=== PATIENT | female | born 1955 | race African-American/Black ===

== ENCOUNTER 2017-02-20 00:23 | Emergency (ER) | payer OTHER ==
--- NOTE | 2017-02-20 00:30 | PDOC ---
History of Present Illness - History of Present Illness Initial Comments: 02/20/17 00:52 The patient is a 61 year old female, with a significant past medical history of Asthma, [place] (2003), COPD, HLD who presents to the emergency department with difficulty breathing for the past 2 days. Prior to arrival, patient reports to using her albuterol pump multiple times with no relief. Patient reports her Asthma triggers are weather changes around this time of year. Patient denies chest pain, headache or dizziness. She denies fever, chills, abdominal pain, nausea, vomit, diarrhea or constipation. She denies dysuria, frequency, urgency or hematuria. PAST MEDICAL HISTORY: Asthma, [place] (2003), COPD, HLD PAST SURGICAL HISTORY:Gastric bypass, Appendectomy, Cardiac stent placement FAMILY HISTORY: no pertinent history SOCIAL HISTORY: Pt lives with family and is employed. Former smoker 20 years ago MEDICATIONS: reviewed ALLERGIES: Ciprofloxacin, Ciprofloxacin HCl , IV dye, Lactose General: No fevers or chills, no weakness, no weight loss HEENT: No change in vision. No sore throat, No ear pain CardioVascular: No chest pain or shortness of breath Respiratory:+wheezing +cough Gastrointestinal: no nausea, vomiting, diarrhea or constipation, No rectal bleeding Genitourinary: No dysuria, hematuria, or frequency Musculoskeletal: No joint or muscle pain or swelling Neurologic: No headache, vertigo, dizziness or loss of consciousness Psychiatric: nor depression Skin: No rashes or easy bruising Endocrine: no increased thirst or abnormal weight change Allergic: no skin or latex allergy All other systems reviewed and normal General: Well-nourished well-developed individual, no acute distress HEENT: Throat: Normal, tonsils normal, no erythema or exudate Neck: Supple, no meningeal signs, no lymphadenopathy Eyes::Pupils equal reactive and round, extraocular motion intact Chest: Nontender to palpation Cardiac: S1-S2 normal, regular rate and rhythm, no murmurs rubs or gallops Respiratory: +Mild expiratory wheezing Expiratory and inspiratory phases are equal. Abdomen: Soft, nondistended, normal bowel sounds, nontender to palpation diffusely Extremities: Warm, dry, no cyanosis, clubbing, or edema Skin: No rashes Neuro: Alert and oriented x3, nonfocal exam, grossly intact, normal gait Psych: Normal mood and affect <Sammi Funez - Last Filed: 02/20/17 00:52> - General History Source: Patient Exam Limitations: No Limitations - History of Present Illness Initial Comments: 02/20/17 01:07 A portion of this note was documented by scribe services under my direction. I have reviewed the details of the note, within reason, and agree with the documentation. The case summary and management plan written by me. Assessment and plan: This 61-year-old. Patient has a history of asthma with acute exacerbation. Patient said this is typical for her this time he is secondary to the pollens and seasonal ALLERGIES. Patient had been taking her inhaler every 4 hours with improvement in her symptoms return again. Patient's says that she normally takes prednisone. Patient given several DuoNeb's in the emergency room and a dose of penicillin prescription for prednisone was sent to her pharmacy Patient otherwise has her medication. Patient has a primary care physician she can follow-up with 02/20/17 01:59 Reevaluation: Patient feels much better status very mild wheezing patient has nebulizer and inhalers at home. <Mayito Rivera I - Last Filed: 02/20/17 02:00> - General Stated Complaint: DIFFICULTY BREATHING Time Seen by Provider: 02/20/17 00:29 Past History <Sammi Funez - Last Filed: 02/20/17 00:52> - Past Medical History Anemia: No Asthma: Yes Cancer: No Cardiac Disorders: Yes ([place] 2013) CVA: No COPD: Yes CHF: No Dementia: No Diabetes: No GI Disorders: No Disorders: No HTN: Yes Hypercholesterolemia: Yes Liver Disease: No Suicide Attempt (Hx): No Seizures: No Thyroid Disease: No - Surgical History Abdominal Surgery: Yes (Gastric bypass-SLEEVE) Appendectomy: Yes Cardiac Surgery: Yes (CARDIAC STENTS) Cholecystectomy: No Lung Surgery: No Neurologic Surgery: No Orthopedic Surgery: No - Immunization History Immunization Up to Date: No - Psycho/Social/Smoking Cessation Hx Anxiety: No Suicidal Ideation: No Smoking Status: No Smoking History: Former smoker Have you smoked in the past 12 months: No Number of Cigarettes Smoked Daily: 12 If you are a former smoker, when did you quit?: 20 years ago Hx Alcohol Use: No Drug/Substance Use Hx: No Substance Use Type: None Hx Substance Use Treatment: No <Mayito Rivera I - Last Filed: 02/20/17 02:00> - Past Medical History Allergies/Adverse Reactions: Allergies Allergy/AdvReac Type Severity Reaction Status Date / Time ciprofloxacin [From Cipro] Allergy Intermediate anaphylaxis Verified 04/20/16 07 :09 ciprofloxacin HCl Allergy Intermediate anaphylaxis Verified 04/20/16 07:09 [From Cipro] Iodinated Contrast- Oral and Allergy Intermediate anaphylaxis Verified 04/20/16 07:09 IV Dye lactose Allergy Intermediate Verified 04/20/16 07:09 Home Medications: Ambulatory Orders Clopidogrel Bisulfate [Clopidogrel] 75 mg PO DAILY 10/28/15 Valsartan [Diovan] 80 mg PO DAILY 10/28/15 Diltiazem Cd [Cardizem Cd -] 240 mg PO DAILY 03/26/16 Furosemide [Lasix -] 20 mg PO DAILY 03/26/16 Pravastatin Sodium 20 mg PO DAILY 03/26/16 Prednisone [Deltasone] 40 mg PO DAILY #8 tablet 02/20/17 *Physical Exam - Vital Signs Last Vital Signs Temp Pulse Resp BP Pulse Ox 97.9 F 85 26 H 202/109 96 02/20/17 00:35 02/20/17 00:35 02/20/17 00:35 02/20/17 00:35 02/20/17 00:35 <Sammi Funez - Last Filed: 02/20/17 00:52> ED Treatment Course - Medications Given in the ED: ED Medications Discontinued Medications Generic Name Dose Route Start Last Admin Trade Name Freq PRN Reason Stop Dose Admin Prednisone 60 mg 02/20/17 00:36 02/20/17 00:51 Deltasone - PO 02/20/17 00:37 60 mg ONCE ONE Administration <Sammi Funez - Last Filed: 02/20/17 00:52> *DC/Admit/Observation/Transfer - Attestations Scribe Attestion: 02/20/17 00:53 Documentation prepared by Sammi Funez, acting as emergency medicine medical director for Mayito Rivera MD <Sammi Funez - Last Filed: 02/20/17 00:52> <Mayito Rivera I - Last Filed: 02/20/17 02:00> Diagnosis at time of Disposition: Exacerbation of asthma - Prescriptions Prescriptions: Prednisone [Deltasone] 40 mg PO DAILY #8 tablet - Referrals Referrals: Сергей Alamo MD [Primary Care Provider] - - Patient Instructions Printed Discharge Instructions: Asthma -- Adult Additional Instructions: Take prednisone 40 mg a day for 4 days Use your inhaler 2 puffs as often as every 4 hours if needed. Return to the emergency department immediately with ANY new, persistent or worsening symptoms. Continue any medications as previously prescribed by your physician. You should follow up with your primary doctor as soon as possible regarding today's emergency department visit. . Please make sure your doctor reviews the results of your emergency evaluation. Thank you for coming to the Emergency Department today for your care. It was a pleasure to see you today. Please note that your evaluation is INCOMPLETE until you follow-up with your doctor.
[2017-02-20] MEDS ORDERED: predniSONE 20 MG TABLET (UD) PO ONE (00:36)
[2017-02-20 00:39] VITALS: TEMP 97.9; BMI 28.1
[2017-02-20] MEDS ORDERED: predniSONE 20 MG TABLET (UD) ONE (00:51)
[2017-02-20] MEDS: ALBUTEROL SO4 2.5/IPRATROPIUM 0.5 INH SOL 3 ML VIAL.NEB. NEB SCH ×4 (00:51→01:44)
[2017-02-20 02:16] VITALS: BP 152/101; PULSE 93
== END 2017-02-20 02:14 | disposition home or self-care (01) ==
LOC: JER 00:23
PROC: 3E0F7GC Introduction of Other Therapeutic Substance into Respiratory Tract, Via Natural or Artificial Opening (ICD-10-PCS; principal; 2017-02-20)
DX: J45.901 Unspecified asthma with (acute) exacerbation (principal); I25.2 Old myocardial infarction; I10 Essential (primary) hypertension; Z87.891 Personal history of nicotine dependence; Z95.5 Presence of coronary angioplasty implant and graft; J44.9 Chronic obstructive pulmonary disease, unspecified; E78.00 Pure hypercholesterolemia, unspecified
CPT/HCPCS: 99281-25

== ENCOUNTER 2017-05-08 13:42 | Emergency (ER) | payer OTHER ==
[2017-05-08 13:50] VITALS: TEMP 98.1; BMI 34.0
--- NOTE | 2017-05-08 14:27 | PDOC ---
History of Present Illness - General History Source: Patient Exam Limitations: No Limitations - History of Present Illness Initial Comments: 05/08/17 14:59 The patient is a 62 year old female, with a significant past medical history of COPD, Asthma, CHF, HLD, HTN, CAD (s/p VT) who presents to the emergency department with URI symptoms for the past 2 weeks. Patient reports visiting her PCP for these symptoms and was prescribed course of steroids and antibiotics. Patient has completed her 14 day course of steroids with no relief. Patient now reports productive (yellow) cough, with sore throat, fever, clear rhinorrhea and wheezing. Patient also notes to missing several doses of her Lasix medications. Patient notes increased leg edema and presents to the ED for further evaluation. 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 Patient denies chest pain, headache or dizziness. Patient denies abdominal pain , nausea, vomit, diarrhea or constipation. Patient denies dysuria, frequency, urgency or hematuria. Patient denies recent travel. Allergies: ciprofloxacin , ciprofloxacin HCl, Iodinated Contrast, lactose Past surgical history: None Social history: None PCP: Dr. Alamo Cardio: Russ <Sammi Funez - Last Filed: 05/08/17 15:00> <Gerber Warren - Last Filed: 05/08/17 17:03> - General Chief Complaint: Shortness of Breath Stated Complaint: COUGH, SOB Time Seen by Provider: 05/08/17 14:20 Past History <Sammi Funez - Last Filed: 05/08/17 15:00> - Past Medical History Anemia: No Asthma: Yes Cancer: No Cardiac Disorders: Yes ([place] 2013) CVA: No COPD: Yes CHF: No Dementia: No Diabetes: No GI Disorders: No Disorders: No HTN: Yes Hypercholesterolemia: Yes Liver Disease: No Seizures: No Thyroid Disease: No - Surgical History Abdominal Surgery: Yes (Gastric bypass-SLEEVE) Appendectomy: Yes Cardiac Surgery: Yes (CARDIAC STENTS) Cholecystectomy: No Lung Surgery: No Neurologic Surgery: No Orthopedic Surgery: No - Immunization History Immunization Up to Date: No - Suicide/Smoking/Psychosocial Hx Smoking Status: No Smoking History: Never smoked Have you smoked in the past 12 months: No Number of Cigarettes Smoked Daily: 12 If you are a former smoker, when did you quit?: 20 years ago Information on smoking cessation initiated: No Hx Alcohol Use: No Drug/Substance Use Hx: No Substance Use Type: None Hx Substance Use Treatment: No <Gerber Warren - Last Filed: 05/08/17 17:03> - Past Medical History Allergies/Adverse Reactions: Allergies Allergy/AdvReac Type Severity Reaction Status Date / Time ciprofloxacin [From Cipro] Allergy Intermediate anaphylaxis Verified 05/08/17 13 :50 ciprofloxacin HCl Allergy Intermediate anaphylaxis Verified 05/08/17 13:50 [From Cipro] Iodinated Contrast- Oral and Allergy Intermediate anaphylaxis Verified 05/08/17 13:50 IV Dye lactose Allergy Intermediate Verified 05/08/17 13:50 Home Medications: Ambulatory Orders Clopidogrel Bisulfate [Clopidogrel] 75 mg PO DAILY 10/28/15 Valsartan [Diovan] 80 mg PO DAILY 10/28/15 Diltiazem Cd [Cardizem Cd -] 240 mg PO DAILY 03/26/16 Furosemide [Lasix -] 20 mg PO DAILY 03/26/16 Pravastatin Sodium 20 mg PO DAILY 03/26/16 Albuterol Sulfate Inhaler - [Ventolin Hfa Inhaler -] 1 - 2 inh PO Q4H #1 inhaler 05/08/17 Azithromycin 250 mg PO DAILY 4 Days #4 tablet 05/08/17 Azithromycin 500 mg PO 1XPACU 1 Days #1 tablet 05/08/17 Lorazepam [Ativan] 1 mg PO DAILY 05/08/17 Prednisone 10 mg PO DAILY 3 Days #3 tablet 05/08/17 Review of Systems - Review of Systems Able to Perform ROS?: Yes Comments:: 05/08/17 14:59 A complete review of 10 out of 10 review of systems is taken and is negative apart from what is previously mentioned below and in the HPI. <Sammi Funez - Last Filed: 05/08/17 15:00> *Physical Exam - Vital Signs Last Vital Signs Temp Pulse Resp BP Pulse Ox 98.1 F 92 H 20 163/94 98 05/08/17 13:46 05/08/17 13:46 05/08/17 13:46 05/08/17 13:46 05/08/17 13:46 - Physical Exam Comments: 05/08/17 15:00 Vitals: Triage Vital signs reviewed General Appearance: no acute distress, well nourished well developed, Head: Atraumatic, normocephalic Neck: Supple;No Nuchal rigidity Chest Wall: Nontender Cardiac: Regular rate and rhythm, no murmurs, no rubs, no gallops, Lungs: +Bilateral inspiratory and expiratory wheezing. Good air movement bilaterally, Abdomen: Soft, nondistended, normal bowel sounds, nontender to palpation Extremities: Full range of motion to all extremities, no cyanosis, clubbing, or edema Skin: Warm and dry, no rashes or lesions, no petechiae <Sammi Funez - Last Filed: 05/08/17 15:00> - Vital Signs Last Vital Signs Temp Pulse Resp BP Pulse Ox 98.1 F 92 H 20 163/94 98 05/08/17 13:46 05/08/17 13:46 05/08/17 13:46 05/08/17 13:46 05/08/17 13:46 <Gerber Warren - Last Filed: 05/08/17 17:03> ED Treatment Course - LABORATORY CBC & Chemistry Diagram: 05/08/17 14:55 05/08/17 14:55 - Medications Given in the ED: ED Medications Discontinued Medications Generic Name Dose Route Start Last Admin Trade Name Freq PRN Reason Stop Dose Admin Albuterol/Ipratropium 3 amp 05/08/17 14:28 05/08/17 14:40 Duoneb - NEB 05/08/17 14:29 3 amp ONCE ONE Administration <Sammi Funez - Last Filed: 05/08/17 15:00> - LABORATORY CBC & Chemistry Diagram: 05/08/17 14:55 05/08/17 14:55 <Gerber Warren - Last Filed: 05/08/17 17:03> Medical Decision Making - Medical Decision Making 05/08/17 15:09 Well-appearing no apparent distress history and examination consistent with viral asthma exacerbation. Patient has also stopped taking her by mouth Lasix at home. We'll give her her home dose of by mouth Lasix. We'll check chest x-ray labs do nebs and reassess. 05/08/17 16:19 History and examination consistent with wheezy bronchitis. We'll treat with Z- Iglesia additional 3 days of 10 mg prednisone and Ventolin MDI. Patient will follow- up with her doctor on Wednesday. No acute findings consistent with pneumonia on chest x-ray Findings, need follow-up and strict return instructions discussed with patient. Reevaluation 445. As patient was leaving she mentioned that she had a crampy pain on the left side. She attributed this to coughing. We advised her to stay for an EKG and a troponin given her past medical history the patient's she was competent was muscular and left emergency Department I called the patient at home on her phone advised her to return for any persistent worsening symptoms she said she was feeling better but would return if symptoms worsened <Gerber Warren - Last Filed: 05/08/17 17:03> *DC/Admit/Observation/Transfer - Attestations Scribe Attestion: 05/08/17 15:00 Documentation prepared by Sammi Funez, acting as medical staff coordinator for Gerber Warren MD, /DO. <Sammi Funez - Last Filed: 05/08/17 15:00> - Discharge Dispostion Admit: No <Gerber Warren - Last Filed: 05/08/17 17:03> Diagnosis at time of Disposition: Bronchitis - Discharge Dispostion Disposition: HOME - Prescriptions Prescriptions: Albuterol Sulfate Inhaler - [Ventolin Hfa Inhaler -] 1 - 2 inh PO Q4H #1 inhaler Azithromycin 250 mg PO DAILY 4 Days #4 tablet Azithromycin 500 mg PO 1XPACU 1 Days #1 tablet Prednisone 10 mg PO DAILY 3 Days #3 tablet - Referrals Referrals: Сергей Alamo MD [Primary Care Provider] - - Patient Instructions Printed Discharge Instructions: Acute Bronchitis Additional Instructions: Azithromycin, prednisone, Ventolin MDI as prescribed. Follow-up with her doctor on Wednesday. Return to ED for any severe worsening symptoms or for any concerns. Do not skip any medications including her Lasix.
[2017-05-08] MEDS ORDERED: ALBUTEROL SO4 2.5/IPRATROPIUM 0.5 INH SOL 3 ML VIAL.NEB. NEB ONE ×2 (14:28→14:41)
[2017-05-08 15:01] LABS: BASOPHIL 0.8 % (0-2.0); EOSINOPHIL 0.1 % (0-4.5); MCH 25.6 pg (25.7-33.7); MCHC 33.2 g/dl (32.0-36.0); MEAN CELL VOLUME 77.3 fl (80-96); MEAN PLT VOLUME 8.8 fl (7.5-11.1); NEUTROPHILS 83.1 % (42.8-82.8); PLATELET COUNT 316 K/MM3 (134-434); RDW 20.2 % (11.6-15.6); WHITE BLOOD COUNT 14.4 K/mm3 (4.0-10.0)
[2017-05-08] MEDS ORDERED: FUROSEMIDE 40 MG TABLET (FP) ONE (15:10)
[2017-05-08] MEDS ORDERED: FUROSEMIDE 40 MG TABLET (FP) PO ONE (15:10)
[2017-05-08 15:25] LABS: ALBUMIN 3.8 g/dl (3.4-5.0); ALK PHOS 75 U/L (45-117); ANION GAP 8 (8-16); BILIRUBIN,TOTAL 0.8 mg/dL (0.2-1.0); CALCIUM 9.4 mg/dL (8.5-10.1); CO2 32 mmol/L (21-32); GLUCOSE,RANDOM 120 mg/dL (74-106); SGOT/AST 14 U/L (15-37); SGPT/ALT 25 U/L (12-78); TOT PROT 7.3 g/dl (6.4-8.2)
[2017-05-08 16:43] VITALS: BP 157/66; PULSE 89
== END 2017-05-08 16:43 | disposition home or self-care (01) ==
LOC: JER 13:42
PROC: 3E0F7GC Introduction of Other Therapeutic Substance into Respiratory Tract, Via Natural or Artificial Opening (ICD-10-PCS; principal; 2017-05-08)
DX: J40 Bronchitis, not specified as acute or chronic (principal); J44.9 Chronic obstructive pulmonary disease, unspecified; I50.9 Heart failure, unspecified; E78.5 Hyperlipidemia, unspecified; I25.2 Old myocardial infarction
CPT/HCPCS: 36415; 71020-TC; 80053; 83880; 85025; 87804; 99283-25

== ENCOUNTER 2017-05-28 09:44 | Observation (INO) | payer OTHER ==
[2017-05-28 09:50] VITALS: BMI 40.2
[2017-05-28] MEDS ORDERED: ALBUTEROL SO4 2.5/IPRATROPIUM 0.5 INH SOL 3 ML VIAL.NEB. NEB ONE ×4 (11:39→13:42)
[2017-05-28] MEDS ORDERED: predniSONE 20 MG TABLET (UD) PO ONE (11:48)
[2017-05-28] MEDS ORDERED: predniSONE 20 MG TABLET (UD) ONE ×2 (12:00→12:04)
[2017-05-28 13:08] LABS: BASO % 0.5 % (0-2.0); EOS % 8.4 % (0-4.5); MCH 25.6 pg (25.7-33.7); MCHC 32.2 g/dl (32.0-36.0); MEAN CELL VOLUME 79.3 fl (80-96); MEAN PLT VOLUME 8.9 fl (7.5-11.1); NEUT % 37.3 % (42.8-82.8); PLATELET COUNT 312 K/MM3 (134-434); RDW 19.2 % (11.6-15.6)
--- NOTE | 2017-05-28 13:09 | PDOC ---
History of Present Illness - History of Present Illness Initial Comments: 05/28/17 13:41 The patient is a 62 year old female with a significant PMH of COPD, asthma, CHF , HTN, hyperlipidemia, CAD, and 2 past MIs (2013, 2016 s/p stent placement) who presents to the emergency department with wheezing and increased shortness of breath beginning approximately 3 days ago. She reports associated chest pain only when she coughs. The patient reports using her pump this morning at about 1AM to no relief. The patient reports being last seen in the ED on 05/08 for productive cough and shortness of breath, for which she was given a 2-day course of Prednisone. She notes she is frequently in the hospital for her shortness of breath. The patient also notes that she is not fully compliant with her statin or Lasix medications. The patient denies headache and dizziness. Denies fever, chills, nausea, vomit, diarrhea and constipation. Denies dysuria, frequency, urgency and hematuria. Allergies: Ciprofloxacin, Oral & IV contrast, Lactose. Past surgical history: Cardiac stent placement. Gastric bypass SLEEVE. Appendectomy. Social history: Former smoker (20 years ago). No reported alcohol or drug use. PCP: Dr. Alamo [employer] Modeler: Dr. Solano <Josep Rudolph - Last Filed: 05/28/17 14:58> - General History Source: Patient, Old Records Exam Limitations: No Limitations <Josep Cantrell - Last Filed: 05/29/17 08:35> - General Chief Complaint: Shortness of Breath Stated Complaint: SOB (ASTHMA) Time Seen by Provider: 05/28/17 11:08 Past History <Josep Rudolph - Last Filed: 05/28/17 14:58> - Past Medical History Anemia: No Asthma: Yes Cancer: No Cardiac Disorders: Yes (IN 2013) CVA: No COPD: Yes CHF: No Dementia: No Diabetes: No GI Disorders: No Disorders: No HTN: Yes Hypercholesterolemia: Yes Liver Disease: No Seizures: No Thyroid Disease: No - Surgical History Abdominal Surgery: Yes (Gastric bypass-SLEEVE) Appendectomy: Yes Cardiac Surgery: Yes (CARDIAC STENTS) Cholecystectomy: No Lung Surgery: No Neurologic Surgery: No Orthopedic Surgery: No - Immunization History Immunization Up to Date: No - Suicide/Smoking/Psychosocial Hx Smoking Status: No Smoking History: Never smoked Have you smoked in the past 12 months: No Number of Cigarettes Smoked Daily: 12 If you are a former smoker, when did you quit?: 20 years ago Information on smoking cessation initiated: No Hx Alcohol Use: No Drug/Substance Use Hx: No Substance Use Type: None Hx Substance Use Treatment: No <Josep Cantrell - Last Filed: 05/29/17 08:35> - Past Medical History Allergies/Adverse Reactions: Allergies Allergy/AdvReac Type Severity Reaction Status Date / Time ciprofloxacin [From Cipro] Allergy Intermediate anaphylaxis Verified 05/08/17 13 :50 ciprofloxacin HCl Allergy Intermediate anaphylaxis Verified 05/08/17 13:50 [From Cipro] Iodinated Contrast- Oral and Allergy Intermediate anaphylaxis Verified 05/08/17 13:50 IV Dye lactose Allergy Intermediate Verified 05/08/17 13:50 Home Medications: Ambulatory Orders Clopidogrel Bisulfate [Clopidogrel] 75 mg PO DAILY 10/28/15 Valsartan [Diovan] 80 mg PO DAILY 10/28/15 Diltiazem Cd [Cardizem Cd -] 240 mg PO DAILY 03/26/16 Furosemide [Lasix -] 20 mg PO DAILY 03/26/16 Pravastatin Sodium 20 mg PO DAILY 03/26/16 Albuterol Sulfate Inhaler - [Ventolin Hfa Inhaler -] 1 - 2 inh PO Q4H #1 inhaler 05/08/17 Lorazepam [Ativan] 1 mg PO DAILY PRN 05/08/17 Review of Systems - Review of Systems Able to Perform ROS?: Yes Comments:: 05/28/17 13:42 GENERAL/CONSTITUTIONAL: No fever or chills. No weakness. HEAD, EYES, EARS, NOSE AND THROAT: No change in vision. No ear pain or discharge. No sore throat. CARDIOVASCULAR: (+) Chest pain w/ cough. RESPIRATORY: (+) Wheezing. (+) Shortness of breath. No hemoptysis. GASTROINTESTINAL: No nausea, vomiting, diarrhea or constipation. GENITOURINARY: No dysuria, frequency, or change in urination. MUSCULOSKELETAL: No joint or muscle swelling or pain. No neck or back pain. SKIN: No rash NEUROLOGIC: No headache, vertigo, loss of consciousness, or change in strength/ sensation. ENDOCRINE: No increased thirst. No abnormal weight change. HEMATOLOGIC/LYMPHATIC: No anemia, easy bleeding, or history of blood clots. ALLERGIC/IMMUNOLOGIC: No hives or skin allergy. <Josep Rudolph - Last Filed: 05/28/17 14:58> *Physical Exam - Vital Signs Last Vital Signs Temp Pulse Resp BP Pulse Ox 97.9 F 88 24 141/84 100 05/28/17 09:45 05/28/17 11:16 05/28/17 09:45 05/28/17 09:45 05/28/17 11:16 - Physical Exam Comments: 05/28/17 13:42 GENERAL: Awake, alert, and fully oriented, in no acute distress HEAD: No signs of trauma EYES: PERRLA, EOMI, sclera anicteric, conjunctiva clear ENT: Auricles normal inspection, hearing grossly normal, nares patent, oropharynx clear without exudates. Moist mucosa NECK: Normal ROM, supple, no lymphadenopathy, JVD, or masses LUNGS: (+) Bilateral wheezing. No crackles. HEART: Regular rate and rhythm, normal S1 and S2, no murmurs, rubs or gallops ABDOMEN: Soft, nontender, normoactive bowel sounds. No guarding, no rebound. No masses EXTREMITIES: Normal range of motion, no edema. No clubbing or cyanosis. No cords, erythema, or tenderness NEUROLOGICAL: Cranial nerves II through XII grossly intact. Normal speech, normal gait SKIN: Warm, Dry, normal turgor, no rashes or lesions noted. <Josep Rudolph - Last Filed: 05/28/17 14:58> - Vital Signs Last Vital Signs Temp Pulse Resp BP Pulse Ox 97.9 F 88 24 141/84 100 05/28/17 09:45 05/28/17 11:16 05/28/17 09:45 05/28/17 09:45 05/28/17 11:16 <Josep aCntrell - Last Filed: 05/29/17 08:35> Heart Score/ECG Review #1 ECG reviewed & interpreted by me at: 12:35 05/28/17 13:07 NSR 82 with 1st degree AV block, no std/blanca, TWI avL, T wave flat V6, QTC 493 msec <Josep Cantrell - Last Filed: 05/29/17 08:35> ED Treatment Course - LABORATORY CBC & Chemistry Diagram: 05/28/17 12:00 05/28/17 11:39 - ADDITIONAL ORDERS Additional order review: Laboratory Results 05/28/17 12:00 PT with INR 11.30 INR 1.00 PTT (Actin FS) 30.5 05/28/17 12:00 Influenza Types A,B Antigen (MICHAEL) - Final Nasopharyngeal Swab - Final 05/28/17 12:00 RBC 4.86 MCV 79.3 L MCHC 32.2 RDW 19.2 H MPV 8.9 Neutrophils % 37.3 L D Lymphocytes % 49.3 H D Monocytes % 4.5 Eosinophils % 8.4 H D Basophils % 0.5 - Medications Given in the ED: ED Medications Discontinued Medications Generic Name Dose Route Start Last Admin Trade Name Freq PRN Reason Stop Dose Admin Albuterol/Ipratropium 1 amp 05/28/17 11:39 05/28/17 12:03 Duoneb - NEB 05/28/17 11:40 1 amp ONCE ONE Administration Albuterol/Ipratropium 2 amp 05/28/17 11:48 05/28/17 12:53 Duoneb - NEB 05/28/17 11:49 2 amp ONCE ONE Administration Prednisone 60 mg 05/28/17 11:48 05/28/17 12:05 Deltasone - PO 05/28/17 11:49 60 mg ONCE ONE Administration - Consult/PCP Time Called: 14:50 Case discussed with personal care physician: Сергей Alamo (D/w OZ Garcia) <Josep Rudolph - Last Filed: 05/28/17 14:58> - LABORATORY CBC & Chemistry Diagram: 05/28/17 12:00 05/28/17 11:39 - RADIOLOGY Radiology Studies Ordered: Category Date Time Status CHEST X-RAY PORTABLE* [RAD] Stat Radiology 05/28/17 11:39 Completed - Medications Given in the ED: ED Medications Discontinued Medications Generic Name Dose Route Start Last Admin Trade Name Freq PRN Reason Stop Dose Admin Albuterol/Ipratropium 1 amp 05/28/17 11:39 05/28/17 12:03 Duoneb - NEB 05/28/17 11:40 1 amp ONCE ONE Administration Albuterol/Ipratropium 2 amp 05/28/17 11:48 05/28/17 12:53 Duoneb - NEB 05/28/17 11:49 2 amp ONCE ONE Administration Prednisone 60 mg 05/28/17 11:48 05/28/17 12:05 Deltasone - PO 05/28/17 11:49 60 mg ONCE ONE Administration <Josep Cantrell - Last Filed: 05/29/17 08:35> Medical Decision Making - Critical Care Time Total Critical Care Time (minutes): 35 Critical Care Statement: The care of this patient involved high complexity decision making to prevent further life threatening deterioration of the patient 's condition and/or to evaluate & treat vital organ system(s) failure or risk of failure. - Medical Decision Making 05/28/17 13:07 A portion of this note was documented by scribe services under my direction. I have reviewed the details of the note, within reason, and agree with the documentation with the following case summary and management plan written by me. Patient treated in the ED. Nursing notes are reviewed and incorporated into the medical decision-making. Vital signs reviewed. Peripheral IV access obtained by the nurse, laboratory studies are drawn and sent, reviewed and interpreted by myself. Vital Signs Temp Pulse Resp BP Pulse Ox 97.9 F 88 24 141/84 100 05/28/17 09:45 05/28/17 11:16 05/28/17 09:45 05/28/17 09:45 05/28/17 11:16 62 year old female with past medical history of asthma, COPD, congestive heart failure, hypertension, hyperlipidemia, coronary disease status post [place] presents with shortness of breath for 3 days. Patient reports that she has been having wheezing for 3 days. She's been using albuterol with minimal relief. Denies fevers or chills or chest pain. Came into the ED for further evaluation. Also noted that she's been experiencing lower extremity edema over last several days. She reports that she has not adherent to her Lasix because it makes her urinate often. Differential includes COPD exacerbation versus CHF exacerbation versus pneumonia or upper respiratory infection. We'll obtain chest x-ray, labs, BNP. Nebs, prednisone and reassess. 05/28/17 15:07 CBC, BMP 05/28/17 12:00 05/28/17 11:39 CMP Sodium 141 mmol/L (136-145) 05/28/17 11:39 Potassium 3.8 mmol/L (3.5-5.1) 05/28/17 11:39 Chloride 103 mmol/L (98-107) 05/28/17 11:39 Carbon Dioxide 29 mmol/L (21-32) 05/28/17 11:39 Anion Gap 9 (8-16) 05/28/17 11:39 BUN 10 mg/dL (7-18) D 05/28/17 11:39 Creatinine 0.9 mg/dL (0.55-1.02) 05/28/17 11:39 Creat Clearance w eGFR > 60 (>60) 05/28/17 11:39 Random Glucose 83 mg/dL (74-106) D 05/28/17 11:39 Calcium 9.5 mg/dL (8.5-10.1) 05/28/17 11:39 Phosphorus 3.7 mg/dL (2.5-4.9) 05/28/17 11:39 Magnesium 1.8 mg/dL (1.8-2.4) 05/28/17 11:39 Total Bilirubin 0.9 mg/dL (0.2-1.0) 05/28/17 11:39 AST 16 U/L (15-37) 05/28/17 11:39 ALT 22 U/L (12-78) 05/28/17 11:39 Alkaline Phosphatase 75 U/L (45-117) 05/28/17 11:39 Creatine Kinase 283 IU/L (26-192) H 05/28/17 11:39 Creatine Kinase Index 0.4 % (0.0-5.0) 05/28/17 11:39 CK-MB (CK-2) 1.32 ng/mL (0.5-3.6) 05/28/17 11:39 Troponin I 0.17 ng/ml (0.00-0.05) H 05/28/17 11:39 B-Natriuretic Peptide 144.02 pg/ml (5-125) H 05/28/17 11:39 Total Protein 7.2 g/dl (6.4-8.2) 05/28/17 11:39 Albumin 3.9 g/dl (3.4-5.0) 05/28/17 11:39 Urine Test Results Urine Color Ltyellow 05/28/17 12:00 Urine Appearance Clear 05/28/17 12:00 Urine pH 7.0 (5.0-8.0) 05/28/17 12:00 Ur Specific [place] 1.011 (1.001-1.035) 05/28/17 12:00 Urine Protein Negative (NEGATIVE) 05/28/17 12:00 Urine Glucose (UA) Negative (NEGATIVE) 05/28/17 12:00 Urine Ketones Negative (NEGATIVE) 05/28/17 12:00 Urine Blood Negative (NEGATIVE) 05/28/17 12:00 Urine Nitrite Negative (NEGATIVE) 05/28/17 12:00 Urine Bilirubin Negative (NEGATIVE) 05/28/17 12:00 Patient's wheezing has improved but still continues to persist. Patient's troponin is slightly elevated though I have less suspicion for acute coronary syndrome at this time. Patient has shortness of breath with her wheezing. 2 g of IV magnesium was ordered. We'll repeat the troponin and trended. Given these findings, we'll admit the patient to the hospital. Case discussed with nurse practitioner Lion accepts the patient to telemetry observation. Case discussed in detail with admitting physician including history, physical exam and ancillary studies. Admitting physician has assumed care for the patient, will follow all pending diagnostics and will complete the evaluation and treatment. <Josep Cantrell - Last Filed: 05/29/17 08:35> *DC/Admit/Observation/Transfer - Attestations Scribe Attestion: 05/28/17 13:42 Documentation prepared by Josep Rudolph, acting as medical director occupational health for Josep Cantrell MD. <Josep Rudolhp - Last Filed: 05/28/17 14:58> - Discharge Dispostion Admit: Yes <Josep Cantrell - Last Filed: 05/29/17 08:35> Diagnosis at time of Disposition: COPD exacerbation, Elevated troponin - Discharge Dispostion Condition at time of disposition: Stable
[2017-05-28 13:25] LABS: PROTHROMBIN TIME (PATIENT) 11.3 SEC (9.98-11.88)
[2017-05-28] MEDS ORDERED: ALBUTEROL SO4 0.083% IH SOL 2.5 MG/3 ML VIAL.NEB. NEB ONE (13:26)
[2017-05-28 13:27] LABS: ACTIVATED PTT 30.5 SECONDS (26.9-34.4)
[2017-05-28 13:36] LABS: URINE APPEARANCE CLEAR; URINE BILIRUBIN NEGATIVE (NEGATIVE); URINE BLOOD NEGATIVE (NEGATIVE); URINE COLOR LTYELLOW; URINE GLUCOSE (UA) NEGATIVE (NEGATIVE); URINE KETONE NEGATIVE (NEGATIVE); URINE LEUK ESTERASE NEGATIVE (NEGATIVE); URINE NITRITE NEGATIVE (NEGATIVE); URINE PROTEIN NEGATIVE (NEGATIVE); URINE UROBILINOGEN NEGATIVE mg/dL (0.2-1.0)
[2017-05-28 13:39] LABS: ALBUMIN 3.9 g/dl (3.4-5.0); ANION GAP 9 (8-16); BILIRUBIN,TOTAL 0.9 mg/dL (0.2-1.0); CALCIUM 9.5 mg/dL (8.5-10.1); CO2 29 mmol/L (21-32); CREATININE 0.9 mg/dL (0.55-1.02); GLUCOSE,RANDOM 83 mg/dL (74-106); MAGNESIUM 1.8 mg/dL (1.8-2.4); PHOSPHOROUS 3.7 mg/dL (2.5-4.9); SGOT/AST 16 U/L (15-37); SGPT/ALT 22 U/L (12-78); TOT PROT 7.2 g/dl (6.4-8.2)
[2017-05-28 13:43] LABS: ALK PHOS 75 U/L (45-117); CPK 283 IU/L (26-192); TROPONIN I 0.17 ng/ml (0.00-0.05)
[2017-05-28] MEDS ORDERED: MAGNESIUM SULF 50% (8.12 MEQ/2 ML-1 GM VIAL) IVPB ONE (14:16)
[2017-05-28] MEDS ORDERED: MAGNESIUM SULF 50% (8.12 MEQ/2 ML-1 GM VIAL) ONE (14:47)
[2017-05-28] MEDS ORDERED: LORazepam 1 MG TABLET PO PRN (15:01)
--- NOTE | 2017-05-28 16:40 | CON.PULM ---
Consult Consult Specialty:: PULMONARY Referred by:: JAMES Reason for Consultation:: ASTHMA - History of Present Illness Chief Complaint: SOB/COUGH/ History of Present Illness: The patient is a 62 year old female with a significant PMH of COPD, asthma, CHF , HTN, hyperlipidemia, CAD, and 2 past MIs (2013, 2016 s/p stent placement) who presents to the emergency department with wheezing and increased shortness of breath beginning approximately 3 days ago. She reports associated chest pain only when she coughs. The patient reports using her pump this morning at about 1AM to no relief. The patient reports being last seen in the ED on 05/08 for productive cough and shortness of breath, for which she was given a 2-day course of Prednisone. She notes she is frequently in the hospital for her shortness of breath. The patient also notes that she is not fully compliant with her statin or Lasix medications. The patient denies headache and dizziness. Denies fever, chills, nausea, vomit, diarrhea and constipation. Denies dysuria, frequency, urgency and hematuria - History Source History Provided By: Patient, Medical Record Limitations to Obtaining History: No Limitations - Past Medical History APPLICATIONS SCIENTIST: No: Alzheimer's Cardio/Vascular: Yes: CAD, HTN, [place] (s/p stent), Other. No: AFIB Pulmonary: Yes: Asthma, Bronchitis, COPD Gastrointestinal: No: Ascites Hepatobiliary: No: Cirrhosis Renal/: No: Renal Failure Reproductive: Yes: Postmenopausal ...: No Heme/Onc: No: Anemia Infectious Disease: No: AIDS Psych: No: Addictions Musculoskeletal: No: Bursitis Rheumatology: No: Fibromyalgia Endocrine: No: Diabetes Mellitus - Past Surgical History Past Surgical History: Yes: , Appendectomy - Alcohol/Substance Use Hx Alcohol Use: No - Smoking History Smoking history: Never smoked Have you smoked in the past 12 months: No Aproximately how many cigarettes per day: 12 If you are a former smoker, when did you quit?: 20 years ago - Social History Usual Living Arrangement: With Spouse 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, 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 Place of : [facility] History of Recent Travel: No Home Medications - Allergies Allergies/Adverse Reactions: Allergies Allergy/AdvReac Type Severity Reaction Status Date / Time ciprofloxacin [From Cipro] Allergy Intermediate anaphylaxis Verified 05/08/17 13 :50 ciprofloxacin HCl Allergy Intermediate anaphylaxis Verified 05/08/17 13:50 [From Cipro] Iodinated Contrast- Oral and Allergy Intermediate anaphylaxis Verified 05/08/17 13:50 IV Dye lactose Allergy Intermediate Verified 05/08/17 13:50 - Home Medications Home Medications: Ambulatory Orders Clopidogrel Bisulfate [Clopidogrel] 75 mg PO DAILY 10/28/15 Valsartan [Diovan] 80 mg PO DAILY 10/28/15 Diltiazem Cd [Cardizem Cd -] 240 mg PO DAILY 03/26/16 Furosemide [Lasix -] 20 mg PO DAILY 03/26/16 Pravastatin Sodium 20 mg PO DAILY 03/26/16 Albuterol Sulfate Inhaler - [Ventolin Hfa Inhaler -] 1 - 2 inh PO Q4H #1 inhaler 05/08/17 Lorazepam [Ativan] 1 mg PO DAILY PRN 05/08/17 Family Disease History - Family Disease History Family Disease History: Diabetes: Mother Review of Systems - Review of Systems Constitutional: denies: Fever Eyes: denies: Blurred Vision HENT: denies: Difficult Swallowing Neck: denies: Decreased ROM Cardiovascular: reports: Shortness of Breath. denies: Chest Pain Respiratory: reports: Cough, Exercise Intolerance, SOB, SOB on Exertion, Wheezing. denies: Hemoptysis Gastrointestinal: denies: Abdominal Pain Physical Exam Vital Sings: Vital Signs Temperature 97.9 F 05/28/17 09:45 Pulse Rate 88 05/28/17 11:16 Respiratory Rate 24 05/28/17 09:45 Blood Pressure 141/84 05/28/17 09:45 O2 Sat by Pulse Oximetry (%) 100 05/28/17 11:16 Constitutional: Yes: Calm Eyes: Yes: EOM Intact HENT: Yes: Normocephalic Neck: Yes: Trachea Midline Cardiovascular: Yes: Regular Rate and Rhythm, S1, S2 Respiratory: Yes: Wheezes Gastrointestinal: Yes: Normal Bowel Sounds, Abdomen, Obese Edema: No Labs: CBC, BMP 05/28/17 12:00 05/28/17 11:39 Imaging - Results Chest X-ray: Report Reviewed, Image Reviewed Problem List - Problems (1) COPD exacerbation Code(s): J44.1 - CHRONIC OBSTRUCTIVE PULMONARY DISEASE W (ACUTE) EXACERBATION (2) ASHD (arteriosclerotic heart disease) Code(s): I25.10 - ATHSCL HEART DISEASE OF [place] CORONARY ARTERY W/O ANG PCTRS (3) Asthma Code(s): J45.909 - UNSPECIFIED ASTHMA, UNCOMPLICATED Assessment/Plan A/E BRONCHIAL ASTHMA LIKELY URI VS BRONCHITIS SHORT COURSE STEROIDS/CLAUDIA/LABA/ICS DAILY PEAK FLOW/O2 REQUIRED HOLD ABS FOR NOW PATIENT WANTS TO BE DISCHARGED TOMORROW WILL FOLLOW Efren RENTERIA MD
[2017-05-28] MEDS ORDERED: ALBUTEROL SO4 0.083% IH SOL 2.5 MG/3 ML VIAL.NEB. NEB PRN (16:41)
[2017-05-28] MEDS ORDERED: methylPREDNISolone NA SUCC 40 MG/1 ML VIAL ONE (18:14)
[2017-05-28] MEDS: methylPREDNISolone NA SUCC 40 MG/1 ML VIAL IVPUSH SCH (18:31)
[2017-05-28 19:45] LABS: URINE LEUK ESTERASE TRACE (NEGATIVE)
[2017-05-28] MEDS: HEPARIN NA (PORCINE) 5,000 UNITS/ML 1ML VIAL SQ SCH (21:03)
[2017-05-28] MEDS ORDERED: ATORVASTATIN CA 20 MG TABLET (FP) PO SCH (22:00)
[2017-05-28 22:13] LABS: EOS # 0.7 # (0-4.5); MONO # 0.4 # (3.8-10.2)
[2017-05-29] MEDS: methylPREDNISolone NA SUCC 40 MG/1 ML VIAL IVPUSH SCH ×2 (01:25→09:45)
[2017-05-29] MEDS: ALBUTEROL SO4 2.5/IPRATROPIUM 0.5 INH SOL 3 ML VIAL.NEB. NEB SCH ×3 (01:35→12:15)
[2017-05-29] MEDS ORDERED: ACETAMINOPHEN 325 MG TABLET (FP) PO ONE (05:22)
[2017-05-29 08:17] LABS: CHOLESTEROL 219 mg/dL (50-200)
[2017-05-29] MEDS: HEPARIN NA (PORCINE) 5,000 UNITS/ML 1ML VIAL SQ SCH (09:45)
[2017-05-29] MEDS ORDERED: CLOPIDOGREL BISULFATE 75 MG TABLET (FP) PO SCH (10:00)
[2017-05-29] MEDS ORDERED: FUROSEMIDE 40 MG TABLET (FP) PO SCH (10:00)
[2017-05-29] MEDS ORDERED: VALSARTAN 80 MG TABLET (UD) PO SCH (10:00)
[2017-05-29] MEDS ORDERED: ACETAMINOPHEN 325 MG TABLET (FP) PO PRN (11:10)
--- NOTE | 2017-05-29 11:31 | PN ---
Progress Note, Physician History of Present Illness: pulmonary alert,no distress,-sob,-cough - Current Medication List Current Medications: Active Medications Acetaminophen (Tylenol -) 650 mg PO Q6H PRN PRN Reason: FEVER OR PAIN Albuterol Sulfate (Ventolin 0.083% Nebulizer Soln -) 1 amp NEB Q1H PRN PRN Reason: SHORT OF BREATH/WHEEZING Albuterol/Ipratropium (Duoneb -) 1 amp NEB QIDR [facility] Last Admin: 05/29/17 06:02 Dose: 1 amp Atorvastatin Calcium (Lipitor -) 20 mg PO HS [facility] Last Admin: 05/28/17 21:03 Dose: 20 mg Clopidogrel Bisulfate (Plavix -) 75 mg PO DAILY [facility] Last Admin: 05/29/17 09:46 Dose: 75 mg Diltiazem HCl (Cardizem Cd -) 240 mg PO DAILY [facility] Last Admin: 05/29/17 09:46 Dose: 240 mg Furosemide (Lasix -) 20 mg PO DAILY [facility] Last Admin: 05/29/17 09:45 Dose: 20 mg Heparin Sodium (Porcine) (Heparin -) 5,000 unit SQ BID [facility] Last Admin: 05/29/17 09:45 Dose: Not Given Lorazepam (Ativan -) 1 mg PO DAILY PRN PRN Reason: ANXIETY Methylprednisolone Sodium Succinate (Solu-Medrol -) 40 mg IVPUSH Q8H-IV [facility] Last Admin: 05/29/17 09:45 Dose: 40 mg Valsartan (Diovan -) 80 mg PO DAILY [facility] Last Admin: 05/29/17 09:46 Dose: 80 mg - Objective Vital Signs: Vital Signs Temperature 97.8 F 05/29/17 05:52 Pulse Rate 88 05/29/17 05:52 Respiratory Rate 18 05/29/17 05:52 Blood Pressure 142/74 05/29/17 05:52 O2 Sat by Pulse Oximetry (%) 96 05/28/17 22:59 Constitutional: Yes: Well Nourished, Calm Eyes: Yes: WNL HENT: Yes: WNL Neck: Yes: WNL Cardiovascular: Yes: Regular Rate and Rhythm, S1, S2 Respiratory: Yes: CTA Bilaterally Gastrointestinal: Yes: Normal Bowel Sounds, Soft Extremities: Yes: WNL Edema: No Labs: Assessment/Plan Problem List - Problems (1) COPD exacerbation Code(s): J44.1 - CHRONIC OBSTRUCTIVE PULMONARY DISEASE W (ACUTE) EXACERBATION (2) ASHD (arteriosclerotic heart disease) Code(s): I25.10 - ATHSCL HEART DISEASE OF [place] CORONARY ARTERY W/O ANG PCTRS (3) Asthma Code(s): J45.909 - UNSPECIFIED ASTHMA, UNCOMPLICATED Assessment/Plan A/E BRONCHIAL ASTHMA LIKELY URI VS BRONCHITIS Prednisone 50mg daily with taper 5mg every 2 days CLAUDIA/LABA/ICS DAILY PEAK FLOW PFTS outpatient DR WREN
--- NOTE | 2017-05-29 12:28 | HP ---
Admitting History and Physical - Primary Care Physician PCP: Сергей Alamo - Admission Chief Complaint: SOB/RESP DISTRESS History of Present Illness: The patient is a 62 year old female with a significant PMH of COPD, asthma, CHF , HTN, hyperlipidemia, CAD, and 2 past MIs (2013, 2016 s/p stent placement) who presents to the emergency department with wheezing and increased shortness of breath beginning approximately 3 days ago. She reports associated chest pain only when she coughs. The patient reports using her pump this morning at about 1AM to no relief. The patient reports being last seen in the ED on 05/08 for productive cough and shortness of breath, for which she was given a 2-day course of Prednisone. She notes she is frequently in the hospital for her shortness of breath. The patient also notes that she is not fully compliant with her statin or Lasix medications. The patient denies headache and dizziness. Denies fever, chills, nausea, vomit, diarrhea and constipation. Denies dysuria, frequency, urgency and hematuria. 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 No: AFIB Pulmonary: Yes: Asthma, Bronchitis, COPD Gastrointestinal: No: Ascites Hepatobiliary: No: Cirrhosis Renal/: No: Renal Failure ...: No Heme/Onc: No: Anemia Infectious Disease: No: AIDS Psych: No: Addictions Musculoskeletal: No: Bursitis Rheumatology: No: Fibromyalgia Endocrine: No: Diabetes Mellitus - Past Surgical History Past Surgical History: Yes: , Appendectomy - Smoking History Smoking history: Never smoked Have you smoked in the past 12 months: No Aproximately how many cigarettes per day: 12 If you are a former smoker, when did you quit?: 20 years ago - Alcohol/Substance Use Hx Alcohol Use: No - Social History 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, 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 History of Recent Travel: No Home Medications - Allergies Allergies/Adverse Reactions: Allergies Allergy/AdvReac Type Severity Reaction Status Date / Time ciprofloxacin [From Cipro] Allergy Intermediate anaphylaxis Verified 05/08/17 13 :50 ciprofloxacin HCl Allergy Intermediate anaphylaxis Verified 05/08/17 13:50 [From Cipro] Iodinated Contrast- Oral and Allergy Intermediate anaphylaxis Verified 05/08/17 13:50 IV Dye lactose Allergy Intermediate Verified 05/08/17 13:50 - Home Medications Home Medications: Ambulatory Orders Clopidogrel Bisulfate [Clopidogrel] 75 mg PO DAILY 10/28/15 Valsartan [Diovan] 80 mg PO DAILY 10/28/15 Diltiazem Cd [Cardizem Cd -] 240 mg PO DAILY 03/26/16 Furosemide [Lasix -] 20 mg PO DAILY 03/26/16 Pravastatin Sodium 20 mg PO DAILY 03/26/16 Albuterol Sulfate Inhaler - [Ventolin Hfa Inhaler -] 1 - 2 inh PO Q4H #1 inhaler 05/08/17 Lorazepam [Ativan] 1 mg PO DAILY PRN 05/08/17 Family Disease History - Family Disease History Family Disease History: Diabetes: Mother Review of Systems - Review of Systems Constitutional: reports: Other Eyes: reports: No Symptoms HENT: reports: No Symptoms Neck: reports: No Symptoms Cardiovascular: reports: Shortness of Breath Respiratory: reports: SOB, SOB on Exertion, Wheezing Gastrointestinal: reports: No Symptoms Genitourinary: reports: No Symptoms Musculoskeletal: reports: No Symptoms Integumentary: reports: No Symptoms Neurological: reports: No Symptoms Endocrine: reports: No Symptoms Hematology/Lymphatic: reports: No Symptoms Psychiatric: reports: No Symptoms Physical Examination Vital Signs: Vital Signs Temperature 98.4 F 05/29/17 10:00 Pulse Rate 101 H 05/29/17 10:00 Respiratory Rate 18 05/29/17 10:00 Blood Pressure 129/71 05/29/17 10:00 O2 Sat by Pulse Oximetry (%) 95 05/29/17 09:00 Constitutional: Yes: Mild Distress Eyes: Yes: WNL HENT: Yes: WNL Neck: Yes: WNL Cardiovascular: Yes: WNL Respiratory: Yes: Cough, SOB, Wheezes Gastrointestinal: Yes: WNL Renal/: Yes: WNL Musculoskeletal: Yes: WNL Extremities: Yes: WNL Edema: No Peripheral Pulses WNL: Yes Integumentary: Yes: WNL Wound/Incision: Yes: Clean/Dry Neurological: Yes: WNL ...Motor Strength: WNL Psychiatric: Yes: WNL Labs: CBC, BMP 05/28/17 12:00 05/28/17 11:39 Problem List - Problems (1) COPD exacerbation Code(s): J44.1 - CHRONIC OBSTRUCTIVE PULMONARY DISEASE W (ACUTE) EXACERBATION (2) Elevated troponin Code(s): R74.8 - ABNORMAL LEVELS OF OTHER SERUM ENZYMES Assessment/Plan REPRODUCIBLE CHEST PAIN UPON COUGHING ARNIE COPD COSTOCHONDRITIS PREDNISONE ABX AUGMENTIN NEBS SYMBICORT
[2017-05-29] MEDS ORDERED: CEFTRIAXONE 2 GM in DEXTROSE 5%-WATER - 100 ML IVPB ONE (13:00)
[2017-05-29] MEDS ORDERED: methylPREDNISolone NA SUCC 125 MG/2 ML VIAL IVPUSH ONE (13:15)
[2017-05-29 13:30] LABS: TROPONIN I 0.14 ng/ml (0.00-0.05)
--- NOTE | 2017-05-29 14:08 | DS ---
Physical Examination Vital Signs: Vital Signs Temperature 98.4 F 05/29/17 10:00 Pulse Rate 101 H 05/29/17 10:00 Respiratory Rate 18 05/29/17 10:00 Blood Pressure 129/71 05/29/17 10:00 O2 Sat by Pulse Oximetry (%) 95 05/29/17 09:00 Findings/Remarks: DENIES CHEST PAIN. + COUGH, FEELING BETTER WITH NEB TREATMENTS, AND SOLUMEDROL IV Constitutional: Yes: No Distress Eyes: Yes: WNL HENT: Yes: WNL Neck: Yes: WNL Cardiovascular: Yes: WNL Respiratory: Yes: Diminished Gastrointestinal: Yes: WNL Renal/: Yes: WNL Musculoskeletal: Yes: WNL Extremities: Yes: WNL Edema: No Peripheral Pulses WNL: Yes Integumentary: Yes: WNL Wound/Incision: Yes: Clean/Dry Neurological: Yes: WNL ...Motor Strength: WNL Psychiatric: Yes: WNL Labs: CBC, BMP 05/28/17 12:00 05/28/17 11:39 Discharge Summary Reason For Visit: ELEVATED TROPONIN LEVEL, COPD Current Active Problems COPD exacerbation (Acute) Elevated troponin (Acute) Procedures: Principal: CXR/LABS Hospital Course: ADMITTED FOR ACUTE ON CHRONIC COPD, TREATED WITH NEBS, STEROIDS, ABX IV, FEELING BETTER TODAY. PATIENT HAS A HISTORY OF TROPONINS BEING POSITIVE AND HAD A STRESS TEST FOLLOWS WITH DR JESS CLARKE. Condition: Stable - Instructions Diet, Activity, Other Instructions: SEE DR CLARKE IN 3 DAYS FOR CARDIOLOGY F/U IF PAIN RETURNS OR DIZZINESS, SHORT OF BREATH RETURN TO ED Referrals: Сергей Alamo MD [Primary Care Provider] - Disposition: HOME - Home Medications Comprehensive Discharge Medication List: Ambulatory Orders Clopidogrel Bisulfate [Clopidogrel] 75 mg PO DAILY 10/28/15 Valsartan [Diovan] 80 mg PO DAILY 10/28/15 Diltiazem Cd [Cardizem Cd -] 240 mg PO DAILY 03/26/16 Furosemide [Lasix -] 20 mg PO DAILY 03/26/16 Pravastatin Sodium 20 mg PO DAILY 03/26/16 Albuterol Sulfate Inhaler - [Ventolin Hfa Inhaler -] 1 - 2 inh PO Q4H #1 inhaler 05/08/17 Lorazepam [Ativan] 1 mg PO DAILY PRN 05/08/17
[2017-05-29 14:37] VITALS: BP 125/65; PULSE 108; TEMP 98.2
--- NOTE | 2017-05-29 16:26 | EKG ---
Test Reason : Blood Pressure : / mmHG Vent. Rate : 082 BPM Atrial Rate : 082 BPM P-R Int : 212 ms QRS Dur : 084 ms QT Int : 422 ms P-R-T Axes : 070 -10 082 degrees QTc Int : 493 ms SINUS RHYTHM WITH 1ST DEGREE A-V BLOCK NONSPECIFIC ST AND T WAVE ABNORMALITY PROLONGED QT ABNORMAL ECG WHEN COMPARED WITH ECG OF 29-OCT-2015 10:08, [place] INTERVAL HAS INCREASED CRITERIA FOR INFERIOR INFARCT ARE NO LONGER PRESENT Confirmed by SATYA MCELROY MD ([id number]) on 05/29/2017 4:26:07 PM Referred By: Confirmed By:SATYA MCELROY MD
[2017-05-29] MEDS ORDERED: AMOX TR/POT CLAV 875MG/125MG TABLETS (FP) PO SCH (17:30)
[2017-05-30] MEDS ORDERED: predniSONE 20 MG TABLET (UD) PO SCH (10:00)
== END 2017-05-29 17:24 | disposition home or self-care (01) ==
LOC: JER 09:44 → JERBED 15:09 → J4S 18:55
PROVIDERS: ADMIT Family Medicine; ATTEND Family Medicine
PROC: 3E03329 Introduction of Other Anti-infective into Peripheral Vein, Percutaneous Approach (ICD-10-PCS; principal; 2017-05-28)
PROC: 3E033NZ Introduction of Analgesics, Hypnotics, Sedatives into Peripheral Vein, Percutaneous Approach (ICD-10-PCS; 2017-05-28)
PROC: 3E033GC Introduction of Other Therapeutic Substance into Peripheral Vein, Percutaneous Approach (ICD-10-PCS; 2017-05-28)
PROC: 3E0F7GC Introduction of Other Therapeutic Substance into Respiratory Tract, Via Natural or Artificial Opening (ICD-10-PCS; 2017-05-28)
PROC: 3E0F7GC Introduction of Other Therapeutic Substance into Respiratory Tract, Via Natural or Artificial Opening (ICD-10-PCS; 2017-05-28)
PROC: 3E0F7GC Introduction of Other Therapeutic Substance into Respiratory Tract, Via Natural or Artificial Opening (ICD-10-PCS; 2017-05-28)
DX: I10 Essential (primary) hypertension (principal); E78.5 Hyperlipidemia, unspecified; I25.10 Atherosclerotic heart disease of native coronary artery without angina pectoris; I25.2 Old myocardial infarction; I50.9 Heart failure, unspecified; Z95.5 Presence of coronary angioplasty implant and graft; Z98.84 Bariatric surgery status; Z88.8 Allergy status to other drugs, medicaments and biological substances; Z91.041 Radiographic dye allergy status; Z91.011 Allergy to milk products
CPT/HCPCS: 36415; 71010-TC; 80053; 80061; 81003; 81015; 82550; 82553; 83036; 83721; 83735; 83880; 84100; 84484; 85025; 85610; 85730; 87086; 87804; 93005; 93010; 94640; 99285-25; G0378; J1644

== ENCOUNTER 2017-06-04 05:07 | Observation (INO) | payer OTHER ==
[2017-06-04] MEDS ORDERED: ALBUTEROL SO4 2.5/IPRATROPIUM 0.5 INH SOL 3 ML VIAL.NEB. NEB STA ×2 (05:43→06:41)
[2017-06-04] MEDS ORDERED: methylPREDNISolone NA SUCC 125 MG/2 ML VIAL IVPB ONE (05:43)
--- NOTE | 2017-06-04 05:43 | PDOC ---
History of Present Illness - General History Source: Patient Exam Limitations: No Limitations - History of Present Illness Initial Comments: 06/04/17 05:57 The patient is a 62-year-old female with a significant past medical history of COPD, asthma, HTN, HLD, CAD, 2 past MIs (2013, 2016 s/p stent placement), and presents to the emergency department with wheezing and shortness of breath since this afternoon. She reports she has lost her albuterol nebulizer recently. She states she was gasping this afternoon and used her inhaler twice with temporary relief. She also notes associated runny nose, productive cough, and congestion. Patient reports she was in this ED 1 week ago for the same complaints, and frequently presents here for shortness of breath. She has been taking prednisone and the antibiotic as prescribed from the last visit. The patient denies chest pain, headache and dizziness. The patient denies fever , chills, nausea, vomit, diarrhea and constipation. The patient denies dysuria, frequency, urgency and hematuria. 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 Solano <Bonnie Pastrana - Last Filed: 06/04/17 05:57> - General History Source: Patient <Karl Newman - Last Filed: 06/08/17 19:32> - General Chief Complaint: Asthma Stated Complaint: ASTHMA, DIFFICULTY BREATHING Time Seen by Provider: 06/04/17 05:21 Past History <Bonnie Pastrana - Last Filed: 06/04/17 05:57> - Past Medical History Anemia: No Asthma: Yes Cancer: No Cardiac Disorders: Yes (ID 2013) CVA: No COPD: Yes CHF: No Dementia: No Diabetes: No GI Disorders: No Disorders: No HTN: Yes Hypercholesterolemia: Yes Liver Disease: No Seizures: No Thyroid Disease: No - Surgical History Abdominal Surgery: Yes (Gastric bypass-SLEEVE) Appendectomy: Yes Cardiac Surgery: Yes (CARDIAC STENTS) Cholecystectomy: No Lung Surgery: No Neurologic Surgery: No Orthopedic Surgery: No - Immunization History Immunization Up to Date: No - Suicide/Smoking/Psychosocial Hx Smoking Status: No Smoking History: Never smoked Have you smoked in the past 12 months: No Number of Cigarettes Smoked Daily: 12 If you are a former smoker, when did you quit?: 20 years ago Information on smoking cessation initiated: No Hx Alcohol Use: No Drug/Substance Use Hx: No Substance Use Type: None Hx Substance Use Treatment: No <Karl Newman - Last Filed: 06/08/17 19:32> - Past Medical History Allergies/Adverse Reactions: Allergies Allergy/AdvReac Type Severity Reaction Status Date / Time ciprofloxacin [From Cipro] Allergy Intermediate anaphylaxis Verified 06/04/17 05 :19 ciprofloxacin HCl Allergy Intermediate anaphylaxis Verified 06/04/17 05:19 [From Cipro] Iodinated Contrast- Oral and Allergy Intermediate anaphylaxis Verified 06/04/17 05:19 IV Dye lactose Allergy Intermediate Verified 06/04/17 05:19 Home Medications: Ambulatory Orders Clopidogrel Bisulfate [Clopidogrel] 75 mg PO DAILY 10/28/15 Valsartan [Diovan] 80 mg PO DAILY 10/28/15 Diltiazem Cd [Cardizem Cd -] 240 mg PO DAILY 03/26/16 Furosemide [Lasix -] 20 mg PO DAILY 03/26/16 Pravastatin Sodium 20 mg PO DAILY 03/26/16 Albuterol Sulfate Inhaler - [Ventolin HFA Inhaler -] 1 - 2 inh PO Q4H #1 inhaler 05/08/17 Lorazepam [Ativan] 1 mg PO DAILY PRN 05/08/17 Acetaminophen [Tylenol .Regular Strength -] 650 mg PO Q6H PRN tablet 05/29/17 Albuterol 2.5/Ipratropium 0.5 [Duoneb -] 1 amp NEB QIDR amp 05/29/17 Albuterol 2.5/Ipratropium 0.5 [Duoneb -] 1 neb NEB Q4H PRN #180 vial 06/05/17 Nebulizer Accessories [Reusable Nebulizer Kit] 1 each MC Q4H PRN #1 kit Nebulizer and Compressor [Home Nebulizer Plus Sidestream] 1 each MC Q4H PRN #1 each 06/05/17 Budesonide [Pulmicort 0.25 mg Nebulizer -] 1 neb NEB BID #60 vial 06/08/17 Budesonide/Formeterol Fumarate [SYMBICORT 160/4.5mcg -] 2 puff IH BID inhaler 06/08/17 Prednisone [Deltasone -] 10 mg PO DAILY #35 tablet 06/08/17 Review of Systems - Review of Systems Able to Perform ROS?: Yes Comments:: 06/04/17 05:58 CONSTITUTIONAL: Absent: fever, chills, diaphoresis, generalized weakness, malaise, loss of appetite HEENT: Present: (+) rhinorrhea, (+) nasal congestion Absent: throat pain, throat swelling, difficulty swallowing, mouth swelling, ear pain, eye pain, visual changes CARDIOVASCULAR: Absent: chest pain, syncope, palpitations, irregular heart rate, lightheadedness , peripheral edema RESPIRATORY: Present: (+) cough, (+) shortness of breath, (+) wheezing Absent: dyspnea with exertion, orthopnea, stridor, hemoptysis GASTROINTESTINAL: Absent: abdominal pain, abdominal distension, nausea, vomiting, diarrhea, constipation, melena, hematochezia GENITOURINARY: Absent: dysuria, frequency, urgency, hesitancy, hematuria, flank pain, genital pain MUSCULOSKELETAL: Absent: myalgia, arthralgia, joint swelling SKIN: Absent: rash, itching, pallor HEMATOLOGIC/IMMUNOLOGIC: Absent: easy bleeding, easy bruising, lymphadenopathy, frequent infections ENDOCRINE: Absent: unexplained weight gain, unexplained weight loss, heat intolerance, cold intolerance NEUROLOGIC: Absent: headache, focal weakness or paresthesias, dizziness, unsteady gait, seizure, mental status changes, bladder or bowel incontinence PSYCHIATRIC: Absent: anxiety, depression, suicidal or homicidal ideation, hallucinations. <Bonnie Pastrana - Last Filed: 06/04/17 05:57> *Physical Exam - Vital Signs Last Vital Signs Temp Pulse Resp BP Pulse Ox 98.7 F 102 H 18 151/90 94 L 06/04/17 05:19 06/04/17 05:19 06/04/17 05:19 06/04/17 05:19 06/04/17 05:19 - Physical Exam Comments: 06/04/17 05:58 GENERAL: Well developed, well nourished. Awake and alert. No acute distress. HEENT: Normocephalic, atraumatic. PERRLA, EOMI. No conjunctival pallor. Sclera are non- icteric. Moist mucous membranes. Oropharynx is clear. (+) Nasal congestion. NECK: Supple. Full ROM. No JVD. Carotid pulses 2+ and symmetric, without bruits. No thyromegaly. No lymphadenopathy. CARDIOVASCULAR: Regular rate and rhythm. No murmurs, rubs, or gallops. Distal pulses are 2+ and symmetric. PULMONARY: (+) Wheezing on inspiration, (+) Decreased breath sounds with scattered wheezing on expiration. No rales or rhonchi. ABDOMINAL: Soft. Non-tender. Non-distended. No rebound or guarding. No organomegaly. Normoactive bowel sounds. MUSCULOSKELETAL Normal range of motion at all joints. No bony deformities or tenderness. No CVA tenderness. EXTREMITIES: No cyanosis. No clubbing. No edema. No calf tenderness. SKIN: Warm and dry. Normal capillary refill. No rashes. No jaundice. NEUROLOGICAL: Alert, awake, appropriate. Cranial nerves 2-12 intact. No deficits to light touch and temperature in face, upper extremities and lower extremities. No motor deficits in the in face, upper extremities and lower extremities. Normoreflexic in the upper and lower extremities. Normal speech. Toes are down- going bilaterally. Gait is normal without ataxia. PSYCHIATRIC: Cooperative. Good eye contact. Appropriate mood and affect. <Bonnie Pastrana - Last Filed: 06/04/17 05:57> - Vital Signs Last Vital Signs Temp Pulse Resp BP Pulse Ox 98.7 F 102 H 18 151/90 94 L 06/04/17 05:19 06/04/17 05:19 06/04/17 05:19 06/04/17 05:19 06/04/17 05:19 <Karl Newman - Last Filed: 06/08/17 19:32> Heart Score/ECG Review - ECG Impressions Comment:: 06/04/17 05:58 Poor data quality Normal sinus rhythm Nonspecific T wave abnormality Prolonged QT Abnormal ECG <Bonnie Pastrana - Last Filed: 06/04/17 05:57> ED Treatment Course - LABORATORY CBC & Chemistry Diagram: 06/08/17 10:05 06/08/17 10:05 <Karl Newman - Last Filed: 06/08/17 19:32> Medical Decision Making - Medical Decision Making 06/08/17 19:32 Dr. Newman: The scribe's documentation has been prepared under my direction and personally reviewed by me in its entirery. I confirm that the note above accurately reflects all work, treatment, procedures, and medical decision making performed by me. <Karl Newman - Last Filed: 06/08/17 19:32> *DC/Admit/Observation/Transfer - Attestations Scribe Attestion: 06/04/17 05:59 Documentation prepared by Bonnie Pastrana, acting as medical office secretary for Karl Newman MD/. <Bonnie Pastrana - Last Filed: 06/04/17 05:57> <Karl Newman - Last Filed: 06/08/17 19:32> Diagnosis at time of Disposition: COPD (chronic obstructive pulmonary disease) Qualifiers: COPD type: unspecified COPD Qualified Code(s): J44.9 - Chronic obstructive pulmonary disease, unspecified - Discharge Dispostion Disposition: HOME Condition at time of disposition: Stable
[2017-06-04] MEDS ORDERED: MAGNESIUM SULF 50% (8.12 MEQ/2 ML-1 GM VIAL) IVPB ONE (05:44)
[2017-06-04] MEDS ORDERED: MAGNESIUM SULF 50% (8.12 MEQ/2 ML-1 GM VIAL) ONE (05:53)
[2017-06-04] MEDS ORDERED: ALBUTEROL SO4 2.5/IPRATROPIUM 0.5 INH SOL 3 ML VIAL.NEB. NEB ONE ×2 (05:53→07:35)
[2017-06-04] MEDS ORDERED: methylPREDNISolone NA SUCC 125 MG/2 ML VIAL ONE (05:53)
[2017-06-04 06:21] LABS: HEMATOCRIT 36.7 % (32.4-45.2); HEMOGLOBIN 12.1 GM/dL (10.7-15.3); MCH 25.9 pg (25.7-33.7); MCHC 32.8 g/dl (32.0-36.0); MEAN CELL VOLUME 78.9 fl (80-96); MEAN PLT VOLUME 8.9 fl (7.5-11.1); PLATELET COUNT 341 K/MM3 (134-434); RBC 4.66 M/mm3 (3.60-5.2); RDW 19.2 % (11.6-15.6)
[2017-06-04 06:45] LABS: ALBUMIN 3.6 g/dl (3.4-5.0); ALK PHOS 65 U/L (45-117); ANION GAP 10 (8-16); BILIRUBIN,TOTAL 0.5 mg/dL (0.2-1.0); BLOOD UREA NITROGEN 19 mg/dL (7-18); CALCIUM 9.1 mg/dL (8.5-10.1); CHLORIDE 100 mmol/L (98-107); CO2 31 mmol/L (21-32); GLUCOSE,RANDOM 85 mg/dL (74-106); POTASSIUM 3.5 mmol/L (3.5-5.1); SGOT/AST 14 U/L (15-37); SGPT/ALT 31 U/L (12-78); SODIUM 141 mmol/L (136-145)
--- NOTE | 2017-06-04 09:21 | EKG ---
Test Reason : Blood Pressure : / mmHG Vent. Rate : 089 BPM Atrial Rate : 089 BPM P-R Int : 172 ms QRS Dur : 088 ms QT Int : 388 ms P-R-T Axes : 069 -20 091 degrees QTc Int : 472 ms POOR DATA QUALITY, INTERPRETATION MAY BE ADVERSELY AFFECTED NORMAL SINUS RHYTHM NONSPECIFIC T WAVE ABNORMALITY PROLONGED QT ABNORMAL ECG WHEN COMPARED WITH ECG OF 28-MAY-2017 12:34, [place] INTERVAL HAS DECREASED Confirmed by DUNG ADLER MD ([id number]) on 06/04/2017 9:21:10 AM Referred By: Confirmed By:DUNG ADLER MD
--- NOTE | 2017-06-04 09:38 | PDOC ---
*Physical Exam - Vital Signs Last Vital Signs Temp Pulse Resp BP Pulse Ox 98.6 F 100 H 16 154/69 98 06/04/17 07:30 06/04/17 07:30 06/04/17 07:30 06/04/17 07:30 06/04/17 07:30 ED Treatment Course - LABORATORY CBC & Chemistry Diagram: 06/04/17 05:52 06/04/17 05:52 - ADDITIONAL ORDERS Additional order review: Laboratory Results 06/04/17 05:52 Sodium 141 Potassium 3.5 Chloride 100 Carbon Dioxide 31 Anion Gap 10 BUN 19 H D Creatinine 1.0 Creat Clearance w eGFR 56.37 Random Glucose 85 Calcium 9.1 Total Bilirubin 0.5 D AST 14 L ALT 31 D Alkaline Phosphatase 65 Total Protein 7.0 Albumin 3.6 06/04/17 05:52 RBC 4.66 MCV 78.9 L MCHC 32.8 RDW 19.2 H MPV 8.9 Neutrophils % No Result Required. Lymphocytes % No Result Required. - Medications Given in the ED: ED Medications Discontinued Medications Generic Name Dose Route Start Last Admin Trade Name Jimiq PRN Reason Stop Dose Admin Albuterol/Ipratropium 1 amp 06/04/17 05:43 06/04/17 06:10 Duoneb - NEB 06/04/17 05:44 1 amp ONCE STA Administration Albuterol/Ipratropium 1 amp 06/04/17 06:41 06/04/17 07:29 Duoneb - NEB 06/04/17 06:42 1 amp ONCE STA Administration Magnesium Sulfate 2 gm 06/04/17 05:44 06/04/17 06:10 Magnesium Sulfate IVPB 06/04/17 05:45 2 gm ONCE ONE Administration Methylprednisolone Sodium Succinate 125 mg 06/04/17 05:43 06/04/17 06:10 Solu-Medrol - IVPB 06/04/17 05:44 125 mg ONCE ONE Administration Medical Decision Making - Medical Decision Making 06/04/17 17:04 Fever no chills recently on steroids I believe her white count to be secondary to recent steroid use and not secondary to an underlying infection. Her chest x-ray did not demonstrate any acute pathology Her history and examination is consistent with COPD exacerbation not responding to home treatment. Will observe overnight for IV steroids and continuous nebulized treatments and further management. *DC/Admit/Observation/Transfer Diagnosis at time of Disposition: COPD (chronic obstructive pulmonary disease) Qualifiers: COPD type: unspecified COPD Qualified Code(s): J44.9 - Chronic obstructive pulmonary disease, unspecified - Discharge Dispostion Admit: Yes - Referrals - Patient Instructions - Post Discharge Activity
[2017-06-04 09:52] LABS: ANISOCYTOSIS 2+; MACROCYTOSIS 2+; PLATELET ESTIMATE NORMAL
--- NOTE | 2017-06-04 14:57 | HP ---
Admitting History and Physical - Primary Care Physician PCP: Сергей Alamo - Admission Chief Complaint: SOB, wheezing History of Present Illness: he patient is a 62-year-old female with a significant past medical history of COPD, asthma, HTN, HLD, CAD, 2 past MIs (2013, 2016 s/p stent placement), and presents to the emergency department with wheezing and shortness of breath since this afternoon. She reports she has lost her albuterol nebulizer recently. She states she was gasping this afternoon and used her inhaler twice with temporary relief. She also notes associated runny nose, productive cough, and congestion. Patient reports she was in this ED 1 week ago for the same complaints, and frequently presents here for shortness of breath. She has been taking prednisone and the antibiotic as prescribed from the last visit. The patient denies chest pain, headache and dizziness. The patient denies fever , chills, nausea, vomit, diarrhea and constipation. The patient denies dysuria, frequency, urgency and hematuria. History Source: Patient Limitations to Obtaining History: No Limitations - Past Medical History Cardiovascular: Yes: CAD, HTN, ID (s/p stent), Other. 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 History of Recent Travel: No Home Medications - Allergies Allergies/Adverse Reactions: Allergies Allergy/AdvReac Type Severity Reaction Status Date / Time ciprofloxacin [From Cipro] Allergy Intermediate anaphylaxis Verified 06/04/17 05 :19 ciprofloxacin HCl Allergy Intermediate anaphylaxis Verified 06/04/17 05:19 [From Cipro] Iodinated Contrast- Oral and Allergy Intermediate anaphylaxis Verified 06/04/17 05:19 IV Dye lactose Allergy Intermediate Verified 06/04/17 05:19 - Home Medications Home Medications: Ambulatory Orders Clopidogrel Bisulfate [Clopidogrel] 75 mg PO DAILY 10/28/15 Valsartan [Diovan] 80 mg PO DAILY 10/28/15 Diltiazem Cd [Cardizem Cd -] 240 mg PO DAILY 03/26/16 Furosemide [Lasix -] 20 mg PO DAILY 03/26/16 Pravastatin Sodium 20 mg PO DAILY 03/26/16 Albuterol Sulfate Inhaler - [Ventolin HFA Inhaler -] 1 - 2 inh PO Q4H #1 inhaler 05/08/17 Lorazepam [Ativan] 1 mg PO DAILY PRN 05/08/17 Acetaminophen [Tylenol .Regular Strength -] 650 mg PO Q6H PRN tablet 05/29/17 Albuterol 0.083% Nebulizer Janell [Ventolin 0.083% Nebulizer Soln -] 1 amp NEB Q1H PRN amp 05/29/17 Albuterol 2.5/Ipratropium 0.5 [Duoneb -] 1 amp NEB QIDR amp 05/29/17 Amox-Tr/K Cl [Augmentin 500-125mg Tablet -] 1 each PO BID #14 tablet 05/29/17 Prednisone [Deltasone -] 20 mg PO DAILY #45 tablet 05/29/17 Prednisone [Deltasone -] 50 mg PO DAILY #30 tablet 05/29/17 Family Disease History - Family Disease History Family Disease History: Diabetes: Mother Review of Systems - Review of Systems Constitutional: reports: No Symptoms Eyes: reports: No Symptoms HENT: reports: No Symptoms Neck: reports: No Symptoms Cardiovascular: reports: No Symptoms Respiratory: reports: Cough, SOB, Wheezing Gastrointestinal: reports: No Symptoms Genitourinary: reports: No Symptoms Breasts: reports: No Symptoms Reported Musculoskeletal: reports: No Symptoms Integumentary: reports: No Symptoms Neurological: reports: No Symptoms Endocrine: reports: No Symptoms Hematology/Lymphatic: reports: No Symptoms Psychiatric: reports: No Symptoms Physical Examination Vital Signs: Vital Signs Temperature 98.4 F 06/04/17 14:37 Pulse Rate 95 H 06/04/17 14:37 Respiratory Rate 16 06/04/17 14:37 Blood Pressure 124/76 06/04/17 14:37 O2 Sat by Pulse Oximetry (%) 98 06/04/17 14:37 Constitutional: Yes: Well Nourished, No Distress, Calm Cardiovascular: Yes: Regular Rate and Rhythm Respiratory: Yes: Wheezes (BL lung) Gastrointestinal: Yes: Normal Bowel Sounds Musculoskeletal: Yes: WNL Extremities: Yes: WNL Edema: No Peripheral Pulses WNL: Yes Neurological: Yes: Alert, Oriented Psychiatric: Yes: Alert, Oriented Labs: CBC, BMP 06/04/17 05:52 06/04/17 05:52 Imaging - Results Chest X-ray: Report Reviewed Problem List - Problems (1) Asthmatic bronchitis with acute exacerbation Assessment/Plan: -pulmonary consult -Neb Tx -IV steroids -nasal o2 Code(s): J45.901 - UNSPECIFIED ASTHMA WITH (ACUTE) EXACERBATION (2) COPD (chronic obstructive pulmonary disease) Code(s): J44.9 - CHRONIC OBSTRUCTIVE PULMONARY DISEASE, UNSPECIFIED Qualifiers: COPD type: unspecified COPD Qualified Code(s): J44.9 - Chronic obstructive pulmonary disease, unspecified (3) Hypertension Code(s): I10 - ESSENTIAL (PRIMARY) HYPERTENSION Assessment/Plan see problem list
[2017-06-04] MEDS ORDERED: ALBUTEROL SO4 2.5/IPRATROPIUM 0.5 INH SOL 3 ML VIAL.NEB. NEB SCH (15:00)
--- NOTE | 2017-06-04 15:48 | PN ---
Progress Note (short form) - Note Progress Note: PULMONARY CONSULTATION DICTATED 06/04/17 IMP ASTHMA/COPD EXACERBATION ASHD S/P MIX2,S/P STENT HTN HLD PLAN IV STEROIDS INHALED BRONCHODILATORS O2 MONITOR PEAK FLOW DR WREN Problem List - Problems (1) Asthma-COPD overlap syndrome Code(s): J44.9 - CHRONIC OBSTRUCTIVE PULMONARY DISEASE, UNSPECIFIED (2) COPD (chronic obstructive pulmonary disease) Code(s): J44.9 - CHRONIC OBSTRUCTIVE PULMONARY DISEASE, UNSPECIFIED Qualifiers: COPD type: unspecified COPD Qualified Code(s): J44.9 - Chronic obstructive pulmonary disease, unspecified (3) Asthma Code(s): J45.909 - UNSPECIFIED ASTHMA, UNCOMPLICATED (4) Cough Code(s): R05 - COUGH (5) Exacerbation of asthma Code(s): J45.901 - UNSPECIFIED ASTHMA WITH (ACUTE) EXACERBATION (6) H/O non-ST elevation myocardial infarction (NSTEMI) Code(s): I25.2 - OLD MYOCARDIAL INFARCTION (7) History of percutaneous coronary intervention Code(s): Z98.89 - OTHER SPECIFIED POSTPROCEDURAL STATES * DO NOT USE * (8) Hypercholesterolemia Code(s): E78.0 - PURE HYPERCHOLESTEROLEMIA * DO NOT USE * (9) Hypertension Code(s): I10 - ESSENTIAL (PRIMARY) HYPERTENSION
[2017-06-04] MEDS ORDERED: ALBUTEROL SO4 0.083% IH SOL 2.5 MG/3 ML VIAL.NEB. NEB PRN (15:50)
[2017-06-04 16:09] VITALS: BMI 41.5
--- NOTE | 2017-06-04 16:35 | CONS ---
DATE OF CONSULTATION: 06/04/2017 PULMONARY CONSULTATION REFERRING PHYSICIAN: Сергей Alamo M.D. HISTORY OF PRESENT ILLNESS: The patient is a 62-year-old black female known to me from previous hospitalization with past medical history of asthma, COPD, hypertension, hyperlipidemia, ASHD status post 2 MIs in 2013 and 2017, status post stents, presented to [facility] early today with complaint of increasing shortness of breath, cough, and bronchospasm. Patient states for the past day or so she started to note increasing shortness of breath. She started taking inhaled bronchodilators which did not offer much improvement. She denies any fevers, chills, although complains of some runny nose and cough productive of clear sputum and chest congestion. Apparently she presented to the emergency room with an emergency 1 were ago with similar complaint. She apparently has been taking prednisone and antibiotics since the last ER visit. Despite these measures, the symptoms increased in severity. In the ER she was treated with inhaled bronchodilators and steroids with some clinical improvement. PAST MEDICAL HISTORY: Again includes asthma/COPD, hypertension, hyperlipidemia, ASHD status post [place] x2, status post stent. SOCIAL HISTORY: No occupational exposures, nonsmoker. History of smoking years ago, quit 20 years ago. No occupational exposure. REVIEW OF SYSTEMS: Positive shortness of breath. Positive cough. Positive wheezing. No chest pain. No palpitation. No nausea. No vomiting. Positive cough. CURRENT MEDICATIONS: Include Solu-Medrol 40 b.i.d., heparin and DuoNeb. PHYSICAL EXAMINATION: General: The patient is a well-developed, well-nourished black female awake, alert, in no acute distress. Vital signs: She is currently afebrile. Blood pressure 124/76, respiratory rate 16, and O2 saturation is 98% on room air. HEENT: Head is normocephalic, atraumatic. Neck: Supple. Heart: Regular. S1, S2. Chest: A few scattered bilateral wheezes. Abdomen: Soft. Bowel sounds positive. Extremities: No cyanosis, edema. LABORATORY: WBC is 25, hemoglobin 12.1, hematocrit 36.7, platelet count of 341,000. BUN 19, creatinine 1.0. Chest x-ray, no infiltrates, no effusions. IMPRESSION: 1. Chronic persistent asthma, acute exacerbation. 2. Atherosclerotic heart disease status post myocardial infarction, status post stent. 3. Hypertension. 4. Hyperlipidemia. PLAN: IV steroids. Inhaled bronchodilators. Supplemental O2. Monitor peak flow. Start Symbicort 160/4.5 two puffs q.12 hours. LILIAN WRNE M.D. FRANDY/[id number]
[2017-06-04] MEDS: TIOTROPIUM BROMIDE 18 MCG/INH (DEVICE W/ 5 CAPSULES) IH SCH (18:55)
[2017-06-04] MEDS ORDERED: PT OWN MED DRAWER 7, Y5N ONE (19:01)
[2017-06-04] MEDS: ATORVASTATIN CA 10 MG TABLET (FP) PO SCH (21:51)
[2017-06-04] MEDS: BUDESONIDE/FORMETEROL FUMARATE 160/4.5 mcg INHALER IH SCH ×2 (21:51→21:55)
[2017-06-04] MEDS: HEPARIN NA (PORCINE) 5,000 UNITS/ML 1ML VIAL SQ SCH (21:51)
[2017-06-04] MEDS: methylPREDNISolone NA SUCC 40 MG/1 ML VIAL IVPUSH SCH (21:51)
[2017-06-04] MEDS ORDERED: methylPREDNISolone NA SUCC 40 MG/1 ML VIAL IVPUSH SCH (22:00)
[2017-06-04] MEDS: ACETAMINOPHEN 325 MG TABLET (FP) PO PRN (23:18)
[2017-06-04] MEDS: ALBUTEROL SO4 2.5/IPRATROPIUM 0.5 INH SOL 3 ML VIAL.NEB. NEB SCH (23:40)
[2017-06-05] MEDS: methylPREDNISolone NA SUCC 40 MG/1 ML VIAL IVPUSH SCH ×4 (02:39→20:18)
[2017-06-05] MEDS: LORazepam 1 MG TABLET PO PRN (02:39)
[2017-06-05] MEDS: ALBUTEROL SO4 2.5/IPRATROPIUM 0.5 INH SOL 3 ML VIAL.NEB. NEB SCH ×2 (06:28→23:12)
--- NOTE | 2017-06-05 09:35 | PN ---
Progress Note (short form) - Note Progress Note: PULMONARY VSS/AFEBRILE SUBJECTIVE IMPROVEMENT ANICTERIC MINIMAL SCATTERED EXP B/L WHEEZE S1S2 ABD SOFT NONTENDER NO EDEMA LABS/MEDS/NOTES/IMAGES/MICRO REVIEWED WBC 25K TROP .15 IMP ASTHMA/COPD EXACERBATION ASHD S/P MIX2,S/P STENT HTN HLD PLAN IV STEROIDS INHALED BRONCHODILATORS O2 MONITOR PEAK FLOW SUGGEST CARDIO CONSULT Efren RENTERIA MD
[2017-06-05] MEDS ORDERED: PT OWN MED DRAWER 7, Y5N ONE ×3 (09:48→22:38)
[2017-06-05] MEDS: FUROSEMIDE 20 MG TABLET (FP) PO SCH (09:49)
[2017-06-05] MEDS: CLOPIDOGREL BISULFATE 75 MG TABLET (FP) PO SCH (09:49)
[2017-06-05] MEDS: HEPARIN NA (PORCINE) 5,000 UNITS/ML 1ML VIAL SQ SCH ×3 (09:50→21:46)
[2017-06-05] MEDS: VALSARTAN 160 MG TABLET (UD) PO SCH (09:50)
[2017-06-05] MEDS: BUDESONIDE/FORMETEROL FUMARATE 160/4.5 mcg INHALER IH SCH ×2 (09:51→21:50)
[2017-06-05] MEDS: TIOTROPIUM BROMIDE 18 MCG/INH (DEVICE W/ 5 CAPSULES) IH SCH (09:51)
[2017-06-05] MEDS: BENZOCAINE/MENTH/CETYLPYRD CL 1 EACH LOZENGE MM PRN ×2 (15:41→21:47)
--- NOTE | 2017-06-05 17:03 | PN ---
Progress Note, Physician Chief Complaint: Asthmatic Bronchitis History of Present Illness: NAD, feeling much better seen by Pulmonary elevated troponin likely secondary to back to back albuterol administration, had elevated troponin in the past, no EKG changes, asymptomatic. Would still get cardiology to r/o any acute pathology - Current Medication List Current Medications: Active Medications Acetaminophen (Tylenol -) 650 mg PO Q6H PRN PRN Reason: FEVER OR PAIN Last Admin: 06/04/17 23:18 Dose: 650 mg Albuterol Sulfate (Ventolin 0.083% Nebulizer Soln -) 1 amp NEB Q4H PRN PRN Reason: SHORT OF BREATH/WHEEZING Last Admin: 06/05/17 10:25 Dose: 1 amp Albuterol/Ipratropium (Duoneb -) 1 amp NEB QIDR [facility] Last Admin: 06/05/17 06:28 Dose: 1 amp Atorvastatin Calcium (Lipitor -) 10 mg PO HS [facility] Last Admin: 06/04/17 21:51 Dose: Not Given Benzocaine/Menthol (Cepacol Lozenge -) 1 each MM Q6H PRN PRN Reason: SORE THROAT Last Admin: 06/05/17 15:41 Dose: 1 each Budesonide/Formoterol Fumarate (Symbicort 160/4.5mcg -) 2 puff IH BID [facility] Last Admin: 06/05/17 09:51 Dose: Not Given Clopidogrel Bisulfate (Plavix -) 75 mg PO DAILY [facility] Last Admin: 06/05/17 09:49 Dose: 75 mg Diltiazem HCl (Cardizem Cd -) 240 mg PO DAILY [facility] Last Admin: 06/05/17 09:49 Dose: 240 mg Furosemide (Lasix -) 20 mg PO DAILY [facility] Last Admin: 06/05/17 09:49 Dose: 20 mg Heparin Sodium (Porcine) (Heparin -) 5,000 unit SQ BID [facility] Last Admin: 06/05/17 09:56 Dose: Not Given Lorazepam (Ativan -) 1 mg PO DAILY PRN PRN Reason: ANXIETY Last Admin: 06/05/17 02:39 Dose: 1 mg Methylprednisolone Sodium Succinate (Solu-Medrol -) 40 mg IVPUSH Q6H-IV [facility]ONNY Last Admin: 06/05/17 15:06 Dose: 40 mg Tiotropium [place] (Spiriva -) 1 puff IH DAILY [facility] Last Admin: 06/05/17 09:51 Dose: 1 puff Valsartan (Diovan -) 80 mg PO DAILY [facility] Last Admin: 06/05/17 09:50 Dose: 80 mg - Objective Vital Signs: Vital Signs Temperature 98.2 F 06/05/17 14:00 Pulse Rate 94 H 06/05/17 14:00 Respiratory Rate 20 06/05/17 14:00 Blood Pressure 138/78 06/05/17 14:00 O2 Sat by Pulse Oximetry (%) 96 06/05/17 10:12 Constitutional: Yes: Well Nourished, No Distress, Calm Cardiovascular: Yes: Regular Rate and Rhythm Respiratory: Yes: Cough, Wheezes (Diffuse) Gastrointestinal: Yes: WNL Musculoskeletal: Yes: WNL Extremities: Yes: WNL Edema: No Peripheral Pulses WNL: Yes Neurological: Yes: Alert, Oriented Psychiatric: Yes: Alert, Oriented Labs: CBC, BMP 06/04/17 05:52 06/04/17 05:52 Problem List - Problems (1) Asthmatic bronchitis with acute exacerbation Assessment/Plan: -pulmonary consult -Neb Tx -IV steroids -nasal o2 Code(s): J45.901 - UNSPECIFIED ASTHMA WITH (ACUTE) EXACERBATION (2) COPD (chronic obstructive pulmonary disease) Code(s): J44.9 - CHRONIC OBSTRUCTIVE PULMONARY DISEASE, UNSPECIFIED Qualifiers: COPD type: unspecified COPD Qualified Code(s): J44.9 - Chronic obstructive pulmonary disease, unspecified (3) Hypertension Code(s): I10 - ESSENTIAL (PRIMARY) HYPERTENSION (4) Elevated troponin Assessment/Plan: -likely secondary to back to back albuterol nebs, previous admission was elevated as well -no changes in EKG -asymptomatic -cardiology eval Code(s): R74.8 - ABNORMAL LEVELS OF OTHER SERUM ENZYMES Assessment/Plan see problem list d/c home tomorrow if cleared by Pulmonary Nebulizer compressor and kit sent to her pharmacy, will check coverage
[2017-06-05] MEDS: ATORVASTATIN CA 10 MG TABLET (FP) PO SCH (21:47)
[2017-06-06] MEDS: methylPREDNISolone NA SUCC 40 MG/1 ML VIAL IVPUSH SCH ×4 (03:08→20:24)
[2017-06-06] MEDS: LORazepam 1 MG TABLET PO PRN (03:13)
[2017-06-06] MEDS: ALBUTEROL SO4 2.5/IPRATROPIUM 0.5 INH SOL 3 ML VIAL.NEB. NEB SCH ×4 (06:23→17:30)
[2017-06-06] MEDS ORDERED: INSULIN (NOVOLOG) ASPART 100 UNITS/ML 10ML VIAL ONE (06:59)
[2017-06-06] MEDS ORDERED: PT OWN MED DRAWER 7, Y5N ONE ×2 (10:20→21:49)
[2017-06-06] MEDS: VALSARTAN 160 MG TABLET (UD) PO SCH (10:26)
[2017-06-06] MEDS: FUROSEMIDE 20 MG TABLET (FP) PO SCH (10:27)
[2017-06-06] MEDS: HEPARIN NA (PORCINE) 5,000 UNITS/ML 1ML VIAL SQ SCH ×2 (10:27→21:24)
[2017-06-06] MEDS: CLOPIDOGREL BISULFATE 75 MG TABLET (FP) PO SCH (10:27)
[2017-06-06] MEDS: TIOTROPIUM BROMIDE 18 MCG/INH (DEVICE W/ 5 CAPSULES) IH SCH (10:27)
[2017-06-06] MEDS: BUDESONIDE/FORMETEROL FUMARATE 160/4.5 mcg INHALER IH SCH ×2 (10:28→21:26)
--- NOTE | 2017-06-06 11:28 | PN ---
Progress Note (short form) - Note Progress Note: PULMONARY VSS/AFEBRILE SUBJECTIVE IMPROVEMENT REMAINS WITH HEAVY PERFUME AND REBOLLEDO IN ROOM ANICTERIC MINIMAL SCATTERED EXP B/L WHEEZE S1S2 ABD SOFT NONTENDER NO EDEMA LABS/MEDS/NOTES/IMAGES/MICRO REVIEWED WBC 25K TROP .15 IMP ASTHMA/COPD EXACERBATION ASHD S/P MIX2,S/P STENT HTN HLD PLAN IV STEROIDS TO CONTINUE INHALED BRONCHODILATORS O2 CYCLE TROPS MONITOR PEAK FLOW SUGGEST CARDIO CONSULT REFRAIN FROM USING PERFUME Efren RENTERIA MD
[2017-06-06] MEDS: BUDESONIDE 0.25 MG/2ML INH SUSP VIAL NEB SCH ×2 (14:05→22:00)
--- NOTE | 2017-06-06 14:25 | PN ---
Progress Note (short form) - Note Progress Note: I was asked to see this patient for a cardiology consultation. She is a patient of Dr. Piter Solano (Director Building) who follows her closely. The patient did not want to be seen by another cardiology team. I spoke with Dr. Solano who will ask his colleague to see the patient for a cardiology consultation.
[2017-06-06] MEDS: BENZOCAINE/MENTH/CETYLPYRD CL 1 EACH LOZENGE MM PRN (15:10)
[2017-06-06] MEDS ORDERED: BENZOCAINE/MENTH/CETYLPYRD CL 1 EACH LOZENGE MM PRN (18:08)
--- NOTE | 2017-06-06 18:24 | PN ---
Progress Note, Physician Chief Complaint: Asthmatic Bronchitis History of Present Illness: NAD, feeling much better seen by Pulmonary elevated troponin likely secondary to back to back albuterol administration, had elevated troponin in the past, no EKG changes, asymptomatic. did not want to be seen by Dr Anderson-Cardiology Dr Solano to see the patient in AM - Current Medication List Current Medications: Active Medications Acetaminophen (Tylenol -) 650 mg PO Q6H PRN PRN Reason: FEVER OR PAIN Last Admin: 06/04/17 23:18 Dose: 650 mg Albuterol Sulfate (Ventolin 0.083% Nebulizer Soln -) 1 amp NEB Q4H PRN PRN Reason: SHORT OF BREATH/WHEEZING Last Admin: 06/05/17 10:25 Dose: 1 amp Albuterol/Ipratropium (Duoneb -) 1 amp NEB QIDR [facility] Last Admin: 06/06/17 11:30 Dose: 1 amp Atorvastatin Calcium (Lipitor -) 10 mg PO HS [facility] Last Admin: 06/05/17 21:47 Dose: 10 mg Benzocaine/Menthol (Cepacol Lozenge -) 1 each MM Q4H PRN PRN Reason: SORE THROAT Budesonide (Pulmicort 0.25 Mg Nebulizer -) 1 amp NEB BID [facility] Last Admin: 06/06/17 14:05 Dose: 1 amp Budesonide/Formoterol Fumarate (Symbicort 160/4.5mcg -) 2 puff IH BID [facility] Last Admin: 06/06/17 10:28 Dose: Not Given Clopidogrel Bisulfate (Plavix -) 75 mg PO DAILY [facility] Last Admin: 06/06/17 10:27 Dose: 75 mg Diltiazem HCl (Cardizem Cd -) 240 mg PO DAILY [facility] Last Admin: 06/06/17 10:26 Dose: 240 mg Furosemide (Lasix -) 20 mg PO DAILY [facility] Last Admin: 06/06/17 10:27 Dose: 20 mg Heparin Sodium (Porcine) (Heparin -) 5,000 unit SQ BID [facility] Last Admin: 06/06/17 10:27 Dose: Not Given Lorazepam (Ativan -) 1 mg PO DAILY PRN PRN Reason: ANXIETY Last Admin: 06/06/17 03:13 Dose: 1 mg Methylprednisolone Sodium Succinate (Solu-Medrol -) 40 mg IVPUSH Q6H-IV [facility] Last Admin: 12/31/17 15:09 Dose: 40 mg Tiotropium [place] (Spiriva -) 1 puff IH DAILY [facility] Last Admin: 06/06/17 10:27 Dose: 1 puff Valsartan (Diovan -) 80 mg PO DAILY [facility] Last Admin: 06/06/17 10:26 Dose: 80 mg - Objective Vital Signs: Vital Signs Temperature 98.4 F 06/06/17 17:26 Pulse Rate 95 H 06/06/17 17:26 Respiratory Rate 18 06/06/17 17:26 Blood Pressure 154/86 06/06/17 17:26 O2 Sat by Pulse Oximetry (%) 97 06/06/17 18:00 Constitutional: Yes: Well Nourished, No Distress, Calm Cardiovascular: Yes: Regular Rate and Rhythm Respiratory: Yes: Regular Gastrointestinal: Yes: Normal Bowel Sounds Musculoskeletal: Yes: WNL Extremities: Yes: WNL Edema: No Peripheral Pulses WNL: Yes Neurological: Yes: Alert, Oriented Psychiatric: Yes: Alert, Oriented Labs: CBC, BMP 06/04/17 05:52 06/04/17 05:52 Problem List - Problems (1) Asthmatic bronchitis with acute exacerbation Assessment/Plan: -pulmonary consult -Neb Tx -IV steroids -nasal o2 -Encouraged to avoid using any perfumes, has Fresh catherine delivered from her - encouraged to avoid exposure -Has been refusing Symbicort, only wants to use Spiriva, explained implications -ordered Pulmicort via neb Code(s): J45.901 - UNSPECIFIED ASTHMA WITH (ACUTE) EXACERBATION (2) COPD (chronic obstructive pulmonary disease) Code(s): J44.9 - CHRONIC OBSTRUCTIVE PULMONARY DISEASE, UNSPECIFIED Qualifiers: COPD type: unspecified COPD Qualified Code(s): J44.9 - Chronic obstructive pulmonary disease, unspecified (3) Hypertension Code(s): I10 - ESSENTIAL (PRIMARY) HYPERTENSION (4) Elevated troponin Assessment/Plan: -likely secondary to back to back albuterol nebs, previous admission was elevated as well -no changes in EKG -asymptomatic -cardiology eval Code(s): R74.8 - ABNORMAL LEVELS OF OTHER SERUM ENZYMES Assessment/Plan see problem list d/c once cleared by Pulmonary Nebulizer compressor and kit sent to her pharmacy, will check coverage
[2017-06-06] MEDS: ATORVASTATIN CA 10 MG TABLET (FP) PO SCH (21:24)
[2017-06-07] MEDS: ALBUTEROL SO4 2.5/IPRATROPIUM 0.5 INH SOL 3 ML VIAL.NEB. NEB SCH ×6 (00:05→18:09)
[2017-06-07] MEDS: ACETAMINOPHEN 325 MG TABLET (FP) PO PRN (00:56)
[2017-06-07] MEDS: LORazepam 1 MG TABLET PO PRN ×2 (00:56→22:21)
[2017-06-07] MEDS: methylPREDNISolone NA SUCC 40 MG/1 ML VIAL IVPUSH SCH ×2 (03:37→11:05)
[2017-06-07] MEDS ORDERED: INSULIN DETEMIR 100 UNITS/ML MDV SQ ONE (06:53)
--- NOTE | 2017-06-07 10:20 | PN ---
Progress Note (short form) - Note Progress Note: PULMONARY VSS/AFEBRILE FEELS CONGESTED AND WHEEZY THIS AM REMAINS WITH HEAVY PERFUME AND REBOLLEDO IN ROOM PEAK FLOW PENDING ANICTERIC MINIMAL SCATTERED EXP B/L WHEEZE S1S2 ABD SOFT NONTENDER NO EDEMA LABS/MEDS/NOTES/IMAGES/MICRO REVIEWED LABS PENDING FOR TODAY IMP ASTHMA/COPD EXACERBATION ASHD S/P MIX2,S/P STENT HTN HLD PLAN IV STEROIDS TO CONTINUE INHALED BRONCHODILATORS O2/CBC/CMP PENDING CYCLE TROPS MONITOR PEAK FLOW SUGGEST CARDIO CONSULT REFRAIN FROM USING PERFUME HOPE TO BE READY FOR DISCHARGE TOMORROW Efren RENTERIA MD
[2017-06-07] MEDS: BUDESONIDE 0.25 MG/2ML INH SUSP VIAL NEB SCH ×2 (10:40→22:31)
[2017-06-07] MEDS: CLOPIDOGREL BISULFATE 75 MG TABLET (FP) PO SCH (11:05)
[2017-06-07] MEDS: VALSARTAN 160 MG TABLET (UD) PO SCH (11:05)
[2017-06-07] MEDS: FUROSEMIDE 20 MG TABLET (FP) PO SCH (11:05)
[2017-06-07] MEDS: HEPARIN NA (PORCINE) 5,000 UNITS/ML 1ML VIAL SQ SCH ×2 (11:06→22:17)
[2017-06-07] MEDS: TIOTROPIUM BROMIDE 18 MCG/INH (DEVICE W/ 5 CAPSULES) IH SCH (11:06)
[2017-06-07] MEDS: BUDESONIDE/FORMETEROL FUMARATE 160/4.5 mcg INHALER IH SCH ×2 (11:07→22:16)
--- NOTE | 2017-06-07 12:52 | PN ---
Progress Note, Physician History of Present Illness: feels better - Current Medication List Current Medications: Active Medications Acetaminophen (Tylenol -) 650 mg PO Q6H PRN PRN Reason: FEVER OR PAIN Last Admin: 06/07/17 00:56 Dose: 650 mg Albuterol Sulfate (Ventolin 0.083% Nebulizer Soln -) 1 amp NEB Q4H PRN PRN Reason: SHORT OF BREATH/WHEEZING Last Admin: 06/05/17 10:25 Dose: 1 amp Albuterol/Ipratropium (Duoneb -) 1 amp NEB QIDR [facility] Last Admin: 06/07/17 06:20 Dose: 1 amp Atorvastatin Calcium (Lipitor -) 10 mg PO HS [facility] Last Admin: 06/06/17 21:24 Dose: 10 mg Benzocaine/Menthol (Cepacol Lozenge -) 1 each MM Q4H PRN PRN Reason: SORE THROAT Last Admin: 06/06/17 21:25 Dose: 1 each Budesonide (Pulmicort 0.25 Mg Nebulizer -) 1 amp NEB BID [facility] Last Admin: 06/06/17 22:00 Dose: Not Given Budesonide/Formoterol Fumarate (Symbicort 160/4.5mcg -) 2 puff IH BID [facility] Last Admin: 06/07/17 11:07 Dose: Not Given Clopidogrel Bisulfate (Plavix -) 75 mg PO DAILY [facility] Last Admin: 06/07/17 11:05 Dose: 75 mg Diltiazem HCl (Cardizem Cd -) 240 mg PO DAILY [facility] Last Admin: 06/07/17 11:05 Dose: 240 mg Furosemide (Lasix -) 20 mg PO DAILY [facility] Last Admin: 06/07/17 11:05 Dose: 20 mg Heparin Sodium (Porcine) (Heparin -) 5,000 unit SQ BID [facility] Last Admin: 06/07/17 11:06 Dose: Not Given Lorazepam (Ativan -) 1 mg PO DAILY PRN PRN Reason: ANXIETY Last Admin: 06/07/17 00:56 Dose: 1 mg Prednisone (Deltasone -) 40 mg PO DAILY [facility] Tiotropium [place] (Spiriva -) 1 puff IH DAILY [facility] Last Admin: 06/07/17 11:06 Dose: 1 puff Valsartan (Diovan -) 80 mg PO DAILY [facility] Last Admin: 06/07/17 11:05 Dose: 80 mg - Objective Vital Signs: Vital Signs Temperature 98.2 F 06/07/17 06:31 Pulse Rate 76 06/07/17 11:21 Respiratory Rate 18 06/07/17 11:21 Blood Pressure 163/95 06/07/17 11:21 O2 Sat by Pulse Oximetry (%) 97 06/06/17 18:00 Cardiovascular: Yes: Regular Rate and Rhythm Respiratory: Yes: Diminished, Wheezes Gastrointestinal: Yes: Normal Bowel Sounds, Soft Labs: CBC, BMP 06/04/17 05:52 06/04/17 05:52 Assessment/Plan - Problems (1) Asthmatic bronchitis with acute exacerbation Assessment/Plan: -pulmonary consult -Neb Tx -IV steroids--to po -nasal o2 -Encouraged to avoid using any perfumes, -has Fresh catherine delivered from her - encouraged to avoid exposure -Has been refusing Symbicort, only wants to use Spiriva, explained implications -ordered Pulmicort via neb Code(s): J45.901 - UNSPECIFIED ASTHMA WITH (ACUTE) EXACERBATION (2) COPD (chronic obstructive pulmonary disease) Code(s): J44.9 - CHRONIC OBSTRUCTIVE PULMONARY DISEASE, UNSPECIFIED Qualifiers: COPD type: unspecified COPD Qualified Code(s): J44.9 - Chronic obstructive pulmonary disease, unspecified (3) Hypertension monitor Code(s): I10 - ESSENTIAL (PRIMARY) HYPERTENSION (4) Elevated troponin Assessment/Plan: -likely secondary to back to back albuterol nebs, previous admission was elevated as well -no changes in EKG -asymptomatic -cardiology eval Code(s): R74.8 - ABNORMAL LEVELS OF OTHER SERUM ENZYMES
--- NOTE | 2017-06-07 13:41 | PN ---
Progress Note (short form) - Note Progress Note: Chief Complaint: Events noted, notes reviewed, persistent dyspnea and wheeze, chest pain with cough History of Present Illness: Seen and examined on telemetry. Full consult dictated - Current Medication List Current Medications Acetaminophen (Tylenol -) 650 mg PO Q6H PRN PRN Reason: FEVER OR PAIN Last Admin: 06/07/17 00:56 Dose: 650 mg Albuterol Sulfate (Ventolin 0.083% Nebulizer Soln -) 1 amp NEB Q4H PRN PRN Reason: SHORT OF BREATH/WHEEZING Last Admin: 06/05/17 10:25 Dose: 1 amp Albuterol/Ipratropium (Duoneb -) 1 amp NEB QIDR [facility] Last Admin: 06/07/17 06:20 Dose: 1 amp Atorvastatin Calcium (Lipitor -) 10 mg PO HS [facility] Last Admin: 06/06/17 21:24 Dose: 10 mg Benzocaine/Menthol (Cepacol Lozenge -) 1 each MM Q4H PRN PRN Reason: SORE THROAT Last Admin: 06/06/17 21:25 Dose: 1 each Budesonide (Pulmicort 0.25 Mg Nebulizer -) 1 amp NEB BID [facility] Last Admin: 06/06/17 22:00 Dose: Not Given Budesonide/Formoterol Fumarate (Symbicort 160/4.5mcg -) 2 puff IH BID [facility] Last Admin: 06/07/17 11:07 Dose: Not Given Clopidogrel Bisulfate (Plavix -) 75 mg PO DAILY [facility] Last Admin: 06/07/17 11:05 Dose: 75 mg Diltiazem HCl (Cardizem Cd -) 240 mg PO DAILY [facility] Last Admin: 06/07/17 11:05 Dose: 240 mg Furosemide (Lasix -) 20 mg PO DAILY [facility] Last Admin: 06/07/17 11:05 Dose: 20 mg Heparin Sodium (Porcine) (Heparin -) 5,000 unit SQ BID [facility] Last Admin: 06/07/17 11:06 Dose: Not Given Lorazepam (Ativan -) 1 mg PO DAILY PRN PRN Reason: ANXIETY Last Admin: 06/07/17 00:56 Dose: 1 mg Prednisone (Deltasone -) 40 mg PO DAILY [facility] Tiotropium [place] (Spiriva -) 1 puff IH DAILY [facility] Last Admin: 06/07/17 11:06 Dose: 1 puff Valsartan (Diovan -) 80 mg PO DAILY [facility] Last Admin: 06/07/17 11:05 Dose: 80 mg Review of Systems Cardiovascular: As noted above Respiratory: reports: Cough and Sputum Production Gastrointestinal: denies: Nausea, Vomiting, Diarrhea, Constipation or Abdominal Discomfort Musculoskeletal: No Symptoms Reported Endocrine: No Symptoms Reported - Objective Vital Signs: Last Vital Signs Temp Pulse Resp BP Pulse Ox 98.2 F 76 18 163/95 97 06/07/17 06:31 06/07/17 11:21 06/07/17 11:21 06/07/17 11:21 06/06/17 18:00 Intake & Output 06/04/17 06/05/17 06/06/17 06/07/17 23:59 23:59 23:59 23:59 Intake Total 240 600 400 Balance 240 600 400 Weight 234 lb 6 oz Constitutional: No Distress Calm Neck: Supple Negative JVD No Bruit Respiratory: Diminished Breath Sounds at the Bases Bilateral Scattered Rhonchi Cardiovascular: S1 S2 Regular Rate and Rhythm Gastrointestinal: Soft Benign Normal Bowel Sounds Ext: Negative Edema Labs: CBC, BMP 06/04/17 05:52 06/04/17 05:52 Hepatic Panel Total Bilirubin 0.5 mg/dL (0.2-1.0) D 06/04/17 05:52 AST 14 U/L (15-37) L 06/04/17 05:52 ALT 31 U/L (12-78) D 06/04/17 05:52 Alkaline Phosphatase 65 U/L (45-117) 06/04/17 05:52 Albumin 3.6 g/dl (3.4-5.0) 06/04/17 05:52 Assessment/Plan Assessment: 1. CAD post NSTEMI post PCI/stent angina pectoris with evidence of demand ischemic injury related to exacerbation of reactive airway disease 2. Diastolic LV dysfunction with class 0-I NYHA classification LV failure, compensated/euvolemic 3. Bronchial asthma/reactive airway disease exacerbation 4. HTN 5. Hypercholesterolemia 6. CKD PLAN: 1. Continue Cardizem CD 2. Continue Diovan and titration of dosage 3. Continue Statin/Lipitor therapy 4. Continue Plavix 5. Continue Lasix with caution 6. No additional cardiovascular intervention or evaluation indicated at this point for the above noted presentation, to F/U with Dr. John ivan D/C Cathryn Ferraro MD
[2017-06-07] MEDS ORDERED: VALSARTAN 160 MG TABLET (UD) PO SCH (14:00)
--- NOTE | 2017-06-07 14:28 | CONS ---
DATE OF CONSULTATION: 06/07/2017 CONSULTATION REQUESTED BY: Сергей Alamo MD CHIEF COMPLAINT: Dyspnea, cough, chest discomfort, cardiovascular evaluation. A 62-year-old obese female of descent, with known history of coronary artery disease, status post [id number] elevation myocardial infarction, status post percutaneous coronary intervention, stenting April of 2014, angina pectoris, prior history of demand ischemia, diastolic left ventricular dysfunction with class 0 [place] [employer] classification left ventricular failure, hypertensive cardiovascular disease, hypercholesterolemia, reactive airway disease, bronchial asthma, with several hospitalizations with exacerbation, who presented to [facility] with cough, dyspnea, wheeze related to exacerbation of the above-noted reactive airway disease/bronchial asthma. Patient, in addition, complained of chest discomfort which was exacerbated by cough and deep inspiration. Patient was noted to have elevated troponin I level, in view of which Cardiology evaluation was requested. The patient denies any exacerbation of the above noted discomfort with physical activity. Patient denied any orthopnea, paroxysmal nocturnal dyspnea, but reported increasing bilateral lower extremity edema. Patient denied any palpitation, dizziness, lightheadedness, or syncope. Patient denied any fatigue or tiredness. PAST MEDICAL HISTORY: Coronary artery disease, status post [id number] elevation myocardial infarction, status post percutaneous coronary intervention, stenting, angina pectoris, diastolic left ventricular dysfunction, with class 0 [place] [employer] classification left ventricular failure, hypertensive cardiovascular disease, hypercholesterolemia, reactive airway disease, bronchial asthma. PAST SURGICAL HISTORY: Appendectomy and section. SOCIAL HISTORY: Denies tobacco abuse or alcohol intake. FAMILY HISTORY: Positive coronary artery disease. ALLERGIES: CIPROFLOXACIN and IV CONTRAST. Medical therapy currently includes acetaminophen 650 mg every 6 hours as needed, Ventolin nebulizer, DuoNeb nebulizer, Lipitor 10 mg once a day, Cepacol lozenges, Pulmicort nebulizer, Symbicort 2 puffs twice a day, Plavix 75 mg once a day, Cardizem CD 240 mg once a day, Lasix 20 mg once a day, subcutaneous heparin 5000 units twice a day, Ativan 1 mg once a day, as needed, prednisone 40 mg once a day, Spiriva 1 puff once a day, Diovan 80 mg once a day. REVIEW OF SYSTEMS: Head and Neck: Denies headache, photophobia, blurring of vision. Respiratory: As noted above. Cardiovascular: As noted above. Gastrointestinal: Denies nausea, vomiting, diarrhea, abdominal discomfort. Musculoskeletal: No symptoms reported. Genitourinary: No symptoms reported. PHYSICAL EXAMINATION: Vital Signs: Blood pressure is 163/95 mmHg. Pulse rate is 76 beats per minute. Temperature 98.2. Head and Neck: Pupils equal, react to light and accommodation. Extraocular muscles intact. Anicteric sclerae. Negative JVD. No bruit appreciated. Chest: Bilateral scattered rhonchi with diminished breath sounds at the bases. Cardiovascular: S1, S2 regular. No murmur, clicks or gallops. Abdomen: Soft, benign. Normal bowel sound. Extremities: Trace edema. Intact distal pulses. No calf tenderness. Electrocardiogram reveals sinus rhythm with nonspecific T wave abnormality and baseline artifact. Chest x-ray report was noted: No acute pathology. CBC revealed white cell count 25.0, hemoglobin 12.1, platelet count 341. Basic metabolic profile revealed sodium 141, potassium 3.5, BUN 19, creatinine 1.0. Troponin 0.15. ASSESSMENT: 1. Coronary artery disease post [id number]-[id number] elevation myocardial infarction, post percutaneous coronary intervention, stenting, angina pectoris, with evidence of demand ischemic injury related to exacerbation of reactive airway disease. 2. Diastolic left ventricular dysfunction with class 0 to 1 [place] [employer] classification left ventricular failure, compensated/euvolemic. 3. Bronchial asthma, reactive airway disease exacerbation. 4. Hypertensive cardiovascular disease. 5. Hypercholesterolemia. 6. Chronic kidney disease. RECOMMENDATION: 1. Continuation of Cardizem CD therapy. 2. Continuation of Diovan therapy and titration of dosage. 3. Continuation of statin/Lipitor therapy. 4. Continuation of Plavix therapy. 5. Continuation of Lasix therapy with caution. 6. No additional cardiovascular intervention or evaluation is indicated at this point for the above-noted presentation. The patient was advised to follow up with her front office manager, Dr. John Solano, post discharge. Thank you for the kind referral. MARISOL CARPIO M.D. [id number]
[2017-06-07] MEDS ORDERED: VALSARTAN 80 MG TABLET (UD) PO ONE (15:00)
[2017-06-07] MEDS: predniSONE 20 MG TABLET (UD) PO SCH ×2 (16:53→19:23)
[2017-06-07] MEDS: ATORVASTATIN CA 10 MG TABLET (FP) PO SCH (22:16)
[2017-06-08] MEDS: ALBUTEROL SO4 2.5/IPRATROPIUM 0.5 INH SOL 3 ML VIAL.NEB. NEB SCH ×3 (01:01→11:35)
[2017-06-08 10:17] VITALS: BP 167/96; PULSE 84; TEMP 98.4
[2017-06-08] MEDS: TIOTROPIUM BROMIDE 18 MCG/INH (DEVICE W/ 5 CAPSULES) IH SCH (10:22)
[2017-06-08] MEDS: HEPARIN NA (PORCINE) 5,000 UNITS/ML 1ML VIAL SQ SCH ×2 (10:22→10:24)
[2017-06-08] MEDS: FUROSEMIDE 20 MG TABLET (FP) PO SCH (10:22)
[2017-06-08] MEDS: predniSONE 20 MG TABLET (UD) PO SCH (10:22)
[2017-06-08] MEDS: CLOPIDOGREL BISULFATE 75 MG TABLET (FP) PO SCH (10:22)
[2017-06-08] MEDS: BUDESONIDE/FORMETEROL FUMARATE 160/4.5 mcg INHALER IH SCH (10:23)
[2017-06-08 10:32] LABS: HEMATOCRIT 36.8 % (32.4-45.2); HEMOGLOBIN 11.5 GM/dL (10.7-15.3); MCH 25.1 pg (25.7-33.7); MCHC 31.3 g/dl (32.0-36.0); MEAN CELL VOLUME 80.4 fl (80-96); MEAN PLT VOLUME 8.9 fl (7.5-11.1); PLATELET COUNT 289 K/MM3 (134-434); RBC 4.57 M/mm3 (3.60-5.2)
--- NOTE | 2017-06-08 10:36 | PN ---
Progress Note, Physician Chief Complaint: Asthmatic Bronchitis History of Present Illness: NAD, feeling much better seen by Pulmonary seen by cardiology for elevated troponin- no underlying cardiac etiology - Current Medication List Current Medications: Active Medications Acetaminophen (Tylenol -) 650 mg PO Q6H PRN PRN Reason: FEVER OR PAIN Last Admin: 06/07/17 00:56 Dose: 650 mg Albuterol Sulfate (Ventolin 0.083% Nebulizer Soln -) 1 amp NEB Q4H PRN PRN Reason: SHORT OF BREATH/WHEEZING Last Admin: 06/05/17 10:25 Dose: 1 amp Albuterol/Ipratropium (Duoneb -) 1 amp NEB QIDR [facility] Last Admin: 06/08/17 07:09 Dose: 1 amp Atorvastatin Calcium (Lipitor -) 10 mg PO HS [facility] Last Admin: 06/07/17 22:16 Dose: 10 mg Benzocaine/Menthol (Cepacol Lozenge -) 1 each MM Q4H PRN PRN Reason: SORE THROAT Last Admin: 06/06/17 21:25 Dose: 1 each Budesonide (Pulmicort 0.25 Mg Nebulizer -) 1 amp NEB BID [facility] Last Admin: 06/07/17 22:31 Dose: 1 amp Budesonide/Formoterol Fumarate (Symbicort 160/4.5mcg -) 2 puff IH BID [facility] Last Admin: 06/08/17 10:23 Dose: 2 puff Clopidogrel Bisulfate (Plavix -) 75 mg PO DAILY [facility] Last Admin: 06/08/17 10:22 Dose: 75 mg Diltiazem HCl (Cardizem Cd -) 240 mg PO DAILY [facility] Last Admin: 06/08/17 10:22 Dose: 240 mg Furosemide (Lasix -) 20 mg PO DAILY [facility] Last Admin: 06/08/17 10:22 Dose: 20 mg Heparin Sodium (Porcine) (Heparin -) 5,000 unit SQ BID [facility] Last Admin: 06/08/17 10:24 Dose: Not Given Lorazepam (Ativan -) 1 mg PO DAILY PRN PRN Reason: ANXIETY Last Admin: 06/07/17 22:21 Dose: 1 mg Prednisone (Deltasone -) 40 mg PO DAILY [facility] Last Admin: 06/08/17 10:22 Dose: 40 mg Tiotropium [facility] (Spiriva -) 1 puff IH DAILY [facility] Last Admin: 06/08/17 10:22 Dose: 1 puff Valsartan (Diovan -) 160 mg PO DAILY [facility] Last Admin: 06/08/17 10:22 Dose: 160 mg - Objective Vital Signs: Vital Signs Temperature 98.4 F 06/08/17 10:00 Pulse Rate 84 06/08/17 10:00 Respiratory Rate 20 06/08/17 10:00 Blood Pressure 167/96 06/08/17 10:00 O2 Sat by Pulse Oximetry (%) 96 06/08/17 02:00 Constitutional: Yes: Well Nourished, No Distress, Calm Cardiovascular: Yes: Regular Rate and Rhythm Respiratory: Yes: Regular Gastrointestinal: Yes: Normal Bowel Sounds Musculoskeletal: Yes: WNL Extremities: Yes: WNL Edema: No Peripheral Pulses WNL: Yes Neurological: Yes: Alert, Oriented Psychiatric: Yes: Alert, Oriented Problem List - Problems (1) Asthmatic bronchitis with acute exacerbation Assessment/Plan: -pulmonary consult -Neb Tx -PO steroids tapering dose -nasal o2 -Encouraged to avoid using any perfumes, continues to use perfumes, lotions which are highly fragrant. Still has fresh catherine in the room. has Fresh catherine delivered from her - encouraged to avoid exposure -has been using symbicort and Pulmicort via neb Code(s): J45.901 - UNSPECIFIED ASTHMA WITH (ACUTE) EXACERBATION (2) COPD (chronic obstructive pulmonary disease) Code(s): J44.9 - CHRONIC OBSTRUCTIVE PULMONARY DISEASE, UNSPECIFIED Qualifiers: COPD type: unspecified COPD Qualified Code(s): J44.9 - Chronic obstructive pulmonary disease, unspecified (3) Hypertension Code(s): I10 - ESSENTIAL (PRIMARY) HYPERTENSION (4) Elevated troponin Assessment/Plan: -likely secondary to back to back albuterol nebs, previous admission was elevated as well -no changes in EKG -asymptomatic -cardiology eval appreciated Code(s): R74.8 - ABNORMAL LEVELS OF OTHER SERUM ENZYMES Assessment/Plan see problem list d/c home today
[2017-06-08 10:37] LABS: WHITE BLOOD COUNT 35.2 K/mm3 (4.0-10.0)
[2017-06-08] MEDS: BUDESONIDE 0.25 MG/2ML INH SUSP VIAL NEB SCH (10:55)
[2017-06-08 11:13] LABS: ALBUMIN 3.1 g/dl (3.4-5.0); ANION GAP 16 (8-16); BLOOD UREA NITROGEN 31 mg/dL (7-18); CALCIUM 8.4 mg/dL (8.5-10.1); CHLORIDE 100 mmol/L (98-107); CO2 21 mmol/L (21-32); GLUCOSE,RANDOM 237 mg/dL (74-106); POTASSIUM 4.1 mmol/L (3.5-5.1); SODIUM 137 mmol/L (136-145)
[2017-06-08 11:19] LABS: ALK PHOS 60 U/L (45-117); BILIRUBIN,TOTAL 0.7 mg/dL (0.2-1.0); CREATININE 1.4 mg/dL (0.55-1.02); SGOT/AST 26 U/L (15-37); SGPT/ALT 63 U/L (12-78); TOT PROT 6.3 g/dl (6.4-8.2)
--- NOTE | 2017-06-08 11:26 | DS ---
Physical Examination Vital Signs: Vital Signs Temperature 98.4 F 06/08/17 10:00 Pulse Rate 84 06/08/17 10:00 Respiratory Rate 20 06/08/17 10:00 Blood Pressure 167/96 06/08/17 10:00 O2 Sat by Pulse Oximetry (%) 96 06/08/17 02:00 Constitutional: Yes: Well Nourished, No Distress, Calm Cardiovascular: Yes: Regular Rate and Rhythm Respiratory: Yes: Regular Gastrointestinal: Yes: Normal Bowel Sounds Musculoskeletal: Yes: WNL Extremities: Yes: WNL Edema: No Peripheral Pulses WNL: Yes Neurological: Yes: Alert, Oriented Psychiatric: Yes: Alert, Oriented Labs: CBC, BMP 06/08/17 10:05 06/08/17 10:05 Discharge Summary Reason For Visit: CHRONIC OBSTRUCTIVE PULMONARY DISEASE Current Active Problems Asthma-COPD overlap syndrome (Acute) Asthmatic bronchitis with acute exacerbation (Acute) COPD (chronic obstructive pulmonary disease) (Acute) Hospital Course: Ms Lew patient is a 62-year-old female with a significant past medical history of COPD, asthma, HTN, HLD, CAD, 2 past MIs (2013, 2016 s/p stent placement), and presents to the emergency department with wheezing and shortness of breath since this afternoon. She reports she has lost her albuterol nebulizer recently. She states she was gasping this afternoon and used her inhaler twice with temporary relief. She also notes associated runny nose, productive cough, and congestion. Patient reports she was in this ED 1 week ago for the same complaints, and frequently presents here for shortness of breath. She has been taking prednisone and the antibiotic as prescribed from the last visit. The patient denies chest pain, headache and dizziness. The patient denies fever , chills, nausea, vomit, diarrhea and constipation. The patient denies dysuria, frequency, urgency and hematuria. Condition: Stable - Instructions Diet, Activity, Other Instructions: Low sodium diet Avoid respiratory triggers that may worsen your Asthma symptoms: -Indoor allergens, such as dust mites, animal danders, molds, mice, and cockroaches, are of particular importance. Food allergy rarely causes isolated asthma symptoms, although wheezing and cough can be symptoms of food-induced anaphylaxis. -A variety of irritants can induce asthma symptoms, including cigarette smoke, fireplace smoke, ashes, aerosol sprays, perfumes, cooking odors, musty odors, shower steam, traffic fumes, air pollution, desert dust, and workplace irritants Disposition: HOME - Home Medications Comprehensive Discharge Medication List: Ambulatory Orders Clopidogrel Bisulfate [Clopidogrel] 75 mg PO DAILY 10/28/15 Valsartan [Diovan] 80 mg PO DAILY 10/28/15 Diltiazem Cd [Cardizem Cd -] 240 mg PO DAILY 03/26/16 Furosemide [Lasix -] 20 mg PO DAILY 03/26/16 Pravastatin Sodium 20 mg PO DAILY 03/26/16 Albuterol Sulfate Inhaler - [Ventolin HFA Inhaler -] 1 - 2 inh PO Q4H #1 inhaler 05/08/17 Lorazepam [Ativan] 1 mg PO DAILY PRN 05/08/17 Acetaminophen [Tylenol .Regular Strength -] 650 mg PO Q6H PRN tablet 05/29/17 Albuterol 2.5/Ipratropium 0.5 [Duoneb -] 1 amp NEB QIDR amp 05/29/17 Albuterol 2.5/Ipratropium 0.5 [Duoneb -] 1 neb NEB Q4H PRN #180 vial 06/05/17 Nebulizer Accessories [Reusable Nebulizer Kit] 1 each Q4H PRN #1 kit Nebulizer and Compressor [Home Nebulizer Plus Sidestream] 1 each MC Q4H PRN #1 each 06/05/17 Budesonide [Pulmicort 0.25 mg Nebulizer -] 1 neb NEB BID #60 vial 06/08/17 Budesonide/Formeterol Fumarate [SYMBICORT 160/4.5mcg -] 2 puff IH BID inhaler 06/08/17 Prednisone [Deltasone -] 10 mg PO DAILY #35 tablet 06/08/17
[2017-06-08 11:48] LABS: ACANTHOCYTES 0; ANISOCYTOSIS 0; HELMET CELLS 0; HOWELL-JOLLY BODIES 0; MACROCYTOSIS 0; OVALOCYTE 0; PLATELET ESTIMATE NORMAL; SICKELED CELLS 0; TARGET CELLS 0; TEAR DROP CELLS 0; TOXIC GRANULATION 0
--- NOTE | 2017-06-08 11:49 | PN ---
Progress Note (short form) - Note Progress Note: Feels overall better. SOB resolved and no CP. Intake & Output 06/05/17 06/06/17 06/07/17 06/08/17 23:59 23:59 23:59 23:59 Intake Total 022 527 2204 Balance 273 725 6136 Last Vital Signs Temp Pulse Resp BP Pulse Ox 98.4 F 84 20 167/96 96 06/08/17 10:00 06/08/17 10:00 06/08/17 10:00 06/08/17 10:00 06/08/17 02:00 Active Medications Acetaminophen (Tylenol -) 650 mg PO Q6H PRN PRN Reason: FEVER OR PAIN Last Admin: 06/07/17 00:56 Dose: 650 mg Albuterol Sulfate (Ventolin 0.083% Nebulizer Soln -) 1 amp NEB Q4H PRN PRN Reason: SHORT OF BREATH/WHEEZING Last Admin: 06/05/17 10:25 Dose: 1 amp Albuterol/Ipratropium (Duoneb -) 1 amp NEB QIDR [facility] Last Admin: 06/08/17 11:35 Dose: 1 amp Atorvastatin Calcium (Lipitor -) 10 mg PO HS [facility] Last Admin: 06/07/17 22:16 Dose: 10 mg Benzocaine/Menthol (Cepacol Lozenge -) 1 each MM Q4H PRN PRN Reason: SORE THROAT Last Admin: 06/06/17 21:25 Dose: 1 each Budesonide (Pulmicort 0.25 Mg Nebulizer -) 1 amp NEB BID [facility] Last Admin: 06/08/17 10:55 Dose: 1 amp Budesonide/Formoterol Fumarate (Symbicort 160/4.5mcg -) 2 puff IH BID [facility] Last Admin: 06/08/17 10:23 Dose: 2 puff Clopidogrel Bisulfate (Plavix -) 75 mg PO DAILY [facility] Last Admin: 06/08/17 10:22 Dose: 75 mg Diltiazem HCl (Cardizem Cd -) 240 mg PO DAILY [facility] Last Admin: 06/08/17 10:22 Dose: 240 mg Furosemide (Lasix -) 20 mg PO DAILY [facility] Last Admin: 06/08/17 10:22 Dose: 20 mg Heparin Sodium (Porcine) (Heparin -) 5,000 unit SQ BID [facility] Last Admin: 06/08/17 10:24 Dose: Not Given Lorazepam (Ativan -) 1 mg PO DAILY PRN PRN Reason: ANXIETY Last Admin: 06/07/17 22:21 Dose: 1 mg Prednisone (Deltasone -) 40 mg PO DAILY [facility] Last Admin: 06/08/17 10:22 Dose: 40 mg Tiotropium [place] (Spiriva -) 1 puff IH DAILY [facility] Last Admin: 06/08/17 10:22 Dose: 1 puff Valsartan (Diovan -) 160 mg PO DAILY [facility] Last Admin: 06/08/17 10:22 Dose: 160 mg Constitutional: Yes: Well Nourished, No Distress Cardiovascular: Yes: Regular Rate and Rhythm Respiratory: Yes: No wheezing Gastrointestinal: Yes: Normal Bowel Sounds Musculoskeletal: Yes: WNL Extremities: Yes: WNL Edema: No Peripheral Pulses WNL: Yes Neurological: Yes: Alert, Oriented Psychiatric: Yes: Alert, Oriented Laboratory Results - last 24 hr 06/07/17 06/07/17 06/08/17 16:00 16:00 10:05 WBC 35.2 H* D RBC 4.57 Hgb 11.5 Hct 36.8 MCV 80.4 MCH 25.1 L MCHC 31.3 L RDW 19.0 H Plt Count 289 MPV 8.9 Neutrophils % No Result Required. Lymphocytes % No Result Required. Sodium Potassium Chloride Carbon Dioxide Anion Gap BUN Creatinine Creat Clearance w eGFR Random Glucose Calcium Total Bilirubin AST ALT Alkaline Phosphatase Troponin I 0.18 H B-Natriuretic Peptide 405.24 H Total Protein Albumin 06/08/17 10:05 WBC RBC Hgb Hct MCV MCH MCHC RDW Plt Count MPV Neutrophils % Lymphocytes % Sodium 137 Potassium 4.1 Chloride 100 Carbon Dioxide 21 D Anion Gap 16 BUN 31 H D Creatinine 1.4 H D Creat Clearance w eGFR 38.23 Random Glucose 237 H D Calcium 8.4 L Total Bilirubin 0.7 D AST 26 D ALT 63 D Alkaline Phosphatase 60 Troponin I 0.19 H B-Natriuretic Peptide Total Protein 6.3 L Albumin 3.1 L Problem List - Problems (1) Asthmatic bronchitis with acute exacerbation Assessment/Plan: Code(s): J45.901 - UNSPECIFIED ASTHMA WITH (ACUTE) EXACERBATION (2) COPD (chronic obstructive pulmonary disease) Code(s): J44.9 - CHRONIC OBSTRUCTIVE PULMONARY DISEASE, UNSPECIFIED Qualifiers: COPD type: unspecified COPD Qualified Code(s): J44.9 - Chronic obstructive pulmonary disease, unspecified (3) Hypertension Code(s): I10 - ESSENTIAL (PRIMARY) HYPERTENSION (4) Elevated troponin Assessment/Plan: Code(s): R74.8 - ABNORMAL LEVELS OF OTHER SERUM ENZYMES Assessment/Plan Prednisone taper BD TX No smoking PFTs once stable D/C planning Dr Desai
--- NOTE | 2017-06-08 13:33 | PN ---
Progress Note, Physician Chief Complaint: Events noted Not in distress History of Present Illness: Patient was seen and examined. Awake and alert. Chart was reviewed Denies chest pain, less SOB and no palpitations Less cough, but still productive - Current Medication List Current Medications: Active Medications Acetaminophen (Tylenol -) 650 mg PO Q6H PRN PRN Reason: FEVER OR PAIN Last Admin: 06/07/17 00:56 Dose: 650 mg Albuterol Sulfate (Ventolin 0.083% Nebulizer Soln -) 1 amp NEB Q4H PRN PRN Reason: SHORT OF BREATH/WHEEZING Last Admin: 06/05/17 10:25 Dose: 1 amp Albuterol/Ipratropium (Duoneb -) 1 amp NEB QIDR [facility] Last Admin: 06/08/17 11:35 Dose: 1 amp Atorvastatin Calcium (Lipitor -) 10 mg PO HS [facility] Last Admin: 06/07/17 22:16 Dose: 10 mg Benzocaine/Menthol (Cepacol Lozenge -) 1 each MM Q4H PRN PRN Reason: SORE THROAT Last Admin: 06/06/17 21:25 Dose: 1 each Budesonide (Pulmicort 0.25 Mg Nebulizer -) 1 amp NEB BID [facility] Last Admin: 06/08/17 10:55 Dose: 1 amp Budesonide/Formoterol Fumarate (Symbicort 160/4.5mcg -) 2 puff IH BID [facility] Last Admin: 06/08/17 10:23 Dose: 2 puff Clopidogrel Bisulfate (Plavix -) 75 mg PO DAILY [facility] Last Admin: 06/08/17 10:22 Dose: 75 mg Diltiazem HCl (Cardizem Cd -) 240 mg PO DAILY [facility] Last Admin: 06/08/17 10:22 Dose: 240 mg Furosemide (Lasix -) 20 mg PO DAILY [facility] Last Admin: 06/08/17 10:22 Dose: 20 mg Heparin Sodium (Porcine) (Heparin -) 5,000 unit SQ BID [facility] Last Admin: 06/08/17 10:24 Dose: Not Given Lorazepam (Ativan -) 1 mg PO DAILY PRN PRN Reason: ANXIETY Last Admin: 06/07/17 22:21 Dose: 1 mg Prednisone (Deltasone -) 40 mg PO DAILY [facility] Last Admin: 06/08/17 10:22 Dose: 40 mg Tiotropium [place] (Spiriva -) 1 puff IH DAILY [facility] Last Admin: 06/08/17 10:22 Dose: 1 puff Valsartan (Diovan -) 160 mg PO DAILY [facility] Last Admin: 06/08/17 10:22 Dose: 160 mg - Objective Vital Signs: Vital Signs Temperature 98.4 F 06/08/17 10:00 Pulse Rate 84 06/08/17 10:00 Respiratory Rate 20 06/08/17 10:00 Blood Pressure 167/96 06/08/17 10:00 O2 Sat by Pulse Oximetry (%) 95 06/08/17 10:00 Eyes: Yes: PERRL HENT: Yes: Atraumatic Neck: Yes: Supple Cardiovascular: Yes: Regular Rate and Rhythm, S1, S2 Respiratory: Yes: Diminished, Rhonchi Gastrointestinal: Yes: Normal Bowel Sounds, Soft. No: Tenderness Edema: No Labs: CBC, BMP 06/08/17 10:05 06/08/17 10:05 Problem List - Problems (1) Asthmatic bronchitis with acute exacerbation Code(s): J45.901 - UNSPECIFIED ASTHMA WITH (ACUTE) EXACERBATION Qualifiers: Asthma severity: unspecified severity Asthma persistence: unspecified Qualified Code(s): J45.901 - Unspecified asthma with (acute) exacerbation (2) COPD (chronic obstructive pulmonary disease) Code(s): J44.9 - CHRONIC OBSTRUCTIVE PULMONARY DISEASE, UNSPECIFIED Qualifiers: COPD type: unspecified COPD Qualified Code(s): J44.9 - Chronic obstructive pulmonary disease, unspecified (3) ASHD (arteriosclerotic heart disease) Code(s): I25.10 - ATHSCL HEART DISEASE OF [place] CORONARY ARTERY W/O ANG PCTRS (4) Elevated troponin Code(s): R74.8 - ABNORMAL LEVELS OF OTHER SERUM ENZYMES (5) H/O non-ST elevation myocardial infarction (NSTEMI) Code(s): I25.2 - OLD MYOCARDIAL INFARCTION (6) History of percutaneous coronary intervention Code(s): Z98.89 - OTHER SPECIFIED POSTPROCEDURAL STATES * DO NOT USE * (7) Hypercholesterolemia Code(s): E78.0 - PURE HYPERCHOLESTEROLEMIA * DO NOT USE * (8) Hypertension Code(s): I10 - ESSENTIAL (PRIMARY) HYPERTENSION Qualifiers: Hypertension type: essential hypertension Qualified Code(s): I10 - Essential (primary) hypertension Assessment/Plan 1. CAD post NSTEMI post PCI/stent angina pectoris with evidence of demand ischemic injury related to exacerbation of reactive airway disease 2. Diastolic LV dysfunction with class 0-I NYHA classification LV failure, compensated/euvolemic 3. Bronchial asthma/reactive airway disease exacerbation 4. HTN 5. Hypercholesterolemia 6. CKD PLAN: 1. Continue Cardizem CD and Diovan, titrate accordingly 2. Continue Lipitor 3. Continue Plavix 4. Continue Lasix with caution 5. No additional cardiovascular intervention or evaluation indicated at this point, but advised to F/U with Dr. John Solano after discharge Further plans are to follow Jase Toscano MD
== END 2017-06-08 13:48 | disposition home or self-care (01) ==
LOC: JER 05:07 → JERBED 10:06 → J8W 15:34
PROVIDERS: ADMIT Family Medicine; ATTEND Family Medicine
PROC: 3E0333Z Introduction of Anti-inflammatory into Peripheral Vein, Percutaneous Approach (ICD-10-PCS; principal; 2017-06-04)
PROC: 3E033GC Introduction of Other Therapeutic Substance into Peripheral Vein, Percutaneous Approach (ICD-10-PCS; 2017-06-04)
PROC: 3E0F7GC Introduction of Other Therapeutic Substance into Respiratory Tract, Via Natural or Artificial Opening (ICD-10-PCS; 2017-06-04)
DX: J45.901 Unspecified asthma with (acute) exacerbation (principal); J44.9 Chronic obstructive pulmonary disease, unspecified; I10 Essential (primary) hypertension; I25.10 Atherosclerotic heart disease of native coronary artery without angina pectoris; I25.2 Old myocardial infarction; E78.5 Hyperlipidemia, unspecified; R77.8 Other specified abnormalities of plasma proteins; Z98.890 Other specified postprocedural states; Z98.84 Bariatric surgery status; Z95.5 Presence of coronary angioplasty implant and graft; Z88.1 Allergy status to other antibiotic agents; Z91.041 Radiographic dye allergy status; Z91.011 Allergy to milk products
CPT/HCPCS: 36415; 71010-TC; 71046-TC; 80053; 83880; 84484; 85025; 93005; 93010; 94150; 94640; 99284-25; G0378; J1644

== ENCOUNTER 2017-06-17 13:53 | Inpatient (IN) | payer OTHER ==
[2017-06-17 14:05] VITALS: BMI 53.1
--- NOTE | 2017-06-17 14:08 | PDOC ---
Rapid Medical Evaluation Chief Complaint: Pain Time Seen by Provider: 06/17/17 14:02 Medical Evaluation: Allergies Allergy/AdvReac Type Severity Reaction Status Date / Time ciprofloxacin [From Cipro] Allergy Intermediate anaphylaxis Verified 06/04/17 05 :19 ciprofloxacin HCl Allergy Intermediate anaphylaxis Verified 06/04/17 05:19 [From Cipro] Iodinated Contrast- Oral and Allergy Intermediate anaphylaxis Verified 06/04/17 05:19 IV Dye lactose Allergy Intermediate Verified 06/04/17 05:19 06/17/17 14:02 The patient presents with a chief complaint of: Abdominal pain and nausea since this morning. Rates the pain 02/14. Describes it as crampy. Denies fevers, vomiting, diarrhea, recent travel. Antibiotics two weeks ago for COPD exacerbation. Surgical Hx: appendectomy. I have performed a brief in-person evaluation of this patient; Pertinent physical exam findings: Afebrile. TTP RLQ.Soft abdomen I have ordered the following: CBC, CMP, PT/INR, Lipase, UA, UC, EKG The patient will proceed to the ED for further evaluation. Discharge Disposition - Referrals Referrals: Сергей Alamo MD [Primary Care Provider] - - Patient Instructions - Post Discharge Activity
--- NOTE | 2017-06-17 17:05 | PDOC ---
History of Present Illness - General History Source: Patient Exam Limitations: No Limitations - History of Present Illness Initial Comments: 06/17/17 19:59 Patient is a 62 year old female with a significant past medical history who presents to the ED with complaints of abdominal pain that began last night while laying in bed. Patient reports experiencing intermittent nausea yesterday afternoon, with 1 episode of vomiting at 4pm with dry heaving followed afterwards. She reports experiencing diffuse upper abdominal pain that she states feels like a cramping pain that began last night while laying down but has begun to increase in intensity, prompting her to come into the ED for evaluation. As per patient's , patient was in [facility] ED last week for bronchitis. She reports her last normal bowel movement was yesterday morning. Denies chest pain, SOB. Denies fevers, chills. Denies contact with sick individuals, out of state travelling. Denies any other symptoms. Allergies: ciprofloxacin [From Cipro], ciprofloxacin HCl, Iodinated Contrast- Oral and IV Dye, lactose Social history: No smoking. No alcohol. No illicit drugs. Surgical history: Appendectomy. Gastric bypass. Cardiac Stent (Apr 20, 2014). C- Section. PMD: Dr. Alamo <Robert Lizarraga - Last Filed: 06/17/17 19:59> <Anastasiia Knox - Last Filed: 06/17/17 21:13> - General Chief Complaint: Pain Stated Complaint: ABD PAIN Time Seen by Provider: 06/17/17 14:02 Past History <Robert Lizarraga - Last Filed: 06/17/17 19:59> - Past Medical History Anemia: No Asthma: Yes Cancer: No Cardiac Disorders: Yes ([place] 2013, 1 Stent) CVA: No COPD: Yes CHF: No Dementia: No Diabetes: No GI Disorders: No Disorders: No HTN: Yes Hypercholesterolemia: Yes Liver Disease: No Seizures: No Thyroid Disease: No - Surgical History Abdominal Surgery: Yes (Gastric bypass-SLEEVE) Appendectomy: Yes Cardiac Surgery: Yes (CARDIAC STENT) Cholecystectomy: No Lung Surgery: No Neurologic Surgery: No Orthopedic Surgery: No - Immunization History Immunization Up to Date: No - Suicide/Smoking/Psychosocial Hx Smoking Status: No Smoking History: Former smoker Have you smoked in the past 12 months: No Number of Cigarettes Smoked Daily: 12 If you are a former smoker, when did you quit?: 20 years ago Information on smoking cessation initiated: No Hx Alcohol Use: No Drug/Substance Use Hx: No Substance Use Type: None Hx Substance Use Treatment: No <Anastasiia Knox - Last Filed: 06/17/17 21:13> - Past Medical History Allergies/Adverse Reactions: Allergies Allergy/AdvReac Type Severity Reaction Status Date / Time ciprofloxacin [From Cipro] Allergy Intermediate anaphylaxis Verified 06/17/17 14 :05 ciprofloxacin HCl Allergy Intermediate anaphylaxis Verified 06/17/17 14:05 [From Cipro] Iodinated Contrast- Oral and Allergy Intermediate anaphylaxis Verified 06/17/17 14:05 IV Dye lactose Allergy Intermediate Verified 06/17/17 14:05 Home Medications: Ambulatory Orders Clopidogrel Bisulfate [Clopidogrel] 75 mg PO DAILY 10/28/15 Valsartan [Diovan] 80 mg PO DAILY 10/28/15 Diltiazem Cd [Cardizem Cd -] 240 mg PO DAILY 03/26/16 Furosemide [Lasix -] 20 mg PO DAILY 03/26/16 Pravastatin Sodium 20 mg PO DAILY 03/26/16 Budesonide/Formeterol Fumarate [SYMBICORT 160/4.5mcg -] 2 puff IH BID inhaler 06/08/17 Prednisone [Deltasone -] 0 mg PO DAILY 06/17/17 Review of Systems - Review of Systems Able to Perform ROS?: Yes Comments:: 06/17/17 19:59 GENERAL/CONSTITUTIONAL: No fever or chills. No weakness. HEAD, EYES, EARS, NOSE AND THROAT: No change in vision. No ear pain or discharge. No sore throat. GASTROINTESTINAL: +Nausea, +Vomiting. +Diarrhea. No constipation. GENITOURINARY: No dysuria, frequency, or change in urination. CARDIOVASCULAR: No chest pain or shortness of breath. RESPIRATORY: No cough, wheezing, or hemoptysis. MUSCULOSKELETAL: +Abdominal pain. No joint or muscle swelling. No neck or back pain. SKIN: No rash NEUROLOGIC: No headache, vertigo, loss of consciousness, or change in strength/ sensation. ENDOCRINE: No increased thirst. No abnormal weight change. HEMATOLOGIC/LYMPHATIC: No anemia, easy bleeding, or history of blood clots. ALLERGIC/IMMUNOLOGIC: No hives or skin allergy. All Other Systems: Reviewed and Negative <Pepper Lizarragaew - Last Filed: 06/17/17 19:59> *Physical Exam - Vital Signs Last Vital Signs Temp Pulse Resp BP Pulse Ox 98.4 F 98 H 18 147/98 98 06/17/17 14:02 06/17/17 14:02 06/17/17 14:02 06/17/17 14:02 06/17/17 14:02 - Physical Exam Comments: 06/17/17 19:59 GENERAL: Awake, alert, and fully oriented, in no acute distress HEAD: No signs of trauma EYES: PERRLA, EOMI, sclera anicteric, conjunctiva clear ENT: Auricles normal inspection, hearing grossly normal, nares patent, oropharynx clear without exudates. Moist mucosa NECK: Normal ROM, supple, no lymphadenopathy, JVD, or masses LUNGS: Breath sounds equal, clear to auscultation bilaterally. No wheezes, and no crackles HEART: Regular rate and rhythm, normal S1 and S2, no murmurs, rubs or gallops ABDOMEN: +Diffusely tender. +Slightly tympanic. Not paratinitic. Soft, normoactive bowel sounds. No guarding, no rebound. No masses EXTREMITIES: Normal range of motion, no edema. No clubbing or cyanosis. No cords, erythema, or tenderness NEUROLOGICAL: Cranial nerves II through XII grossly intact. Normal speech, normal gait SKIN: Warm, Dry, normal turgor, no rashes or lesions noted. <ElhamRobert - Last Filed: 06/17/17 19:59> - Vital Signs Last Vital Signs Temp Pulse Resp BP Pulse Ox 98.4 F 98 H 18 147/98 98 06/17/17 14:02 06/17/17 14:02 06/17/17 14:02 06/17/17 14:02 06/17/17 14:02 <Anastasiia Knox - Last Filed: 06/17/17 21:13> Heart Score/ECG Review - ECG Intrepretation Comment:: 06/17/17 18:09 sinus at 94, L axis, nl interval, q waves inferior leads that are age indeterminant, unchanged from prior <Anastasiia Knox - Last Filed: 06/17/17 21:13> ED Treatment Course - LABORATORY CBC & Chemistry Diagram: 06/17/17 17:11 06/17/17 17:11 - ADDITIONAL ORDERS Additional order review: Laboratory Results 06/17/17 06/17/17 06/17/17 17:21 17:11 17:11 PT with INR INR Sodium Potassium Chloride Carbon Dioxide Anion Gap BUN Creatinine Creat Clearance w eGFR Random Glucose Lactic Acid 2.0 Calcium Total Bilirubin AST ALT Alkaline Phosphatase Creatine Kinase Cancelled Troponin I Cancelled Total Protein Albumin Lipase Cancelled 06/17/17 06/17/17 17:11 17:11 PT with INR 9.50 L INR 0.84 L Sodium Cancelled Potassium Cancelled Chloride Cancelled Carbon Dioxide Cancelled Anion Gap Cancelled BUN Cancelled Creatinine Cancelled Creat Clearance w eGFR Cancelled Random Glucose Cancelled Lactic Acid Calcium Cancelled Total Bilirubin Cancelled AST Cancelled ALT Cancelled Alkaline Phosphatase Cancelled Creatine Kinase Troponin I Total Protein Cancelled Albumin Cancelled Lipase 06/17/17 17:11 RBC 4.98 MCV 81.5 MCHC 32.0 RDW 19.4 H MPV 8.5 Neutrophils % No Result Required. Lymphocytes % No Result Required. - Medications Given in the ED: ED Medications Discontinued Medications Generic Name Dose Route Start Last Admin Trade Name Freq PRN Reason Stop Dose Admin Famotidine/Sodium Chloride 20 mg in 50 mls @ 100 mls/hr 06/17/17 17:30 17:40 Pepcid 20 Mg Premixed Ivpb - IVPB 06/17/17 17:59 100 mls/hr ONCE ONE Administration Morphine Sulfate 4 mg 06/17/17 17:15 06/17/17 17:36 Morphine Injection - IVPUSH 06/17/17 17:16 4 mg ONCE ONE Administration Ondansetron HCl 4 mg 06/17/17 17:15 06/17/17 17:34 Zofran Injection IVPUSH 06/17/17 17:16 4 mg ONCE ONE Administration Sodium Chloride 1,000 ml 06/17/17 17:15 06/17/17 17:38 Normal Saline - IV 06/17/17 17:16 1,000 ml ONCE ONE Administration <Robert Lizarraga - Last Filed: 06/17/17 19:59> - LABORATORY CBC & Chemistry Diagram: 06/17/17 17:11 06/17/17 19:09 <Anastasiia Knox - Last Filed: 06/17/17 21:13> Medical Decision Making - Medical Decision Making 06/17/17 18:08 a/p: 62yo female with epigastric abd pain, diarrhea, n/v -concern for poss SBO given hx of surgery and mildly distended abd -labs, cxr, ekg, ct abd/pelvis -recent abx, only 1 episode of diarrhea, doubt c diff -will start iv -give ivf hydration, nausea control, pain control -discussed plan with the patient who agrees with the plan 06/17/17 21:11 pt with elevated trop elevated wbc (recent prednisone use) will admit to dr. robles - case discussed who accepts pt to service <Anastasiia Knox - Last Filed: 06/17/17 21:13> *DC/Admit/Observation/Transfer - Attestations Scribe Attestion: 06/17/17 20:00 Documentation prepared by Robert Lizarraga, acting as medical record transcriber for Anastasiia Knox DO, MD/. <Robert Lizarraga - Last Filed: 06/17/17 19:59> - Discharge Dispostion Admit: Yes - Attestations Physician Attestion: 06/17/17 21:13 I, Dr. Anastasiia Knox DO, attest that this document has been prepared under my direction and personally reviewed by me in its entirety. I further attest, that it accurately reflects all work, treatment, procedures and medical decision -making performed by me. <Anastasiia Knox - Last Filed: 06/17/17 21:13> Diagnosis at time of Disposition: Elevated troponin, Leukocytosis - Discharge Dispostion Condition at time of disposition: Guarded - Referrals Referrals: Сергей Alamo MD [Primary Care Provider] - - Patient Instructions - Post Discharge Activity
[2017-06-17] MEDS ORDERED: SODIUM CHLORIDE 0.9% 1000 ML INFUS.BAG IV ONE (17:15)
[2017-06-17] MEDS ORDERED: morphine CARPU-JECT 4 MG/1 ML DISP.SYRIN IVPUSH ONE (17:15)
[2017-06-17] MEDS ORDERED: ONDANSETRON 4 MG/2 ML VIAL IVPUSH ONE (17:15)
[2017-06-17 17:27] LABS: HEMATOCRIT 40.6 % (32.4-45.2); MCH 26.1 pg (25.7-33.7); MEAN CELL VOLUME 81.5 fl (80-96); MEAN PLT VOLUME 8.5 fl (7.5-11.1); PLATELET COUNT 270 K/MM3 (134-434); RBC 4.98 M/mm3 (3.60-5.2); RDW 19.4 % (11.6-15.6); WHITE BLOOD COUNT 22.5 K/mm3 (4.0-10.0)
[2017-06-17] MEDS ORDERED: FAMOTIDINE 20 MG/50 ML IVPB 20 MG/50 ML MG IVPB ONE ×2 (17:27→17:30)
[2017-06-17] MEDS ORDERED: ONDANSETRON 4 MG/2 ML VIAL ONE (17:27)
[2017-06-17] MEDS ORDERED: morphine CARPU-JECT 10 MG/1 ML DISP.SYRIN ONE (17:27)
[2017-06-17 18:16] LABS: INR 0.84 (0.82-1.09); PROTHROMBIN TIME (PATIENT) 9.5 SEC (9.98-11.88)
[2017-06-17 20:51] LABS: ALBUMIN 3.1 g/dl (3.4-5.0); ANION GAP 8 (8-16); BILIRUBIN,TOTAL 1.1 mg/dL (0.2-1.0); BLOOD UREA NITROGEN 14 mg/dL (7-18); CHLORIDE 104 mmol/L (98-107); CO2 27 mmol/L (21-32); CREATININE 0.8 mg/dL (0.55-1.02); GLUCOSE,RANDOM 113 mg/dL (74-106); LIPASE 128 U/L (73-393); MAGNESIUM 2.4 mg/dL (1.8-2.4); POTASSIUM 4.2 mmol/L (3.5-5.1); SGOT/AST 14 U/L (15-37); SGPT/ALT 44 U/L (12-78); SODIUM 139 mmol/L (136-145); TOT PROT 6.4 g/dl (6.4-8.2)
[2017-06-17 20:54] LABS: ALK PHOS 61 U/L (45-117)
[2017-06-17] MEDS ORDERED: ASPIRIN 81 MG CHEWABLE TABLETS PO ONE (21:02)
[2017-06-17 21:04] LABS: ANISOCYTOSIS 1+
[2017-06-17 21:14] LABS: URINE APPEARANCE CLOUDY; URINE BILIRUBIN NEGATIVE (NEGATIVE); URINE BLOOD 1+ (NEGATIVE); URINE COLOR YELLOW; URINE GLUCOSE (UA) NEGATIVE (NEGATIVE); URINE KETONE NEGATIVE (NEGATIVE); URINE NITRITE NEGATIVE (NEGATIVE); URINE PROTEIN NEGATIVE (NEGATIVE); URINE UROBILINOGEN NEGATIVE mg/dL (0.2-1.0)
--- NOTE | 2017-06-17 21:14 | HP ---
CHIEF COMPLAINT: abdominal discomfort PCP: DR HIGGINS HISTORY OF PRESENT ILLNESS: 62 y/o F with PMHx asthma, COPD, HTN, HLD, CAD s/p stent x 1 (2013), CHF, [place] presented to ED with complaint of severe 10/10 abdominal pain. She states the abdominal pain is crampy, intermittent, associated with dry heaves and severe nausea. She states she has not been able to vomit anything up besides clear spit. She denied ever having pain like this previously. She reported a normal BM last night but had no bowel movement today. Last meal was yesterday evening when she ate stuffed mushrooms. She reports her stomach is bigger than normal. She states she felt hot earlier today, sweated profusely, and felt lightheaded with no loss of consciousness. She denied headache, blurry vision, sore throat, chest pain, palpitations, or any urinary symptoms. ER course was notable for: (1) WBC 22.5 (2) CXR vascular congestion without effusion or consolidation, CT abdomen/ pelvic pending reading (3) prolonged QTC on EKG 470 Recent Travel: denies PAST MEDICAL HISTORY: asthma, COPD, HTN, HLD, CAD s/p stent x 1 (2013), CHF, [place] PAST SURGICAL HISTORY: appendectomy, gastric bypass, stent 2013, Social History: Smokin/2 ppd for 26 years, former smoker Alcohol:denies Drugs: denies Family History: Mother from heart dz age 81; father age 44, unknown condition. Family hx HTN, DM, HLD, heart disease Allergies ciprofloxacin [From Cipro] Allergy (Intermediate, Verified 06/17/17 14:05) anaphylaxis ciprofloxacin HCl [From Cipro] Allergy (Intermediate, Verified 06/17/17 14:05) anaphylaxis Iodinated Contrast- Oral and IV Dye Allergy (Intermediate, Verified 06/17/17 14: 05) anaphylaxis lactose Allergy (Intermediate, Verified 06/17/17 14:05) Causes upset stomach HOME MEDICATIONS: Home Medications Medication Instructions Recorded Clopidogrel Bisulfate [Clopidogrel] 75 mg PO DAILY 10/28/15 Valsartan [Diovan] 80 mg PO DAILY 10/28/15 Diltiazem Cd [Cardizem Cd -] 240 mg PO DAILY 03/26/16 Furosemide [Lasix -] 20 mg PO DAILY 03/26/16 Pravastatin Sodium 20 mg PO DAILY 03/26/16 Budesonide/Formeterol Fumarate 2 puff IH BID inhaler 06/08/17 [SYMBICORT 160/4.5mcg -] Prednisone [Deltasone -] 0 mg PO DAILY 06/17/17 REVIEW OF SYSTEMS CONSTITUTIONAL: Absent: fever, chills, diaphoresis, generalized weakness, malaise, loss of appetite, weight change HEENT: Absent: rhinorrhea, nasal congestion, throat pain, throat swelling, difficulty swallowing, mouth swelling, ear pain, eye pain, visual changes CARDIOVASCULAR: Absent: chest pain, syncope, palpitations, irregular heart rate, lightheadedness , peripheral edema RESPIRATORY: Absent: cough, shortness of breath, dyspnea with exertion, orthopnea, wheezing, stridor, hemoptysis GASTROINTESTINAL: Absent: abdominal pain, abdominal distension, nausea, vomiting, diarrhea, constipation, melena, hematochezia GENITOURINARY: Absent: dysuria, frequency, urgency, hesitancy, hematuria, flank pain, genital pain MUSCULOSKELETAL: Absent: myalgia, arthralgia, joint swelling, back pain, neck pain SKIN: Absent: rash, itching, pallor HEMATOLOGIC/IMMUNOLOGIC: Absent: easy bleeding, easy bruising, lymphadenopathy, frequent infections ENDOCRINE: Absent: unexplained weight gain, unexplained weight loss, heat intolerance, cold intolerance NEUROLOGIC: Absent: headache, focal weakness or paresthesias, dizziness, unsteady gait, seizure, mental status changes, bladder or bowel incontinence PSYCHIATRIC: Absent: anxiety, depression, suicidal or homicidal ideation, hallucinations. PHYSICAL EXAMINATION Vital Signs - 24 hr 06/17/17 14:02 Temperature 98.4 F Pulse Rate 98 H Respiratory 18 Rate Blood Pressure 147/98 O2 Sat by Pulse 98 Oximetry (%) GENERAL: Awake, alert, and fully oriented, in no acute distress. HEAD: Normal with no signs of trauma. EYES: , sclera anicteric, conjunctiva clear. EARS, NOSE, THROAT: Moist mucous membranes. NECK: Normal range of motion.supple LUNGS: Breath sounds equal, clear to auscultation bilaterally. No wheezes, and no crackles. No accessory muscle use. HEART: Regular rate and rhythm, normal S1 and S2 without murmur, rub or gallop. ABDOMEN: Soft, distended, normoactive bowel sounds, painful on palpation in mid- epigastrium. No hepatomegaly LOWER EXTREMITIES: 2+ pulses, warm, well-perfused. No calf tenderness. No peripheral edema. SKIN: Warm, dry, no rashes or lesions noted, normal capillary refill. Laboratory Results - last 24 hr 06/17/17 06/17/17 06/17/17 17:11 17:11 17:11 WBC 22.5 H D RBC 4.98 Hgb 13.0 D Hct 40.6 MCV 81.5 MCH 26.1 MCHC 32.0 RDW 19.4 H Plt Count 270 MPV 8.5 Total Counted 100 Neutrophils % No Result Required. Neutrophils % (Manual) 72.0 Band Neutrophils % 2.0 Lymphocytes % No Result Required. Lymphocytes % (Manual) 23.0 D Monocytes % (Manual) 3 L Hypochromia 2+ Anisocytosis 1+ Microcytosis 1+ PT with INR 9.50 L INR 0.84 L Sodium Cancelled Potassium Cancelled Chloride Cancelled Carbon Dioxide Cancelled Anion Gap Cancelled BUN Cancelled Creatinine Cancelled Creat Clearance w eGFR Cancelled Random Glucose Cancelled Lactic Acid Calcium Cancelled Magnesium Total Bilirubin Cancelled AST Cancelled ALT Cancelled Alkaline Phosphatase Cancelled Creatine Kinase Troponin I Total Protein Cancelled Albumin Cancelled Lipase 06/17/17 06/17/17 06/17/17 17:11 17:11 17:21 WBC RBC Hgb Hct MCV MCH MCHC RDW Plt Count MPV Total Counted Neutrophils % Neutrophils % (Manual) Band Neutrophils % Lymphocytes % Lymphocytes % (Manual) Monocytes % (Manual) Hypochromia Anisocytosis Microcytosis PT with INR INR Sodium Potassium Chloride Carbon Dioxide Anion Gap BUN Creatinine Creat Clearance w eGFR Random Glucose Lactic Acid 2.0 Calcium Magnesium Total Bilirubin AST ALT Alkaline Phosphatase Creatine Kinase Cancelled Troponin I Cancelled Total Protein Albumin Lipase Cancelled 06/17/17 19:09 WBC RBC Hgb Hct MCV MCH MCHC RDW Plt Count MPV Total Counted Neutrophils % Neutrophils % (Manual) Band Neutrophils % Lymphocytes % Lymphocytes % (Manual) Monocytes % (Manual) Hypochromia Anisocytosis Microcytosis PT with INR INR Sodium 139 Potassium 4.2 Chloride 104 Carbon Dioxide 27 D Anion Gap 8 BUN 14 Creatinine 0.8 Creat Clearance w eGFR > 60 Random Glucose 113 H Lactic Acid Calcium 8.0 L Magnesium 2.4 D Total Bilirubin 1.1 H D AST 14 L D ALT 44 D Alkaline Phosphatase 61 Creatine Kinase 190 Troponin I 0.18 H Total Protein 6.4 Albumin 3.1 L Lipase 128 CBC, BMP 06/17/17 17:11 06/17/17 19:09 CXR: pulmonary vascular congestion, no effusion, no consolidation . EKG EKG: NSR 94 QtC 470, Q qwaves inferior leads.left axis deviation, 10/20- Ef 55 ASSESSMENT/PLAN: 62 y/o F with PMHx asthma, COPD, HTN, HLD, CAD s/p stent x 1 (2013), CHF, [place] presented to ED with complaint of severe 10/10 abdominal pain. was found to have elevated trop and was admitted to telemetry for further evaluation and treatment. # Elevated Trop * Trend Tro , EKG * Nitroglycerine PRN for chest pain, * O2 * Lipid panel * HgBA1c * ECHO cardiogram * Heart score 7 * # Abdominal pain Gastroenteritis vs steroid induced colitis vs food poisoning * NPO * Gentle IV fluids NS @42CC/hr * pepcid * Protonix 40 po daily * CT abdomen reviewed * Flagyl 500 Mg PO TID * Ceftriaxone 1gm IVBP daily * Stool ove and parasytes * C.diff toxain assays * stool cx # Leuckocytosis * WBC 22.5 likely 2/2 steroid use * # Elevated Blood sugar * Glu 270 on admission * BGM Q4hr * ISS * HgbA1c # HTN * continue home meds lasix 20 po, valsartan 80 po daily. #HLD * continue pravastain 20 mg po daily # Asthma/ COPD * continue home meds Symbicort * continue steroid 20 mg po tomorrow * day yeam please taper her steroids * O2 @ 2L as needed to keep O2 sat >92 % # Morbid obesity * BMI 53.1 * counselled #CAD S/p Stent 2013 * continue home meds plavix 75 mg po daily * continue Deltiazim 240 po daily * #FEN * Gentle hydration NS @42 CC/hr * E: WNL * N: NPO till CT abdomen result # proph * DVTs SCDS, hep 5000 SQ Q8hr * GI: Protonix 40 po daily # Dispo * Admit ot med tele #code * Full code Visit type - Emergency Visit Emergency Visit: Yes ED Registration Date: 06/17/17 Care time: The patient presented to the Emergency Department on the above date and was hospitalized for further evaluation of their emergent condition. - New Patient This patient is new to me today: Yes Date on this admission: 06/17/17 - Critical Care Critical Care patient: No
--- NOTE | 2017-06-17 21:19 | PN ---
Teaching Attending Note Name of Resident: Forest Ramírez ATTENDING PHYSICIAN STATEMENT I saw and evaluated the patient. I reviewed the resident's note and discussed the case with the resident. I agree with the resident's findings and plan as documented. SUBJECTIVE: 62 F with pmhx of CAD, NH X2 in (), HTN, NH s/p Stent, Ashtma, Bronchitis and COPD who presents with abdominal pain since last night. States sha had associated nausea, that has been intermittent in nature. Pain has been cramping , and had increased in intensity. She was recently admitted and d/c'd on 06/08 for COPD Exacerbation/bronchitis and finished a course of Augmentin. No fevers or chills. States she has been on a dose of Prednisone. Denies any chest pain, pressure or shortness of breath. OBJECTIVE: Physical: VS: Vital Signs Period Temp Pulse Resp BP Sys/Zaman Pulse Ox Last 24 Hr 98.4 F 98 18 147/98 98 GEN: NAD, Resting in bed, AA0X3 HEENT: NCAT, PERRL, Throat without erythema or exudates CARD: RRR S1, S2 RESP: CTAB ABD: Mild distension, BSx4, NTD to palpation EXT: - C/C/E CBCD Allergies Allergy/AdvReac Type Severity Reaction Status Date / Time ciprofloxacin [From Cipro] Allergy Intermediate anaphylaxis Verified 06/17/17 14 :05 ciprofloxacin HCl Allergy Intermediate anaphylaxis Verified 06/17/17 14:05 [From Cipro] Iodinated Contrast- Oral and Allergy Intermediate anaphylaxis Verified 06/17/17 14:05 IV Dye lactose Allergy Intermediate Verified 06/17/17 14:05 WBC 22.5 K/mm3 (4.0-10.0) H D 06/17/17 17:11 RBC 4.98 M/mm3 (3.60-5.2) 06/17/17 17:11 Hgb 13.0 GM/dL (10.7-15.3) D 06/17/17 17:11 Hct 40.6 % (32.4-45.2) 06/17/17 17:11 MCV 81.5 fl (80-96) 06/17/17 17:11 MCHC 32.0 g/dl (32.0-36.0) 06/17/17 17:11 RDW 19.4 % (11.6-15.6) H 06/17/17 17:11 Plt Count 270 K/MM3 (134-434) 06/17/17 17:11 MPV 8.5 fl (7.5-11.1) 06/17/17 17:11 CMP Sodium 139 mmol/L (136-145) 06/17/17 19:09 Potassium 4.2 mmol/L (3.5-5.1) 06/17/17 19:09 Chloride 104 mmol/L (98-107) 06/17/17 19:09 Carbon Dioxide 27 mmol/L (21-32) D 06/17/17 19:09 Anion Gap 8 (8-16) 06/17/17 19:09 BUN 14 mg/dL (7-18) 06/17/17 19:09 Creatinine 0.8 mg/dL (0.55-1.02) 06/17/17 19:09 Creat Clearance w eGFR > 60 (>60) 06/17/17 19:09 Calcium 8.0 mg/dL (8.5-10.1) L 06/17/17 19:09 Total Bilirubin 1.1 mg/dL (0.2-1.0) H D 06/17/17 19:09 AST 14 U/L (15-37) L D 06/17/17 19:09 ALT 44 U/L (12-78) D 06/17/17 19:09 Alkaline Phosphatase 61 U/L (45-117) 06/17/17 19:09 Total Protein 6.4 g/dl (6.4-8.2) 06/17/17 19:09 Albumin 3.1 g/dl (3.4-5.0) L 06/17/17 19:09 Home Medications Medication Instructions Recorded Clopidogrel Bisulfate [Clopidogrel] 75 mg PO DAILY 10/28/15 Valsartan [Diovan] 80 mg PO DAILY 10/28/15 Diltiazem Cd [Cardizem Cd -] 240 mg PO DAILY 03/26/16 Furosemide [Lasix -] 20 mg PO DAILY 03/26/16 Pravastatin Sodium 20 mg PO DAILY 03/26/16 Budesonide/Formeterol Fumarate 2 puff IH BID inhaler 06/08/17 [SYMBICORT 160/4.5mcg -] Prednisone [Deltasone -] 0 mg PO DAILY 06/17/17 CXR- Mild pulm. vasc. congestion. No airspace consolidation or plueral effusion EKG: NSR 94 QtC 470, Q qwaves inferior leads. 10/20- Ef 55 CT ABD- Numerous fluid filled, mildly distended loops of small bowel measuring up to 3.2 cm with no discrete transition point through the terminal ileum, May be attributed to Enteritis. Increased attenuation of the mesenteric fat with fluid along the vasa recta and free fluid within the abdomen/pelvis is presumably reactive. Distal colon is collapsed from the splenic flexure through the rectum. ASSESSMENT AND PLAN: 62 F with pmhx of CAD, NH X2 in (), HTN, NH s/p Stent, Ashtma, Bronchitis and COPD who presents with abdominal pain since last night, being admitted for Intractable abdominal pain and elevated troponin. 1.) Elevated Troponin - Demand Vs. RO ACS - HEART 7 - Trend Trop/EKG - Echo - Lipid Panel - HgA1c 2.) Enteritis - Ceftriaxone/Flagyl - Cx's - Congestion on CXR- would hold of IVF for now 4.) Hx. OF CAD - C/W Home Meds 5.) COPD - C/W home neds - C/W PRed taper and nebs/Symbicirt 5.) Dvt PPX - Heparin 5000 q8 Med-Tele
[2017-06-17 21:52] LABS: URINE LEUK ESTERASE 3+ (NEGATIVE)
[2017-06-17] MEDS ORDERED: METOCLOPRAMIDE HCL INJECTION 10 MG/2 ML VIAL IVPUSH PRN (21:57)
[2017-06-17] MEDS ORDERED: SODIUM CHLORIDE 1,000 ML IV SCH (22:00)
[2017-06-17] MEDS ORDERED: ASPIRIN 81 MG CHEWABLE TABLETS ONE (23:39)
[2017-06-17] MEDS ORDERED: PANTOPRAZOLE 40 MG TABLET (FP) ONE (23:40)
[2017-06-18 00:18] LABS: EPI CELLS MODERATE /HPF (FEW); URINE BACTERIA RARE /hpf (NONE SEEN); URINE MUCUS RARE
[2017-06-18] MEDS: PANTOPRAZOLE 40 MG TABLET (FP) PO SCH ×2 (00:39→11:18)
[2017-06-18] MEDS: BUDESONIDE/FORMETEROL FUMARATE 160/4.5 mcg INHALER IH SCH ×3 (02:33→23:39)
[2017-06-18 03:01] LABS: CHOLESTEROL 263 mg/dL (50-200); HDL CHOLESTEROL 131 mg/dL (40-60); LDL CHOLESTEROL (ONLY SJRH) 103 mg/dL (5-100); TRIGLYCERIDES 261 mg/dL (35-160)
[2017-06-18] MEDS ORDERED: morphine CARPU-JECT 10 MG/1 ML DISP.SYRIN ONE ×3 (05:54→16:25)
[2017-06-18] MEDS: morphine CARPU-JECT 10 MG/1 ML DISP.SYRIN IVPUSH PRN ×3 (05:58→16:27)
[2017-06-18] MEDS ORDERED: HEPARIN NA (PORCINE) 5,000 UNITS/ML 1ML VIAL ONE (06:58)
[2017-06-18] MEDS ORDERED: metroNIDAZOLE 250 MG TABLET ONE (06:58)
[2017-06-18] MEDS: metroNIDAZOLE 250 MG TABLET PO SCH ×3 (07:05→23:35)
[2017-06-18] MEDS: HEPARIN NA (PORCINE) 5,000 UNITS/ML 1ML VIAL SQ SCH ×4 (07:05→23:34)
[2017-06-18 08:40] LABS: BASO % 0.8 % (0-2.0); EOS % 1.6 % (0-4.5); HEMATOCRIT 33.5 % (32.4-45.2); HEMOGLOBIN 10.7 GM/dL (10.7-15.3); LYMPH % 24.8 % (8-40); MCH 26.1 pg (25.7-33.7); MCHC 31.9 g/dl (32.0-36.0); MEAN CELL VOLUME 81.9 fl (80-96); MEAN PLT VOLUME 8.5 fl (7.5-11.1); MONO % 3.4 % (3.8-10.2); NEUT % 69.4 % (42.8-82.8); PLATELET COUNT 220 K/MM3 (134-434); RBC 4.09 M/mm3 (3.60-5.2); WHITE BLOOD COUNT 14.5 K/mm3 (4.0-10.0)
[2017-06-18 08:51] LABS: ALBUMIN 2.9 g/dl (3.4-5.0); ANION GAP 10 (8-16); BLOOD UREA NITROGEN 12 mg/dL (7-18); CHLORIDE 103 mmol/L (98-107); CO2 27 mmol/L (21-32); CREATININE 0.9 mg/dL (0.55-1.02); GLUCOSE,RANDOM 107 mg/dL (74-106); LIPASE 112 U/L (73-393); SGOT/AST 18 U/L (15-37); SGPT/ALT 35 U/L (12-78); SODIUM 140 mmol/L (136-145); TOT PROT 5.8 g/dl (6.4-8.2)
[2017-06-18 08:55] LABS: ALK PHOS 52 U/L (45-117); AMYLASE 246 U/L (25-115); BILIRUBIN,TOTAL 1.2 mg/dL (0.2-1.0); MAGNESIUM 2.4 mg/dL (1.8-2.4)
[2017-06-18] MEDS ORDERED: predniSONE 20 MG TABLET (UD) PO ONE (09:00)
[2017-06-18 09:32] LABS: CHOLESTEROL 231 mg/dL (50-200); HDL CHOLESTEROL 109 mg/dL (40-60); LDL CHOLESTEROL (ONLY SJRH) 88 mg/dL (5-100); TRIGLYCERIDES 215 mg/dL (35-160)
--- NOTE | 2017-06-18 09:59 | EKG ---
Test Reason : Blood Pressure : / mmHG Vent. Rate : 088 BPM Atrial Rate : 088 BPM P-R Int : 182 ms QRS Dur : 084 ms QT Int : 392 ms P-R-T Axes : 071 -23 090 degrees QTc Int : 474 ms NORMAL SINUS RHYTHM INFERIOR INFARCT (CITED ON OR BEFORE 17-JUN-2017) t NONSPECIFIC T WAVE ABNORMALITY ABNORMAL ECG WHEN COMPARED WITH ECG OF 17-JUN-2017 17:12, NO SIGNIFICANT CHANGE WAS FOUND Confirmed by MD ARLENE, JANA ([id number]) on 06/18/2017 9:59:44 AM Referred By: Confirmed By:JANA JACOBS MD
[2017-06-18] MEDS ORDERED: CEFTRIAXONE 1 GM in DEXTROSE 5%-WATER - 50 ML IVPB SCH (10:00)
--- NOTE | 2017-06-18 10:03 | PN ---
Progress Note, Physician Chief Complaint: Abdominal Pain History of Present Illness: NAD - Current Medication List Current Medications: Active Medications Atorvastatin Calcium (Lipitor -) 10 mg PO HS [facility] Budesonide/Formoterol Fumarate (Symbicort 160/4.5mcg -) 2 puff IH BID [facility] Last Admin: 06/18/17 02:33 Dose: Not Given Clopidogrel Bisulfate (Plavix -) 75 mg PO DAILY [facility] Diltiazem HCl (Cardizem Cd -) 240 mg PO DAILY [facility] Furosemide (Lasix -) 20 mg PO DAILY [facility] Heparin Sodium (Porcine) (Heparin -) 5,000 unit SQ TID [facility] Last Admin: 06/18/17 07:05 Dose: 5,000 unit CEFTRIAXONE 1 G/50 ML PREMIX (Ceftriaxone 1 Gm-D5w Bag) 50 mls @ 100 mls/hr IVPB DAILY [facility] Metoclopramide HCl (Reglan Injection -) 10 mg IVPUSH Q6H PRN PRN Reason: NAUSEA AND/OR VOMITING Metronidazole (Flagyl -) 500 mg PO TID [facility] Last Admin: 06/18/17 07:05 Dose: 500 mg Morphine Sulfate (Morphine Injection -) 1 mg IVPUSH Q4H PRN PRN Reason: PAIN LEVEL 1-5 Last Admin: 06/18/17 05:58 Dose: 1 mg Pantoprazole Sodium (Protonix -) 40 mg PO DAILY [facility] Last Admin: 06/18/17 00:39 Dose: 40 mg Valsartan (Diovan -) 80 mg PO DAILY [facility] - Objective Vital Signs: Vital Signs Temperature 98.4 F 06/17/17 14:02 Pulse Rate 85 06/18/17 06:57 Respiratory Rate 16 06/18/17 06:57 Blood Pressure 146/84 06/18/17 06:57 O2 Sat by Pulse Oximetry (%) 97 06/18/17 06:57 Constitutional: Yes: Well Nourished, No Distress, Calm Cardiovascular: Yes: Regular Rate and Rhythm Respiratory: Yes: Regular Musculoskeletal: Yes: WNL Extremities: Yes: WNL Edema: No Peripheral Pulses WNL: Yes Neurological: Yes: Alert, Oriented Psychiatric: Yes: Alert, Oriented Labs: CBC, BMP 06/18/17 08:05 06/18/17 08:05 INR, PTT INR 0.84 (0.82-1.09) L 06/17/17 17:11 Problem List - Problems (1) Abdominal pain Assessment/Plan: -GI consult -NPO -IV abx -CT abdomen: 1. Numerous fluid-filled, mildly distended loops of small bowel measuring up to 3.2 cm in diameter with no discrete transition point through the terminal ileum. These findings may be attributed to a nonspecific infectious/ inflammatory enteritis. Increased attenuation of the mesenteric fat with fluid along the vasa recta and free fluid within the abdomen/pelvis is presumably reactive. Distal colon is collapsed from the splenic flexure through the rectum. Follow-up imaging of the abdomen after administration of oral contrast is recommended to exclude obstruction. 2. Cholelithiasis. No CT evidence of acute cholecystitis. 3. Status post sleeve gastrectomy. Small hiatal hernia. 4. Very small pericardial effusion. Code(s): R10.9 - UNSPECIFIED ABDOMINAL PAIN (2) History of gastric restrictive surgery Code(s): Z98.84 - BARIATRIC SURGERY STATUS (3) ASHD (arteriosclerotic heart disease) Code(s): I25.10 - ATHSCL HEART DISEASE OF [place] CORONARY ARTERY W/O ANG PCTRS (4) Elevated troponin Assessment/Plan: -secondary to albuterol usage -at her baseline -cardiology input Code(s): R74.8 - ABNORMAL LEVELS OF OTHER SERUM ENZYMES (5) Leukocytosis Assessment/Plan: -secondary to recent steroid use Code(s): D72.829 - ELEVATED WHITE BLOOD CELL COUNT, UNSPECIFIED Assessment/Plan see problem list
--- NOTE | 2017-06-18 10:11 | EKG ---
Test Reason : Blood Pressure : / mmHG Vent. Rate : 094 BPM Atrial Rate : 094 BPM P-R Int : 172 ms QRS Dur : 084 ms QT Int : 376 ms P-R-T Axes : 073 -42 086 degrees QTc Int : 470 ms NORMAL SINUS RHYTHM LEFT AXIS DEVIATION INFERIOR INFARCT , AGE UNDETERMINED ABNORMAL ECG Confirmed by MD ARLENE, JANA ([id number]) on 06/18/2017 10:11:17 AM Referred By: Confirmed By:JANA JACOBS MD
[2017-06-18] MEDS ORDERED: predniSONE 20 MG TABLET (UD) ONE (11:17)
[2017-06-18] MEDS: CEFTRIAXONE 1 G/50 ML PREMIX 50 ML IVPB SCH (11:18)
[2017-06-18] MEDS: VALSARTAN 80 MG TABLET (UD) PO SCH (11:18)
[2017-06-18] MEDS: FUROSEMIDE 20 MG TABLET (FP) PO SCH (11:18)
[2017-06-18] MEDS: CLOPIDOGREL BISULFATE 75 MG TABLET (FP) PO SCH (11:18)
--- NOTE | 2017-06-18 15:04 | CON.CARD ---
Consult Consult Specialty:: Cardiology Referred by:: KEVIN Gong Reason for Consultation:: CAD s/p FL, PCI - History of Present Illness Chief Complaint: Abd pain History of Present Illness: 62 F with pmhx of CAD, [place] s/p Stent, HTN, chol. Asthma, Bronchitis and COPD post recent flare who presented with crampy epigastric pain increasing intensity since last night with associated nausea. She was recently admitted and d/c'd on 06/08 for COPD Exacerbation/bronchitis and finished a course of Augmentin. No fevers or chills or loose stools. States she has been on a dose of Prednisone. Denies any chest pain, pressure or shortness of breath, palpitations, near or true syncope. - History Source History Provided By: Patient Limitations to Obtaining History: No Limitations - Past Medical History Cardio/Vascular: Yes: CAD, HTN, [place] (s/p stent), Other. 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 History of Recent Travel: No Home Medications - Allergies Allergies/Adverse Reactions: Allergies Allergy/AdvReac Type Severity Reaction Status Date / Time ciprofloxacin [From Cipro] Allergy Intermediate anaphylaxis Verified 06/17/17 14 :05 ciprofloxacin HCl Allergy Intermediate anaphylaxis Verified 06/17/17 14:05 [From Cipro] Iodinated Contrast- Oral and Allergy Intermediate anaphylaxis Verified 06/17/17 14:05 IV Dye lactose Allergy Intermediate Verified 06/17/17 14:05 - Home Medications Home Medications: Ambulatory Orders Clopidogrel Bisulfate [Clopidogrel] 75 mg PO DAILY 10/28/15 Valsartan [Diovan] 80 mg PO DAILY 10/28/15 Diltiazem Cd [Cardizem Cd -] 240 mg PO DAILY 03/26/16 Furosemide [Lasix -] 20 mg PO DAILY 03/26/16 Pravastatin Sodium 20 mg PO DAILY 03/26/16 Budesonide/Formeterol Fumarate [SYMBICORT 160/4.5mcg -] 2 puff IH BID inhaler 06/08/17 Prednisone [Deltasone -] 0 mg PO DAILY 06/17/17 Family Disease History - Family Disease History Family Disease History: Diabetes: Mother Review of Systems - Review of Systems Gastrointestinal: reports: Abdominal Pain - Risk Factors Known Risk Factors: Yes: Prior FL /Emb Stroke Vital Signs: Vital Signs Temperature 98.7 F 06/18/17 10:00 Pulse Rate 88 06/18/17 10:00 Respiratory Rate 20 06/18/17 10:00 Blood Pressure 152/88 06/18/17 10:00 O2 Sat by Pulse Oximetry (%) 96 06/18/17 10:00 Constitutional: Yes: No Distress, Calm Neck: Yes: Supple Respiratory: Yes: Regular, CTA Bilaterally Gastrointestinal: Yes: Soft, Abdomen, Obese, Hypoactive Bowel Sounds, Tenderness , Epigastrium Cardiovascular: Yes: Regular Rate and Rhythm JVD: No Carotid Bruit: No Heart Sounds: Yes: S1, S2 Edema: No - Other Data Labs, Other Data: CBC, BMP 06/18/17 08:05 06/18/17 08:05 INR, PTT INR 0.84 (0.82-1.09) L 06/17/17 17:11 Troponin, BNP 06/17/17 06/17/17 06/18/17 17:11 19:09 06:00 Troponin I Cancelled 0.18 H Cancelled 06/18/17 08:05 Troponin I 0.17 H Troponin, BNP 06/17/17 06/17/17 06/18/17 17:11 19:09 06:00 Troponin I Cancelled 0.18 H Cancelled 06/18/17 08:05 Troponin I 0.17 H NSR inferior infarct Prior Cardiac Procedures: PTCA with Stent Ejection Fraction %: LVEF > or = 40 % Imaging - Results Chest X-ray: Report Reviewed (Mild congestion) Cat Scan: Report Reviewed (CT abdomen: 1. Numerous fluid-filled, mildly distended loops of small bowel measuring up to 3.2 cm in diameter with no discrete transition point through the terminal ileum. These findings may be attributed to a nonspecific infectious/inflammatory enteritis. Increased attenuation of the mesenteric fat with fluid along the vasa recta and free fluid within the abdomen/pelvis is presumably reactive. Distal colon is collapsed from the splenic flexure through the rectum. Follow-up imaging of the abdomen after administration of oral contrast is recommended to exclude obstruction. 2. Cholelithiasis. No CT evidence of acute cholecystitis. 3. Status post sleeve gastrectomy. Small hiatal hernia. 4. Very small pericardial effusion.) EKG: Report Reviewed (NSR inferior Qs) Problem List - Problems (1) Demand ischemia Code(s): I24.8 - OTHER FORMS OF ACUTE ISCHEMIC HEART DISEASE (2) Enteritis Code(s): K52.9 - NONINFECTIVE GASTROENTERITIS AND COLITIS, UNSPECIFIED (3) Abdominal pain Code(s): R10.9 - UNSPECIFIED ABDOMINAL PAIN Qualifiers: Abdominal location: epigastric Qualified Code(s): R10.13 - Epigastric pain (4) History of gastric restrictive surgery Code(s): Z98.84 - BARIATRIC SURGERY STATUS (5) Leukocytosis Code(s): D72.829 - ELEVATED WHITE BLOOD CELL COUNT, UNSPECIFIED Qualifiers: Leukocytosis type: unspecified Qualified Code(s): D72.829 - Elevated white blood cell count, unspecified (6) Asthma Code(s): J45.909 - UNSPECIFIED ASTHMA, UNCOMPLICATED (7) Elevated troponin Code(s): R74.8 - ABNORMAL LEVELS OF OTHER SERUM ENZYMES (8) Hypercholesterolemia Code(s): E78.0 - PURE HYPERCHOLESTEROLEMIA * DO NOT USE * (9) Hypertension Code(s): I10 - ESSENTIAL (PRIMARY) HYPERTENSION Qualifiers: Hypertension type: essential hypertension Qualified Code(s): I10 - Essential (primary) hypertension (10) Status post coronary artery stent placement Code(s): Z95.5 - PRESENCE OF CORONARY ANGIOPLASTY IMPLANT AND GRAFT (11) Old myocardial infarction Code(s): I25.2 - OLD MYOCARDIAL INFARCTION (12) ASHD (arteriosclerotic heart disease) Code(s): I25.10 - ATHSCL HEART DISEASE OF [place] CORONARY ARTERY W/O ANG PCTRS Assessment/Plan 1. Abd pain referable to acute enteritis etiology to be determined 2. CAD post NSTEMI post PCI/stent angina pectoris with evidence of demand ischemic injury 3. Diastolic LV dysfunction with class 0-I NYHA classification LV failure, compensated/euvolemic 4. Recent bronchial asthma/reactive airway disease exacerbation 5. HTN 6. Hypercholesterolemia PLAN: 1. Trops have peaked, continue Cardizem CD 240 qd and Diovan 80 qd and titrate accordingly 2. Continue Lipitor 10 qd 3. Continue Plavix 75 qd 4. Bowel rest on clear liquid diet, empiric abx, GI eval pending, f/u stool studies 5. Thank you for consultatuve opportunity, F/U with me in office after discharge
[2017-06-18] MEDS ORDERED: LACTATED RINGERS SOLUTION 1,000 ML/1,000 ML INFUS.BAG IV SCH (15:30)
--- NOTE | 2017-06-18 16:11 | CONSULT ---
Consult Consult Specialty:: general surgery Referred by:: Helena Garcia Reason for Consultation:: small bowel obstruction post sleeve gastrectomy - History of Present Illness Chief Complaint: abdominal pain History of Present Illness: 62 y/o F with PMHx Morbid obesity s/p lapband, the removal and revision sleeve gastrectomy at [facility] ~2011(she no longer follows with surgeon, has been non-compliant with dietary restrictions, and after 90wt loss has regained >60lbs) , asthma, COPD, HTN, HLD, CAD s/p stent x 1 (2013), CHF, [place] presented to ED with complaint of severe abdominal pain. Pain was focal to mid abdomen, pain is crampy, rated 10/10 at its worse, better now. Associated with dry heaves and severe nausea, no emesis, clear spit-up only. She denied ever having pain like this previously. She reported a normal BM last night but had no bowel movement today, she is passing "a lot" of flatus but is also belching. She has had no emesis. She denies fever and chills. Last meal was yesterday evening when she ate stuffed mushrooms. We were asked to assess. - History Source History Provided By: Patient Limitations to Obtaining History: No Limitations - Past Medical History Cardio/Vascular: Yes: CAD, HTN, [place] (s/p stent), Other. 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 History of Recent Travel: No Home Medications - Allergies Allergies/Adverse Reactions: Allergies Allergy/AdvReac Type Severity Reaction Status Date / Time ciprofloxacin [From Cipro] Allergy Intermediate anaphylaxis Verified 06/17/17 14 :05 ciprofloxacin HCl Allergy Intermediate anaphylaxis Verified 06/17/17 14:05 [From Cipro] Iodinated Contrast- Oral and Allergy Intermediate anaphylaxis Verified 06/17/17 14:05 IV Dye lactose Allergy Intermediate Verified 06/17/17 14:05 - Home Medications Home Medications: Ambulatory Orders Clopidogrel Bisulfate [Clopidogrel] 75 mg PO DAILY 10/28/15 Valsartan [Diovan] 80 mg PO DAILY 10/28/15 Diltiazem Cd [Cardizem Cd -] 240 mg PO DAILY 03/26/16 Furosemide [Lasix -] 20 mg PO DAILY 03/26/16 Pravastatin Sodium 20 mg PO DAILY 03/26/16 Budesonide/Formeterol Fumarate [SYMBICORT 160/4.5mcg -] 2 puff IH BID inhaler 06/08/17 Prednisone [Deltasone -] 0 mg PO DAILY 06/17/17 Family Disease History - Family Disease History Family Disease History: Diabetes: Mother Review of Systems - Review of Systems Constitutional: denies: Chills, Fever, Unintentional Wgt. Loss Eyes: denies: Blind Spots, Recent Change in Vision HENT: reports: Difficult Swallowing. denies: Throat Pain Neck: denies: Pain on Movement, Tenderness Cardiovascular: denies: Chest Pain, Palpitations Respiratory: denies: Cough, SOB Gastrointestinal: reports: Abdominal Pain, Bloating, Nausea Genitourinary: denies: Burning, Discharge, Dysuria, Incontinence Musculoskeletal: denies: Muscle Pain, Muscle Cramps Integumentary: denies: Lesions, Rash Neurological: denies: Change in LOC, Syncope Endocrine: reports: Increased Hunger, Unexplained Weight Gain Hematology/Lymphatic: denies: Easily Bruised, Excessive Bleeding Psychiatric: denies: Anxiety, Depression Pain Intensity: 5 Physical Exam Vital Signs: Vital Signs Temperature 98.7 F 06/18/17 10:00 Pulse Rate 88 06/18/17 10:00 Respiratory Rate 20 06/18/17 10:00 Blood Pressure 152/88 06/18/17 10:00 O2 Sat by Pulse Oximetry (%) 96 06/18/17 10:00 Vital Signs Period Temp Pulse Resp BP Sys/Zaman Pulse Ox Last 24 Hr 98.7 F 85-88 16-20 146-152/84-88 96-97 Constitutional: Yes: Calm, Mild Distress, Obese Eyes: Yes: Conjunctiva Clear, EOM Intact HENT: Yes: Atraumatic, Normocephalic Neck: Yes: Supple, Trachea Midline Cardiovascular: Yes: Regular Rate and Rhythm, S1, S2. No: Murmur Respiratory: Yes: Regular, CTA Bilaterally, SOB on Exertion. No: Cough Gastrointestinal: Yes: Normal Bowel Sounds, Soft, Abdomen, Obese, Tenderness, Tenderness, Epigastrium. No: Hernia, Tenderness, Rebound, Vomiting ...Rectal Exam: Yes: Deferred Renal/: No: CVA Tenderness - Left, CVA Tenderness - Right Musculoskeletal: No: Muscle Pain, Muscle Weakness Extremities: No: Cool, Cyanosis Edema: No Peripheral Pulses WNL: Yes Integumentary: No: Bruising, Jaundice, Rash Wound/Incision: Yes: Well Approximated, Other (healed upper abdominal wounds no hernias detected) Neurological: Yes: Alert, Oriented Psychiatric: Yes: Alert, Oriented Labs: CBC, BMP 06/18/17 08:05 06/18/17 08:05 CBC,CMP WBC 14.5 K/mm3 (4.0-10.0) H D 06/18/17 08:05 RBC 4.09 M/mm3 (3.60-5.2) 06/18/17 08:05 Hgb 10.7 GM/dL (10.7-15.3) D 06/18/17 08:05 Hct 33.5 % (32.4-45.2) D 06/18/17 08:05 MCV 81.9 fl (80-96) 06/18/17 08:05 MCH 26.1 pg (25.7-33.7) 06/18/17 08:05 MCHC 31.9 g/dl (32.0-36.0) L 06/18/17 08:05 RDW 20.0 % (11.6-15.6) H 06/18/17 08:05 Plt Count 220 K/MM3 (134-434) 06/18/17 08:05 MPV 8.5 fl (7.5-11.1) 06/18/17 08:05 Total Counted 100 06/17/17 17:11 Neutrophils % 69.4 % (42.8-82.8) D 06/18/17 08:05 Neutrophils % (Manual) 72.0 % (42.8-82.8) 06/17/17 17:11 Band Neutrophils % 2.0 % 06/17/17 17:11 Lymphocytes % 24.8 % (8-40) D 06/18/17 08:05 Lymphocytes % (Manual) 23.0 % (8-40) D 06/17/17 17:11 Monocytes % 3.4 % (3.8-10.2) L 06/18/17 08:05 Monocytes % (Manual) 3 % (3.8-10.2) L 06/17/17 17:11 Eosinophils % 1.6 % (0-4.5) D 06/18/17 08:05 Basophils % 0.8 % (0-2.0) 06/18/17 08:05 Hypochromia 2+ 06/17/17 17:11 Anisocytosis 1+ 06/17/17 17:11 Microcytosis 1+ 06/17/17 17:11 Sodium 140 mmol/L (136-145) 06/18/17 08:05 Potassium 4.0 mmol/L (3.5-5.1) 06/18/17 08:05 Chloride 103 mmol/L (98-107) 06/18/17 08:05 Carbon Dioxide 27 mmol/L (21-32) 06/18/17 08:05 Anion Gap 10 (8-16) 06/18/17 08:05 BUN 12 mg/dL (7-18) 06/18/17 08:05 Creatinine 0.9 mg/dL (0.55-1.02) 06/18/17 08:05 Creat Clearance w eGFR > 60 (>60) 06/18/17 08:05 Random Glucose 107 mg/dL (74-106) H 06/18/17 08:05 Hemoglobin A1c % 7.3 % (4.8-6.0) H D 06/17/17 22:22 Lactic Acid 2.0 mmol/L (0.4-2.0) 06/17/17 17:21 Calcium 8.0 mg/dL (8.5-10.1) L 06/18/17 08:05 Phosphorus 4.0 mg/dL (2.5-4.9) 06/18/17 08:05 Magnesium 2.4 mg/dL (1.8-2.4) 06/18/17 08:05 Total Bilirubin 1.2 mg/dL (0.2-1.0) H 06/18/17 08:05 AST 18 U/L (15-37) D 06/18/17 08:05 ALT 35 U/L (12-78) D 06/18/17 08:05 Alkaline Phosphatase 52 U/L (45-117) 06/18/17 08:05 Creatine Kinase 190 IU/L (26-192) 06/17/17 19:09 Creatine Kinase Index 3.4 % (0.0-5.0) 06/17/17 19:09 CK-MB (CK-2) 6.554 ng/mL (0.5-3.6) H 06/17/17 19:09 Troponin I 0.17 ng/ml (0.00-0.05) H 06/18/17 08:05 Total Protein 5.8 g/dl (6.4-8.2) L 06/18/17 08:05 Albumin 2.9 g/dl (3.4-5.0) L 06/18/17 08:05 Triglycerides 215 mg/dL (35-160) H 06/18/17 08:05 Cholesterol 231 mg/dL (50-200) H 06/18/17 08:05 Total LDL Cholesterol 88 mg/dL (5-100) 06/18/17 08:05 HDL Cholesterol 109 mg/dL (40-60) H 06/18/17 08:05 Total Amylase 246 U/L (25-115) H D 06/18/17 08:05 Lipase 112 U/L (73-393) 06/18/17 08:05 Imaging - Results Cat Scan: Report Reviewed, Image Reviewed Problem List - Problems (1) Abdominal pain Assessment/Plan: 62 yo female MMP COPD on steroids s/p multiple bariatric procedures with acute onset epigastric abdominal pain with nausea, no vomiting, passing flatus, CT scan shows dilated loops of SB 3cm which can be an expected finding several years after restrictive bariatric procedures as they fail, due to increase volume capacity over time. Possible partial SBO vs gastroenteritis, less suspicious for bowel ishemia. Atypical presentation of ACS? Strict NPO and IVF hydration R/O [place] and treat trend labs, repeat lactic acid after IVF bolus Adequate analgesia Call for assistance with NGT if emesis develops - Dr. Latham IV antiemetic CT Scan abdomen and pelvis/ with IV and PO contrast if there are ominous findings on repeat scan will consult Dr. Hardin, Bariatric Surgeon as he no longer follows with the surgeon at [facility] Will follow for serial exams Thank you for the opportunity to participate in the care of this patient. Code(s): R10.9 - UNSPECIFIED ABDOMINAL PAIN Qualifiers: Abdominal location: epigastric Qualified Code(s): R10.13 - Epigastric pain (2) COPD (chronic obstructive pulmonary disease) Code(s): J44.9 - CHRONIC OBSTRUCTIVE PULMONARY DISEASE, UNSPECIFIED Qualifiers: COPD type: unspecified COPD Qualified Code(s): J44.9 - Chronic obstructive pulmonary disease, unspecified (3) Obesity due to excess calories with serious comorbidity Code(s): E66.09 - OTHER OBESITY DUE TO EXCESS CALORIES Qualifiers: Obesity classification: adult class 3 (BMI >= 40) Body mass index: BMI 50.0 -59.9 Qualified Code(s): E66.01 - Morbid (severe) obesity due to excess calories; Z68.43 - Body mass index (BMI) 50-59.9 , adult; Z68.43 - Body mass index (BMI) 50-59.9 , adult; Z68.43 - Body mass index (BMI) 50-59.9 , adult; Z68.43 - Body mass index (BMI) 50-59.9 , adult (4) Chest pain Code(s): R07.9 - CHEST PAIN, UNSPECIFIED (5) Elevated troponin Code(s): R74.8 - ABNORMAL LEVELS OF OTHER SERUM ENZYMES (6) Hypercholesterolemia Code(s): E78.0 - PURE HYPERCHOLESTEROLEMIA * DO NOT USE * (7) Nausea Code(s): R11.0 - NAUSEA (8) Uncontrolled hypertension Code(s): I10 - ESSENTIAL (PRIMARY) HYPERTENSION
--- NOTE | 2017-06-18 17:19 | CON.GI ---
Consult Consult Specialty:: gastroenterology Reason for Consultation:: enteritis - History of Present Illness History of Present Illness: 62 y/oo F with PMH of gastric sleeve 2014,[place] 5 years ago was doing well untill yesterday when she was awakenned by 10/10 pain 4am in the morning which subsided with mylanta and Zantac. She was again awakened by the pain because of this she went to he ED. In ED her pain persisted. She received IV hydration. WBC was 24,000 associated with a normal lactic acid. Ct revealed dilated loops of small bowel with mesenteric stranding. SHe received a dose of morphine. - Past Medical History Cardio/Vascular: Yes: CAD, HTN, DC (s/p stent), Other. 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 History of Recent Travel: No Home Medications - Allergies Allergies/Adverse Reactions: Allergies Allergy/AdvReac Type Severity Reaction Status Date / Time ciprofloxacin [From Cipro] Allergy Intermediate anaphylaxis Verified 06/17/17 14 :05 ciprofloxacin HCl Allergy Intermediate anaphylaxis Verified 06/17/17 14:05 [From Cipro] Iodinated Contrast- Oral and Allergy Intermediate anaphylaxis Verified 06/17/17 14:05 IV Dye lactose Allergy Intermediate Verified 06/17/17 14:05 - Home Medications Home Medications: Ambulatory Orders Clopidogrel Bisulfate [Clopidogrel] 75 mg PO DAILY 10/28/15 Valsartan [Diovan] 80 mg PO DAILY 10/28/15 Diltiazem Cd [Cardizem Cd -] 240 mg PO DAILY 03/26/16 Furosemide [Lasix -] 20 mg PO DAILY 03/26/16 Pravastatin Sodium 20 mg PO DAILY 03/26/16 Budesonide/Formeterol Fumarate [SYMBICORT 160/4.5mcg -] 2 puff IH BID inhaler 06/08/17 Prednisone [Deltasone -] 0 mg PO DAILY 06/17/17 Family Disease History - Family Disease History Family Disease History: Diabetes: Mother Review of Systems - Review of Systems Constitutional: denies: Fever Eyes: denies: Blind Spots, Photophobia Neck: denies: Decreased ROM Cardiovascular: denies: Chest Pain Respiratory: denies: Cough Gastrointestinal: reports: Abdominal Pain. denies: Diarrhea, Dysphagia, Indigestion, Melena, Nausea, Vomiting Physical Exam-GI Vital Signs: Vital Signs Temperature 98.7 F 06/18/17 10:00 Pulse Rate 88 06/18/17 10:00 Respiratory Rate 20 06/18/17 10:00 Blood Pressure 152/88 06/18/17 10:00 O2 Sat by Pulse Oximetry (%) 97 06/18/17 13:58 Constitutional: Yes: Well Nourished Eyes: Yes: Conjunctiva Clear HENT: Yes: Atraumatic Neck: Yes: Supple Cardiovascular: Yes: Regular Rate and Rhythm Respiratory: Yes: CTA Bilaterally ...Palpate: Yes: Soft, Tenderness (--diffuse). No: Firm/Rigid, Guarding, Hepatomegaly, Splenomegaly Labs: CBC, BMP 06/18/17 08:05 06/18/17 08:05 INR, PTT INR 0.84 (0.82-1.09) L 06/17/17 17:11 CBCD WBC 14.5 K/mm3 (4.0-10.0) H D 06/18/17 08:05 RBC 4.09 M/mm3 (3.60-5.2) 06/18/17 08:05 Hgb 10.7 GM/dL (10.7-15.3) D 06/18/17 08:05 Hct 33.5 % (32.4-45.2) D 06/18/17 08:05 MCV 81.9 fl (80-96) 06/18/17 08:05 MCHC 31.9 g/dl (32.0-36.0) L 06/18/17 08:05 RDW 20.0 % (11.6-15.6) H 06/18/17 08:05 Plt Count 220 K/MM3 (134-434) 06/18/17 08:05 MPV 8.5 fl (7.5-11.1) 06/18/17 08:05 CMP Sodium 140 mmol/L (136-145) 06/18/17 08:05 Potassium 4.0 mmol/L (3.5-5.1) 06/18/17 08:05 Chloride 103 mmol/L (98-107) 06/18/17 08:05 Carbon Dioxide 27 mmol/L (21-32) 06/18/17 08:05 Anion Gap 10 (8-16) 06/18/17 08:05 BUN 12 mg/dL (7-18) 06/18/17 08:05 Creatinine 0.9 mg/dL (0.55-1.02) 06/18/17 08:05 Creat Clearance w eGFR > 60 (>60) 06/18/17 08:05 Calcium 8.0 mg/dL (8.5-10.1) L 06/18/17 08:05 Total Bilirubin 1.2 mg/dL (0.2-1.0) H 06/18/17 08:05 AST 18 U/L (15-37) D 06/18/17 08:05 ALT 35 U/L (12-78) D 06/18/17 08:05 Alkaline Phosphatase 52 U/L (45-117) 06/18/17 08:05 Total Protein 5.8 g/dl (6.4-8.2) L 06/18/17 08:05 Albumin 2.9 g/dl (3.4-5.0) L 06/18/17 08:05 Problem List - Problems (1) Dilated bowel Assessment/Plan: associated with mesenteric strandinng r/o secondary to mesenteric ischemia and SBO R> continue IV hydration, CT angio, keep NPO discussed case with Dr Sousa repeat CBC and lactic acid Code(s): [id number] -
[2017-06-18] MEDS ORDERED: LACTATED RINGERS SOLUTION 1000 ML INFUS.BAG IV ONE (19:00)
[2017-06-18] MEDS ORDERED: ELECTROLYTE-148 SOLN 1,000 ML IV ONE (19:00)
[2017-06-18] MEDS: NYSTATIN 500,000 UNITS/5 ML SUSPENSION PO SCH (19:27)
[2017-06-18 21:27] LABS: BASO % 0.9 % (0-2.0); EOS % 0.2 % (0-4.5); HEMATOCRIT 32.6 % (32.4-45.2); HEMOGLOBIN 10.7 GM/dL (10.7-15.3); LYMPH % 12.8 % (8-40); MCH 26.6 pg (25.7-33.7); MCHC 32.7 g/dl (32.0-36.0); MEAN CELL VOLUME 81.3 fl (80-96); MEAN PLT VOLUME 8.3 fl (7.5-11.1); MONO % 2.7 % (3.8-10.2); NEUT % 83.4 % (42.8-82.8); PLATELET COUNT 216 K/MM3 (134-434); RBC 4.01 M/mm3 (3.60-5.2); WHITE BLOOD COUNT 12.1 K/mm3 (4.0-10.0)
[2017-06-18 22:05] LABS: ANION GAP 7 (8-16); BLOOD UREA NITROGEN 11 mg/dL (7-18); CHLORIDE 102 mmol/L (98-107); CO2 29 mmol/L (21-32); CREATININE 0.8 mg/dL (0.55-1.02); GLUCOSE,RANDOM 122 mg/dL (74-106); POTASSIUM 3.9 mmol/L (3.5-5.1); SODIUM 138 mmol/L (136-145)
[2017-06-18] MEDS: ATORVASTATIN CA 10 MG TABLET (FP) PO SCH (23:34)
[2017-06-19] MEDS ORDERED: ALPRAZolam 0.25 MG TABLET PO PRN (01:17)
[2017-06-19] MEDS ORDERED: ALBUTEROL SO4 0.083% IH SOL 2.5 MG/3 ML VIAL.NEB. NEB PRN (01:18)
[2017-06-19 01:24] LABS: PLATELET ESTIMATE ADEQUATE
[2017-06-19] MEDS: NYSTATIN 500,000 UNITS/5 ML SUSPENSION PO SCH ×4 (01:27→17:45)
[2017-06-19] MEDS: ELECTROLYTE-148 SOLN 1,000 ML IV SCH ×4 (01:27→22:48)
[2017-06-19] MEDS: morphine CARPU-JECT 10 MG/1 ML DISP.SYRIN IVPUSH PRN ×2 (06:10→16:26)
[2017-06-19] MEDS: metroNIDAZOLE 250 MG TABLET PO SCH ×3 (06:11→22:00)
[2017-06-19] MEDS: HEPARIN NA (PORCINE) 5,000 UNITS/ML 1ML VIAL SQ SCH ×3 (06:11→21:08)
[2017-06-19] MEDS: CEFTRIAXONE 1 G/50 ML PREMIX 50 ML IVPB SCH (09:36)
[2017-06-19] MEDS: PANTOPRAZOLE 40 MG TABLET (FP) PO SCH (09:37)
[2017-06-19] MEDS: CLOPIDOGREL BISULFATE 75 MG TABLET (FP) PO SCH (09:37)
[2017-06-19] MEDS: FUROSEMIDE 20 MG TABLET (FP) PO SCH (09:37)
[2017-06-19] MEDS: VALSARTAN 80 MG TABLET (UD) PO SCH (09:37)
[2017-06-19] MEDS: BUDESONIDE/FORMETEROL FUMARATE 160/4.5 mcg INHALER IH SCH (09:38)
--- NOTE | 2017-06-19 11:25 | PN ---
Progress Note, Physician Chief Complaint: abdominal pain History of Present Illness: 62 y/o F with PMHx Morbid obesity s/p lapband, the removal and revision sleeve gastrectomy at [facility] ~2011(she no longer follows with surgeon, has been non-compliant with dietary restrictions, and after 90wt loss has regained >60lbs) , asthma, COPD, HTN, HLD, CAD s/p stent x 1 (2013), CHF, PR presented to ED with complaint of severe abdominal pain. Was NPO overnight, pain much improved. She has been afebrile. - Current Medication List Current Medications: Active Medications Albuterol Sulfate (Ventolin 0.083% Nebulizer Soln -) 1 amp NEB QID PRN PRN Reason: WHEEZING Alprazolam (Xanax -) 1 mg PO DAILY PRN PRN Reason: ANXIETY Last Admin: 06/19/17 01:27 Dose: 1 mg Atorvastatin Calcium (Lipitor -) 10 mg PO HS [facility] Last Admin: 06/18/17 23:34 Dose: 10 mg Budesonide/Formoterol Fumarate (Symbicort 160/4.5mcg -) 2 puff IH BID [facility] Last Admin: 06/19/17 09:38 Dose: Not Given Clopidogrel Bisulfate (Plavix -) 75 mg PO DAILY [facility] Last Admin: 06/19/17 09:37 Dose: 75 mg Diltiazem HCl (Cardizem Cd -) 240 mg PO DAILY [facility] Last Admin: 06/19/17 09:37 Dose: 240 mg Furosemide (Lasix -) 20 mg PO DAILY [facility] Last Admin: 06/19/17 09:37 Dose: 20 mg Heparin Sodium (Porcine) (Heparin -) 5,000 unit SQ TID [facility] Last Admin: 06/19/17 06:11 Dose: Not Given CEFTRIAXONE 1 G/50 ML PREMIX (Ceftriaxone 1 Gm-D5w Bag) 50 mls @ 100 mls/hr IVPB DAILY [facility] Last Admin: 06/19/17 09:36 Dose: 100 mls/hr Parenteral Electrolytes (Plasma-Lyte 148 -) 1,000 mls @ 125 mls/hr IV ASDIR [facility] Last Admin: 06/19/17 10:53 Dose: 125 mls/hr Metoclopramide HCl (Reglan Injection -) 10 mg IVPUSH Q6H PRN PRN Reason: NAUSEA AND/OR VOMITING Metronidazole (Flagyl -) 500 mg PO TID [facility] Last Admin: 06/19/17 06:11 Dose: 500 mg Morphine Sulfate (Morphine Injection -) 1 mg IVPUSH Q4H PRN PRN Reason: PAIN LEVEL 1-5 Last Admin: 06/19/17 06:10 Dose: 1 mg Nystatin (Nystatin Oral Suspension -) 500,000 units PO Q6HPO [facility] Last Admin: 06/19/17 06:11 Dose: 500,000 units Pantoprazole Sodium (Protonix -) 40 mg PO DAILY [facility] Last Admin: 06/19/17 09:37 Dose: 40 mg Valsartan (Diovan -) 80 mg PO DAILY [facility] Last Admin: 06/19/17 09:37 Dose: 80 mg - Objective Vital Signs: Vital Signs Temperature 98.6 F 06/19/17 05:59 Pulse Rate 79 06/19/17 05:59 Respiratory Rate 20 06/19/17 05:59 Blood Pressure 124/74 06/19/17 05:59 O2 Sat by Pulse Oximetry (%) 98 06/18/17 21:00 Vital Signs Period Temp Pulse Resp BP Sys/Zaman Pulse Ox Last 24 Hr 97.9 F-98.6 F 72-87 18-20 119-124/59-84 95-98 Constitutional: Yes: No Distress, Calm, Obese Eyes: Yes: Conjunctiva Clear, EOM Intact HENT: Yes: Atraumatic, Normocephalic Neck: Yes: Supple, Trachea Midline Cardiovascular: Yes: Regular Rate and Rhythm, S1, S2. No: Murmur Respiratory: Yes: Regular, CTA Bilaterally Gastrointestinal: Yes: Normal Bowel Sounds, Soft, Abdomen, Obese, Tenderness, Epigastrium (minimal tenderness on deep palpation). No: Distention, Vomiting ...Rectal Exam: Yes: Deferred Edema: No Peripheral Pulses WNL: Yes Peripheral Pulses: Left Doralis Pedis: 2+, Right Dorsalis Pedis: 2+ Neurological: Yes: Alert, Oriented Psychiatric: Yes: Alert, Oriented Labs: CBC,CMP WBC 10.9 K/mm3 (4.0-10.0) H 06/19/17 12:59 RBC 4.25 M/mm3 (3.60-5.2) 06/19/17 12:59 Hgb 11.2 GM/dL (10.7-15.3) 06/19/17 12:59 Hct 34.5 % (32.4-45.2) 06/19/17 12:59 MCV 81.2 fl (80-96) 06/19/17 12:59 MCH 26.4 pg (25.7-33.7) 06/19/17 12:59 MCHC 32.5 g/dl (32.0-36.0) 06/19/17 12:59 RDW 18.9 % (11.6-15.6) H 06/19/17 12:59 Plt Count 223 K/MM3 (134-434) 06/19/17 12:59 MPV 8.1 fl (7.5-11.1) 06/19/17 12:59 Total Counted 100 06/17/17 17:11 Neutrophils % 63.0 % (42.8-82.8) D 06/19/17 12:59 Neutrophils % (Manual) 72.0 % (42.8-82.8) 06/17/17 17:11 Band Neutrophils % 2.0 % 06/17/17 17:11 Lymphocytes % 29.9 % (8-40) D 06/19/17 12:59 Lymphocytes % (Manual) 23.0 % (8-40) D 06/17/17 17:11 Monocytes % 4.3 % (3.8-10.2) 06/19/17 12:59 Monocytes % (Manual) 3 % (3.8-10.2) L 06/17/17 17:11 Eosinophils % 1.5 % (0-4.5) D 06/19/17 12:59 Basophils % 1.3 % (0-2.0) 06/19/17 12:59 Hypochromia 2+ 06/17/17 17:11 Platelet Estimate Adequate 06/18/17 21:15 Platelet Comment No clotting detected 06/18/17 21:15 Anisocytosis 1+ 06/17/17 17:11 Microcytosis 1+ 06/17/17 17:11 ESR 13 mm/hr (0-30) 06/19/17 12:59 Sodium 140 mmol/L (136-145) 06/19/17 12:59 Potassium 3.8 mmol/L (3.5-5.1) 06/19/17 12:59 Chloride 102 mmol/L (98-107) 06/19/17 12:59 Carbon Dioxide 30 mmol/L (21-32) 06/19/17 12:59 Anion Gap 8 (8-16) 06/19/17 12:59 BUN 9 mg/dL (7-18) 06/19/17 12:59 Creatinine 0.8 mg/dL (0.55-1.02) 06/19/17 12:59 Creat Clearance w eGFR > 60 (>60) 06/19/17 12:59 Random Glucose 123 mg/dL (74-106) H 06/19/17 12:59 Hemoglobin A1c % 7.3 % (4.8-6.0) H D 06/17/17 22:22 Lactic Acid 0.9 mmol/L (0.0-2.0) 06/19/17 12:59 Calcium 8.3 mg/dL (8.5-10.1) L 06/19/17 12:59 Phosphorus 4.0 mg/dL (2.5-4.9) 06/18/17 08:05 Magnesium 2.4 mg/dL (1.8-2.4) 06/18/17 08:05 Total Bilirubin 1.2 mg/dL (0.2-1.0) H 06/19/17 12:59 AST 22 U/L (15-37) D 06/19/17 12:59 ALT 38 U/L (12-78) 06/19/17 12:59 Alkaline Phosphatase 56 U/L (45-117) 06/19/17 12:59 Creatine Kinase 190 IU/L (26-192) 06/17/17 19:09 Creatine Kinase Index 3.4 % (0.0-5.0) 06/17/17 19:09 CK-MB (CK-2) 6.554 ng/mL (0.5-3.6) H 06/17/17 19:09 Troponin I 0.17 ng/ml (0.00-0.05) H 06/18/17 08:05 Total Protein 6.3 g/dl (6.4-8.2) L 06/19/17 12:59 Albumin 3.2 g/dl (3.4-5.0) L 06/19/17 12:59 Triglycerides 215 mg/dL (35-160) H 06/18/17 08:05 Cholesterol 231 mg/dL (50-200) H 06/18/17 08:05 Total LDL Cholesterol 88 mg/dL (5-100) 06/18/17 08:05 HDL Cholesterol 109 mg/dL (40-60) H 06/18/17 08:05 Total Amylase 246 U/L (25-115) H D 06/18/17 08:05 Lipase 112 U/L (73-393) 06/18/17 08:05 - ....Imaging MRI: Report Reviewed, Image Reviewed (No clear signs of mesenteric ischemia) Problem List - Problems (1) Abdominal pain Assessment/Plan: 62 yo female MMP COPD on steroids s/p multiple bariatric procedures with acute onset epigastric abdominal pain with nausea, no vomiting, passing flatus, CT scan shows dilated loops of SB 3cm which can be an expected finding several years after restrictive bariatric procedures as they fail, due to increase volume capacity over time. Possible partial SBO, Colitis, gastroenteritis, not likely bowel ishemia lactic acid now 0.9 after resuscitation. MRI reviewed. f/u repeat labs Advance diet as tolerated IVF hydration trend labs, repeat lactic acid after IVF bolus Adequate analgesia IV antiemetic Will follow for serial exams Code(s): R10.9 - UNSPECIFIED ABDOMINAL PAIN Qualifiers: Abdominal location: epigastric Qualified Code(s): R10.13 - Epigastric pain (2) COPD (chronic obstructive pulmonary disease) Code(s): J44.9 - CHRONIC OBSTRUCTIVE PULMONARY DISEASE, UNSPECIFIED Qualifiers: COPD type: unspecified COPD Qualified Code(s): J44.9 - Chronic obstructive pulmonary disease, unspecified (3) Obesity due to excess calories with serious comorbidity Code(s): E66.09 - OTHER OBESITY DUE TO EXCESS CALORIES Qualifiers: Obesity classification: adult class 3 (BMI >= 40) Body mass index: BMI 50.0 -59.9 Qualified Code(s): E66.01 - Morbid (severe) obesity due to excess calories; Z68.43 - Body mass index (BMI) 50-59.9 , adult; Z68.43 - Body mass index (BMI) 50-59.9 , adult; Z68.43 - Body mass index (BMI) 50-59.9 , adult; Z68.43 - Body mass index (BMI) 50-59.9 , adult (4) Chest pain Code(s): R07.9 - CHEST PAIN, UNSPECIFIED (5) Elevated troponin Code(s): R74.8 - ABNORMAL LEVELS OF OTHER SERUM ENZYMES (6) Hypercholesterolemia Code(s): E78.0 - PURE HYPERCHOLESTEROLEMIA * DO NOT USE * (7) Nausea Code(s): R11.0 - NAUSEA (8) Uncontrolled hypertension Code(s): I10 - ESSENTIAL (PRIMARY) HYPERTENSION
--- NOTE | 2017-06-19 11:28 | PN ---
Progress Note, Physician Chief Complaint: AWAKE [employer] H[employer]GR[employer] DENIES FEVER AND CHILLS - Current Medication List Current Medications: Active Medications Albuterol Sulfate (Ventolin 0.083% Nebulizer Soln -) 1 amp NEB QID PRN PRN Reason: WHEEZING Alprazolam (Xanax -) 1 mg PO DAILY PRN PRN Reason: ANXIETY Last Admin: 06/19/17 01:27 Dose: 1 mg Atorvastatin Calcium (Lipitor -) 10 mg PO HS [facility] Last Admin: 06/18/17 23:34 Dose: 10 mg Budesonide/Formoterol Fumarate (Symbicort 160/4.5mcg -) 2 puff IH BID [facility] Last Admin: 06/19/17 09:38 Dose: Not Given Clopidogrel Bisulfate (Plavix -) 75 mg PO DAILY [facility] Last Admin: 06/19/17 09:37 Dose: 75 mg Diltiazem HCl (Cardizem Cd -) 240 mg PO DAILY [facility] Last Admin: 06/19/17 09:37 Dose: 240 mg Furosemide (Lasix -) 20 mg PO DAILY [facility] Last Admin: 06/19/17 09:37 Dose: 20 mg Heparin Sodium (Porcine) (Heparin -) 5,000 unit SQ TID [facility] Last Admin: 06/19/17 06:11 Dose: Not Given CEFTRIAXONE 1 G/50 ML PREMIX (Ceftriaxone 1 Gm-D5w Bag) 50 mls @ 100 mls/hr IVPB DAILY [facility] Last Admin: 06/19/17 09:36 Dose: 100 mls/hr Parenteral Electrolytes (Plasma-Lyte 148 -) 1,000 mls @ 125 mls/hr IV ASDIR [facility] Last Admin: 06/19/17 10:53 Dose: 125 mls/hr Metoclopramide HCl (Reglan Injection -) 10 mg IVPUSH Q6H PRN PRN Reason: NAUSEA AND/OR VOMITING Metronidazole (Flagyl -) 500 mg PO TID [facility] Last Admin: 06/19/17 06:11 Dose: 500 mg Morphine Sulfate (Morphine Injection -) 1 mg IVPUSH Q4H PRN PRN Reason: PAIN LEVEL 1-5 Last Admin: 06/19/17 06:10 Dose: 1 mg Nystatin (Nystatin Oral Suspension -) 500,000 units PO Q6HPO [facility] Last Admin: 06/19/17 06:11 Dose: 500,000 units Pantoprazole Sodium (Protonix -) 40 mg PO DAILY [facility] Last Admin: 06/19/17 09:37 Dose: 40 mg Valsartan (Diovan -) 80 mg PO DAILY [facility] Last Admin: 06/19/17 09:37 Dose: 80 mg - Objective Vital Signs: Vital Signs Temperature 98.6 F 06/19/17 05:59 Pulse Rate 79 06/19/17 05:59 Respiratory Rate 20 06/19/17 05:59 Blood Pressure 124/74 06/19/17 05:59 O2 Sat by Pulse Oximetry (%) 98 06/18/17 21:00 Constitutional: Yes: No Distress Eyes: Yes: WNL HENT: Yes: WNL Neck: Yes: WNL Cardiovascular: Yes: WNL Respiratory: Yes: WNL Gastrointestinal: Yes: WNL Genitourinary: Yes: WNL Musculoskeletal: Yes: WNL Extremities: Yes: WNL Edema: No Peripheral Pulses WNL: Yes Integumentary: Yes: WNL Wound/Incision: Yes: Clean/Dry Neurological: Yes: WNL ...Motor Strength: WNL Psychiatric: Yes: WNL Labs: CBC, BMP 06/18/17 21:15 06/18/17 21:15 INR, PTT INR 0.84 (0.82-1.09) L 06/17/17 17:11 Assessment/Plan A/P DOUBT THIS IS MESENTERIC ISCHEMIA LIKELY COLITIS VS CHRONIC POST SURGICAL ADHESIONS D/W SURGERY WILL CHECK ESR/CRP CAN START CLEARS TONIGHT IF LABS NORMAL
--- NOTE | 2017-06-19 12:43 | PN ---
Progress Note (short form) - Note Progress Note: Chief Complaint: Events noted, notes reviewed, denies any chest pain or dyspnea , abdominal discomfort improved History of Present Illness: Seen and examined. Events noted, notes reviewed, denies any chest pain or dyspnea, abdominal discomfort improved - Current Medication List Current Medications Albuterol Sulfate (Ventolin 0.083% Nebulizer Soln -) 1 amp NEB QID PRN PRN Reason: WHEEZING Alprazolam (Xanax -) 1 mg PO DAILY PRN PRN Reason: ANXIETY Last Admin: 06/19/17 01:27 Dose: 1 mg Atorvastatin Calcium (Lipitor -) 10 mg PO HS [facility] Last Admin: 06/18/17 23:34 Dose: 10 mg Budesonide (Pulmicort 0.5 Mg Nebulizer -) 1 amp NEB RBID [facility] Budesonide/Formoterol Fumarate (Symbicort 160/4.5mcg -) 2 puff IH BID [facility] Last Admin: 06/19/17 09:38 Dose: Not Given Clopidogrel Bisulfate (Plavix -) 75 mg PO DAILY [facility] Last Admin: 06/19/17 09:37 Dose: 75 mg Diltiazem HCl (Cardizem Cd -) 240 mg PO DAILY [facility] Last Admin: 06/19/17 09:37 Dose: 240 mg Furosemide (Lasix -) 20 mg PO DAILY [facility] Last Admin: 06/19/17 09:37 Dose: 20 mg Heparin Sodium (Porcine) (Heparin -) 5,000 unit SQ TID [facility] Last Admin: 06/19/17 06:11 Dose: Not Given CEFTRIAXONE 1 G/50 ML PREMIX (Ceftriaxone 1 Gm-D5w Bag) 50 mls @ 100 mls/hr IVPB DAILY [facility] Last Admin: 06/19/17 09:36 Dose: 100 mls/hr Parenteral Electrolytes (Plasma-Lyte 148 -) 1,000 mls @ 125 mls/hr IV ASDIR [facility] Last Admin: 06/19/17 10:53 Dose: 125 mls/hr Metoclopramide HCl (Reglan Injection -) 10 mg IVPUSH Q6H PRN PRN Reason: NAUSEA AND/OR VOMITING Metronidazole (Flagyl -) 500 mg PO TID [facility] Last Admin: 06/19/17 06:11 Dose: 500 mg Morphine Sulfate (Morphine Injection -) 1 mg IVPUSH Q4H PRN PRN Reason: PAIN LEVEL 1-5 Last Admin: 06/19/17 06:10 Dose: 1 mg Nystatin (Nystatin Oral Suspension -) 500,000 units PO Q6HPO [facility] Last Admin: 06/19/17 12:17 Dose: 500,000 units Pantoprazole Sodium (Protonix -) 40 mg PO DAILY [facility] Last Admin: 06/19/17 09:37 Dose: 40 mg Valsartan (Diovan -) 80 mg PO DAILY [facility] Last Admin: 06/19/17 09:37 Dose: 80 mg - Objective Vital Signs: Last Vital Signs Temp Pulse Resp BP Pulse Ox 98.3 F 82 18 133/69 97 06/19/17 10:00 06/19/17 10:00 06/19/17 10:00 06/19/17 10:00 06/19/17 09:00 Intake & Output 06/16/17 06/17/17 06/18/17 06/19/17 23:59 23:59 23:59 23:59 Intake Total 1250 875 Balance 1250 875 Weight 300 lb 300 lb Constitutional: No Distress Calm Neck: Supple Negative JVD No Bruit Respiratory: Diminished Breath Sounds at the Bases Bilateral Scattered Rhonchi Cardiovascular: S1 S2 Regular Rate and Rhythm Gastrointestinal: Soft Benign Normal Bowel Sounds Ext: Negative Edema Labs: CBC, BMP 06/18/17 21:15 06/18/17 21:15 Hepatic Panel Total Bilirubin 1.2 mg/dL (0.2-1.0) H 06/18/17 08:05 AST 18 U/L (15-37) D 06/18/17 08:05 ALT 35 U/L (12-78) D 06/18/17 08:05 Alkaline Phosphatase 52 U/L (45-117) 06/18/17 08:05 Albumin 2.9 g/dl (3.4-5.0) L 06/18/17 08:05 INR, PTT INR 0.84 (0.82-1.09) L 06/17/17 17:11 Assessment/Plan Assessment: 1. Abdominal pain/discomfort referable to acute enteritis etiology to be determined 2. CAD post NSTEMI post PCI/stent angina pectoris with evidence of demand ischemic injury 3. Diastolic LV dysfunction with class 0-I NYHA classification LV failure, compensated/euvolemic 4. HTN 5. Hypercholesterolemia 6. Bronchial asthma/reactive airway disease recent exacerbation 7. CKD PLAN: 1. Continue Cardizem CD 2. Continue Diovan 3. Continue Statin/Lipitor therapy 4. Continue Plavix 5. Continue Lasix with caution 6. No additional cardiovascular intervention or evaluation indicated at this point for the above noted presentation (elevated Troponin I), to F/U with Dr. John Solano post D/C Cathryn Ferraro MD
[2017-06-19 13:07] LABS: BASO % 1.3 % (0-2.0); EOS % 1.5 % (0-4.5); HEMATOCRIT 34.5 % (32.4-45.2); HEMOGLOBIN 11.2 GM/dL (10.7-15.3); LYMPH % 29.9 % (8-40); MCH 26.4 pg (25.7-33.7); MCHC 32.5 g/dl (32.0-36.0); MEAN CELL VOLUME 81.2 fl (80-96); MEAN PLT VOLUME 8.1 fl (7.5-11.1); MONO % 4.3 % (3.8-10.2); PLATELET COUNT 223 K/MM3 (134-434); RBC 4.25 M/mm3 (3.60-5.2); RDW 18.9 % (11.6-15.6); WHITE BLOOD COUNT 10.9 K/mm3 (4.0-10.0)
[2017-06-19 13:41] LABS: ALBUMIN 3.2 g/dl (3.4-5.0); ANION GAP 8 (8-16); BILIRUBIN,TOTAL 1.2 mg/dL (0.2-1.0); BLOOD UREA NITROGEN 9 mg/dL (7-18); CALCIUM 8.3 mg/dL (8.5-10.1); CHLORIDE 102 mmol/L (98-107); CO2 30 mmol/L (21-32); CREATININE 0.8 mg/dL (0.55-1.02); GLUCOSE,RANDOM 123 mg/dL (74-106); POTASSIUM 3.8 mmol/L (3.5-5.1); SGOT/AST 22 U/L (15-37); SGPT/ALT 38 U/L (12-78); SODIUM 140 mmol/L (136-145); TOT PROT 6.3 g/dl (6.4-8.2)
[2017-06-19 13:42] LABS: ALK PHOS 56 U/L (45-117)
[2017-06-19 14:13] LABS: ERYTHROCYTE SEDIMENTATION RATE 13 mm/hr (0-30)
--- NOTE | 2017-06-19 18:21 | PN ---
GI Progress Note Subjective: compared to yesterday, clinically improved after IV hydration, MRI no evidence of mesenteric ischemia - Objective Vital Signs: Vital Signs Temperature 97.3 F L 06/19/17 17:15 Pulse Rate 91 H 06/19/17 17:15 Respiratory Rate 20 06/19/17 17:15 Blood Pressure 115/68 06/19/17 17:15 O2 Sat by Pulse Oximetry (%) 97 06/19/17 09:00 Constitutional: Well Nourished Eyes: Yes: Conjunctiva Clear HENT: Yes: Atraumatic Neck: Yes: Trachea Midline Cardiovascular: Yes: Regular Rate and Rhythm Respiratory: Yes: CTA Bilaterally ...Palpate: Yes: Soft. No: Guarding, Hepatomegaly, Mass, Pulsatile Mass, Tenderness Labs: CBC, BMP 06/19/17 12:59 06/19/17 12:59 INR, PTT INR 0.84 (0.82-1.09) L 06/17/17 17:11 Problem List - Problems (1) Dilated bowel Assessment/Plan: r/o resolved ischemia which improved after agressive hydration vs resolving SBO R> made aware to follow-up must r/o hypercoaguable state even as an outpatient Code(s): [id number] -
[2017-06-19] MEDS ORDERED: PT OWN MED DRAWER 7, Y5N ONE (19:19)
[2017-06-19] MEDS ORDERED: BUDESONIDE 0.5 MG/2 ML INH SUSP VIAL NEB SCH (20:00)
[2017-06-19] MEDS: BUDESONIDE 0.5 MG/2 ML INH SUSP VIAL NEB SCH (20:41)
[2017-06-19] MEDS: ATORVASTATIN CA 10 MG TABLET (FP) PO SCH (22:00)
[2017-06-19] MEDS ORDERED: LORazepam 0.5 MG TABLET PO ONE (22:30)
[2017-06-20] MEDS: NYSTATIN 500,000 UNITS/5 ML SUSPENSION PO SCH ×5 (00:04→23:15)
[2017-06-20] MEDS: HEPARIN NA (PORCINE) 5,000 UNITS/ML 1ML VIAL SQ SCH ×3 (05:45→21:23)
[2017-06-20] MEDS: metroNIDAZOLE 250 MG TABLET PO SCH ×3 (06:03→21:23)
[2017-06-20] MEDS: BUDESONIDE 0.5 MG/2 ML INH SUSP VIAL NEB SCH ×2 (08:30→20:44)
[2017-06-20] MEDS ORDERED: BUDESONIDE 0.25 MG/2ML INH SUSP VIAL NEB ONE ×2 (09:18→20:35)
[2017-06-20] MEDS: VALSARTAN 80 MG TABLET (UD) PO SCH (09:50)
[2017-06-20] MEDS: PANTOPRAZOLE 40 MG TABLET (FP) PO SCH (09:50)
[2017-06-20] MEDS: FUROSEMIDE 20 MG TABLET (FP) PO SCH (09:50)
[2017-06-20] MEDS: CEFTRIAXONE 1 G/50 ML PREMIX 50 ML IVPB SCH (09:51)
[2017-06-20] MEDS: CLOPIDOGREL BISULFATE 75 MG TABLET (FP) PO SCH (09:51)
[2017-06-20] MEDS: ELECTROLYTE-148 SOLN 1,000 ML IV SCH (09:51)
--- NOTE | 2017-06-20 11:20 | PN ---
Progress Note, Physician Chief Complaint: MILD ABD PAIN OVERNIGHT ON CLEAR DIET ASKING FOR CRACKERS - Current Medication List Current Medications: Active Medications Albuterol Sulfate (Ventolin 0.083% Nebulizer Soln -) 1 amp NEB QID PRN PRN Reason: WHEEZING Last Admin: 06/19/17 20:43 Dose: 1 amp Alprazolam (Xanax -) 1 mg PO DAILY PRN PRN Reason: ANXIETY Last Admin: 06/19/17 01:27 Dose: 1 mg Atorvastatin Calcium (Lipitor -) 10 mg PO HS [facility] Last Admin: 06/19/17 22:00 Dose: 10 mg Budesonide (Pulmicort 0.5 Mg Nebulizer -) 1 amp NEB RBID [facility] Last Admin: 06/19/17 20:41 Dose: 1 amp Clopidogrel Bisulfate (Plavix -) 75 mg PO DAILY [facility] Last Admin: 06/20/17 09:51 Dose: 75 mg Diltiazem HCl (Cardizem Cd -) 240 mg PO DAILY [facility] Last Admin: 06/20/17 09:50 Dose: 240 mg Furosemide (Lasix -) 20 mg PO DAILY [facility] Last Admin: 06/20/17 09:50 Dose: 20 mg Heparin Sodium (Porcine) (Heparin -) 5,000 unit SQ TID [facility] Last Admin: 06/20/17 05:45 Dose: Not Given CEFTRIAXONE 1 G/50 ML PREMIX (Ceftriaxone 1 Gm-D5w Bag) 50 mls @ 100 mls/hr IVPB DAILY [facility] Last Admin: 06/20/17 09:51 Dose: 100 mls/hr Parenteral Electrolytes (Plasma-Lyte 148 -) 1,000 mls @ 125 mls/hr IV ASDIR [facility] Last Admin: 06/20/17 09:51 Dose: 125 mls/hr Metoclopramide HCl (Reglan Injection -) 10 mg IVPUSH Q6H PRN PRN Reason: NAUSEA AND/OR VOMITING Metronidazole (Flagyl -) 500 mg PO TID [facility] Last Admin: 06/20/17 06:03 Dose: 500 mg Morphine Sulfate (Morphine Injection -) 1 mg IVPUSH Q4H PRN PRN Reason: PAIN LEVEL 1-5 Last Admin: 06/19/17 16:26 Dose: 1 mg Nystatin (Nystatin Oral Suspension -) 500,000 units PO Q6HPO [facility] Last Admin: 06/20/17 06:03 Dose: 500,000 units Pantoprazole Sodium (Protonix -) 40 mg PO DAILY [facility] Last Admin: 06/20/17 09:50 Dose: 40 mg Valsartan (Diovan -) 80 mg PO DAILY [facility] Last Admin: 06/20/17 09:50 Dose: 80 mg - Objective Vital Signs: Vital Signs Temperature 98.7 F 06/20/17 06:00 Pulse Rate 87 06/20/17 06:00 Respiratory Rate 20 06/20/17 06:00 Blood Pressure 136/87 06/20/17 06:00 O2 Sat by Pulse Oximetry (%) 94 L 06/19/17 21:00 Constitutional: Yes: Mild Distress Eyes: Yes: WNL HENT: Yes: WNL Neck: Yes: WNL Cardiovascular: Yes: WNL Respiratory: Yes: WNL Gastrointestinal: Yes: WNL Genitourinary: Yes: WNL Musculoskeletal: Yes: Muscle Weakness Extremities: Yes: WNL Edema: No Peripheral Pulses WNL: Yes Integumentary: Yes: WNL Wound/Incision: Yes: Clean/Dry Neurological: Yes: WNL ...Motor Strength: WNL Psychiatric: Yes: WNL Labs: CBC, BMP 06/19/17 12:59 06/19/17 12:59 INR, PTT INR 0.84 (0.82-1.09) L 06/17/17 17:11 Problem List - Problems (1) Abdominal pain Code(s): R10.9 - UNSPECIFIED ABDOMINAL PAIN Qualifiers: Abdominal location: epigastric Qualified Code(s): R10.13 - Epigastric pain (2) COPD (chronic obstructive pulmonary disease) Code(s): J44.9 - CHRONIC OBSTRUCTIVE PULMONARY DISEASE, UNSPECIFIED Qualifiers: COPD type: unspecified COPD Qualified Code(s): J44.9 - Chronic obstructive pulmonary disease, unspecified (3) Enteritis Code(s): K52.9 - NONINFECTIVE GASTROENTERITIS AND COLITIS, UNSPECIFIED Assessment/Plan CONTINUE ABX IV OOB TO CHAIR CRACKERS STARTED WITH CLEAR DIET OOB TO CHAIR
--- NOTE | 2017-06-20 13:27 | PN ---
Progress Note (short form) - Note Progress Note: Chief Complaint: Events noted, notes reviewed, denies any chest pain or dyspnea , abdominal discomfort improved History of Present Illness: Seen and examined. Events noted, notes reviewed, denies any chest pain or dyspnea, abdominal discomfort improved - Current Medication List Current Medications Albuterol Sulfate (Ventolin 0.083% Nebulizer Soln -) 1 amp NEB QID PRN PRN Reason: WHEEZING Last Admin: 06/19/17 20:43 Dose: 1 amp Alprazolam (Xanax -) 1 mg PO DAILY PRN PRN Reason: ANXIETY Last Admin: 06/19/17 01:27 Dose: 1 mg Atorvastatin Calcium (Lipitor -) 10 mg PO HS [facility] Last Admin: 06/19/17 22:00 Dose: 10 mg Budesonide (Pulmicort 0.5 Mg Nebulizer -) 1 amp NEB RBID [facility] Last Admin: 06/19/17 20:41 Dose: 1 amp Clopidogrel Bisulfate (Plavix -) 75 mg PO DAILY [facility] Last Admin: 06/20/17 09:51 Dose: 75 mg Diltiazem HCl (Cardizem Cd -) 240 mg PO DAILY [facility] Last Admin: 06/20/17 09:50 Dose: 240 mg Furosemide (Lasix -) 20 mg PO DAILY [facility] Last Admin: 06/20/17 09:50 Dose: 20 mg Heparin Sodium (Porcine) (Heparin -) 5,000 unit SQ TID [facility] Last Admin: 06/20/17 05:45 Dose: Not Given CEFTRIAXONE 1 G/50 ML PREMIX (Ceftriaxone 1 Gm-D5w Bag) 50 mls @ 100 mls/hr IVPB DAILY [facility] Last Admin: 06/20/17 09:51 Dose: 100 mls/hr Parenteral Electrolytes (Plasma-Lyte 148 -) 1,000 mls @ 125 mls/hr IV ASDIR [facility] Last Admin: 06/20/17 09:51 Dose: 125 mls/hr Metoclopramide HCl (Reglan Injection -) 10 mg IVPUSH Q6H PRN PRN Reason: NAUSEA AND/OR VOMITING Metronidazole (Flagyl -) 500 mg PO TID [facility] Last Admin: 06/20/17 06:03 Dose: 500 mg Morphine Sulfate (Morphine Injection -) 1 mg IVPUSH Q4H PRN PRN Reason: PAIN LEVEL 1-5 Last Admin: 06/19/17 16:26 Dose: 1 mg Nystatin (Nystatin Oral Suspension -) 500,000 units PO Q6HPO [facility] Last Admin: 06/20/17 12:26 Dose: 500,000 units Pantoprazole Sodium (Protonix -) 40 mg PO DAILY [facility] Last Admin: 06/20/17 09:50 Dose: 40 mg Valsartan (Diovan -) 80 mg PO DAILY [facility] Last Admin: 06/20/17 09:50 Dose: 80 mg - Objective Vital Signs: Last Vital Signs Temp Pulse Resp BP Pulse Ox 98.4 F 82 18 138/80 96 06/20/17 10:00 06/20/17 10:00 06/20/17 10:00 06/20/17 10:00 06/20/17 09:00 Intake & Output 06/17/17 06/18/17 06/19/17 06/20/17 23:59 23:59 23:59 23:59 Intake Total 1250 2550 1075 Balance 1250 2550 1075 Weight 300 lb 300 lb Constitutional: No Distress Calm Neck: Supple Negative JVD No Bruit Respiratory: Diminished Breath Sounds at the Bases Bilateral Scattered Rhonchi Cardiovascular: S1 S2 Regular Rate and Rhythm Gastrointestinal: Soft Benign Normal Bowel Sounds Ext: Negative Edema Labs: CBC, BMP 06/19/17 12:59 06/19/17 12:59 Hepatic Panel Total Bilirubin 1.2 mg/dL (0.2-1.0) H 06/19/17 12:59 AST 22 U/L (15-37) D 06/19/17 12:59 ALT 38 U/L (12-78) 06/19/17 12:59 Alkaline Phosphatase 56 U/L (45-117) 06/19/17 12:59 Albumin 3.2 g/dl (3.4-5.0) L 06/19/17 12:59 INR, PTT INR 0.84 (0.82-1.09) L 06/17/17 17:11 Assessment/Plan Assessment: 1. Abdominal pain/discomfort referable to acute enteritis etiology to be determined, resolving 2. CAD post NSTEMI post PCI/stent angina pectoris with evidence of demand ischemic injury 3. Diastolic LV dysfunction with class 0-I NYHA classification LV failure, compensated/euvolemic 4. HTN 5. Hypercholesterolemia 6. Bronchial asthma/reactive airway disease recent exacerbation 7. CKD PLAN: 1. Continue Cardizem CD 2. Continue Diovan 3. Continue Statin/Lipitor therapy 4. Continue Plavix 5. Continue Lasix with caution 6. No additional cardiovascular intervention or evaluation indicated at this point for the above noted presentation (elevated Troponin I), to F/U with Dr. John Solano post D/C Cathryn Ferraro MD
--- NOTE | 2017-06-20 13:36 | PN ---
Progress Note, Physician Chief Complaint: abdominal pain History of Present Illness: 62 y/o F with PMHx Morbid obesity s/p lapband, the removal and revision sleeve gastrectomy at [facility] ~2011(she no longer follows with surgeon, has been non-compliant with dietary restrictions, and after 90wt loss has regained >60lbs) , asthma, COPD, HTN, HLD, CAD s/p stent x 1 (2013), CHF, [place] presented to ED with complaint of severe abdominal pain. tolerated diet advancement, no acute events overnight, pain much improved. She has been afebrile. - Current Medication List Current Medications: Active Medications Albuterol Sulfate (Ventolin 0.083% Nebulizer Soln -) 1 amp NEB QID PRN PRN Reason: WHEEZING Last Admin: 06/19/17 20:43 Dose: 1 amp Alprazolam (Xanax -) 1 mg PO DAILY PRN PRN Reason: ANXIETY Last Admin: 06/19/17 01:27 Dose: 1 mg Atorvastatin Calcium (Lipitor -) 10 mg PO HS [facility] Last Admin: 06/19/17 22:00 Dose: 10 mg Budesonide (Pulmicort 0.5 Mg Nebulizer -) 1 amp NEB RBID [facility] Last Admin: 06/19/17 20:41 Dose: 1 amp Clopidogrel Bisulfate (Plavix -) 75 mg PO DAILY [facility] Last Admin: 06/20/17 09:51 Dose: 75 mg Diltiazem HCl (Cardizem Cd -) 240 mg PO DAILY [facility] Last Admin: 06/20/17 09:50 Dose: 240 mg Furosemide (Lasix -) 20 mg PO DAILY [facility] Last Admin: 06/20/17 09:50 Dose: 20 mg Heparin Sodium (Porcine) (Heparin -) 5,000 unit SQ TID [facility] Last Admin: 06/20/17 05:45 Dose: Not Given CEFTRIAXONE 1 G/50 ML PREMIX (Ceftriaxone 1 Gm-D5w Bag) 50 mls @ 100 mls/hr IVPB DAILY [facility] Last Admin: 06/20/17 09:51 Dose: 100 mls/hr Parenteral Electrolytes (Plasma-Lyte 148 -) 1,000 mls @ 125 mls/hr IV ASDIR [facility] Last Admin: 06/20/17 09:51 Dose: 125 mls/hr Metoclopramide HCl (Reglan Injection -) 10 mg IVPUSH Q6H PRN PRN Reason: NAUSEA AND/OR VOMITING Metronidazole (Flagyl -) 500 mg PO TID [facility] Last Admin: 06/20/17 06:03 Dose: 500 mg Morphine Sulfate (Morphine Injection -) 1 mg IVPUSH Q4H PRN PRN Reason: PAIN LEVEL 1-5 Last Admin: 06/19/17 16:26 Dose: 1 mg Nystatin (Nystatin Oral Suspension -) 500,000 units PO Q6HPO [facility] Last Admin: 06/20/17 12:26 Dose: 500,000 units Pantoprazole Sodium (Protonix -) 40 mg PO DAILY [facility] Last Admin: 06/20/17 09:50 Dose: 40 mg Valsartan (Diovan -) 80 mg PO DAILY [facility] Last Admin: 06/20/17 09:50 Dose: 80 mg - Objective Vital Signs: Vital Signs Temperature 98.4 F 06/20/17 10:00 Pulse Rate 82 06/20/17 10:00 Respiratory Rate 18 06/20/17 10:00 Blood Pressure 138/80 06/20/17 10:00 O2 Sat by Pulse Oximetry (%) 96 06/20/17 09:00 Vital Signs Period Temp Pulse Resp BP Sys/Zaman Pulse Ox Last 24 Hr 97.3 F-98.7 F 65-91 18-20 113-138/56-87 94-96 Constitutional: Yes: No Distress, Calm, Obese Eyes: Yes: Conjunctiva Clear, EOM Intact HENT: Yes: Atraumatic, Normocephalic Neck: Yes: Supple, Trachea Midline Cardiovascular: Yes: Regular Rate and Rhythm, S1, S2 Respiratory: Yes: Regular, CTA Bilaterally Gastrointestinal: Yes: Normal Bowel Sounds, Soft, Abdomen, Obese. No: Tenderness, Tenderness, Epigastrium, Tenderness, Rebound, Vomiting Musculoskeletal: No: Muscle Pain, Muscle Weakness Extremities: No: Cool, Cyanosis Edema: No Peripheral Pulses WNL: Yes Peripheral Pulses: Left Doralis Pedis: 2+, Right Dorsalis Pedis: 2+ Neurological: Yes: Alert, Oriented Psychiatric: Yes: Alert, Oriented Labs: CBC, BMP 06/19/17 12:59 06/19/17 12:59 INR, PTT INR 0.84 (0.82-1.09) L 06/17/17 17:11 Microbiology 06/17/17 16:57 Urine - Urine Clean Catch Urine Culture - Final Contaminated: Please Repeat 06/18/17 06:56 Nasopharyngeal Swab Influenza Types A,B Antigen (MICHAEL) - Final 06/18/17 06:56 Nasopharyngeal Swab - Final Problem List - Problems (1) Abdominal pain Assessment/Plan: 62 yo female MMP COPD on steroids s/p multiple bariatric procedures with acute onset epigastric abdominal pain with nausea, no vomiting, passing flatus, CT scan shows dilated loops of SB 3cm which can be an expected finding several years after restrictive bariatric procedures as they fail, due to increase volume capacity over time. Possible partial SBO, Colitis, gastroenteritis, not likely bowel ishemia lactic acid now 0.9 after resuscitation. MRI reviewed. Having her baseline bowel habits Regular diet adequate analgesia she can be discharged home for followup at [facility] with her bariatric surgeon Code(s): R10.9 - UNSPECIFIED ABDOMINAL PAIN Qualifiers: Abdominal location: epigastric Qualified Code(s): R10.13 - Epigastric pain (2) COPD (chronic obstructive pulmonary disease) Code(s): J44.9 - CHRONIC OBSTRUCTIVE PULMONARY DISEASE, UNSPECIFIED Qualifiers: COPD type: unspecified COPD Qualified Code(s): J44.9 - Chronic obstructive pulmonary disease, unspecified (3) Obesity due to excess calories with serious comorbidity Code(s): E66.09 - OTHER OBESITY DUE TO EXCESS CALORIES Qualifiers: Obesity classification: adult class 3 (BMI >= 40) Body mass index: BMI 50.0 -59.9 Qualified Code(s): E66.01 - Morbid (severe) obesity due to excess calories; Z68.43 - Body mass index (BMI) 50-59.9 , adult; Z68.43 - Body mass index (BMI) 50-59.9 , adult; Z68.43 - Body mass index (BMI) 50-59.9 , adult; Z68.43 - Body mass index (BMI) 50-59.9 , adult (4) Chest pain Code(s): R07.9 - CHEST PAIN, UNSPECIFIED (5) Elevated troponin Code(s): R74.8 - ABNORMAL LEVELS OF OTHER SERUM ENZYMES (6) Hypercholesterolemia Code(s): E78.0 - PURE HYPERCHOLESTEROLEMIA * DO NOT USE * (7) Nausea Code(s): R11.0 - NAUSEA (8) Uncontrolled hypertension Code(s): I10 - ESSENTIAL (PRIMARY) HYPERTENSION
[2017-06-20] MEDS: ATORVASTATIN CA 10 MG TABLET (FP) PO SCH (21:23)
[2017-06-21] MEDS ORDERED: oxyCODONE HCL 5 MG TABLET PO ONE (04:26)
[2017-06-21] MEDS ORDERED: ACETAMINOPHEN 500 MG TABLET (FP) PO ONE (04:34)
[2017-06-21] MEDS ORDERED: ACETAMINOPHEN 325 MG TABLET (FP) ONE (04:36)
[2017-06-21] MEDS: NYSTATIN 500,000 UNITS/5 ML SUSPENSION PO SCH ×4 (05:53→23:05)
[2017-06-21] MEDS: metroNIDAZOLE 250 MG TABLET PO SCH ×3 (05:53→22:40)
[2017-06-21] MEDS: HEPARIN NA (PORCINE) 5,000 UNITS/ML 1ML VIAL SQ SCH ×4 (05:55→22:38)
[2017-06-21 06:25] LABS: HEMATOCRIT 32.5 % (32.4-45.2); HEMOGLOBIN 10.8 GM/dL (10.7-15.3); MCH 27.1 pg (25.7-33.7); MCHC 33.3 g/dl (32.0-36.0); MEAN CELL VOLUME 81.4 fl (80-96); MEAN PLT VOLUME 8.3 fl (7.5-11.1); PLATELET COUNT 240 K/MM3 (134-434); RDW 18.7 % (11.6-15.6); WHITE BLOOD COUNT 7.8 K/mm3 (4.0-10.0)
[2017-06-21 07:10] LABS: ANION GAP 7 (8-16); BLOOD UREA NITROGEN 8 mg/dL (7-18); CALCIUM 7.9 mg/dL (8.5-10.1); CHLORIDE 107 mmol/L (98-107); CO2 27 mmol/L (21-32); GLUCOSE,RANDOM 122 mg/dL (74-106); POTASSIUM 3.7 mmol/L (3.5-5.1); SODIUM 141 mmol/L (136-145)
--- NOTE | 2017-06-21 09:25 | PN ---
Progress Note, Physician Chief Complaint: abdominal pain History of Present Illness: 62 y/o F with PMHx Morbid obesity s/p lapband, the removal and revision sleeve gastrectomy at [facility] ~2011(she no longer follows with surgeon, has been non-compliant with dietary restrictions, and after 90wt loss has regained >60lbs) , asthma, COPD, HTN, HLD, CAD s/p stent x 1 (2013), CHF, [place] presented to ED with complaint of severe abdominal pain. tolerated diet advancement, no acute events overnight, pain much improved. She has been afebrile. - Current Medication List Current Medications: Active Medications Albuterol Sulfate (Ventolin 0.083% Nebulizer Soln -) 1 amp NEB QID PRN PRN Reason: WHEEZING Last Admin: 06/19/17 20:43 Dose: 1 amp Alprazolam (Xanax -) 1 mg PO DAILY PRN PRN Reason: ANXIETY Last Admin: 06/19/17 01:27 Dose: 1 mg Atorvastatin Calcium (Lipitor -) 10 mg PO HS [facility] Last Admin: 06/20/17 21:23 Dose: 10 mg Budesonide (Pulmicort 0.5 Mg Nebulizer -) 1 amp NEB RBID [facility] Last Admin: 06/20/17 20:44 Dose: 1 amp Clopidogrel Bisulfate (Plavix -) 75 mg PO DAILY [facility] Last Admin: 06/20/17 09:51 Dose: 75 mg Diltiazem HCl (Cardizem Cd -) 240 mg PO DAILY [facility] Last Admin: 06/20/17 09:50 Dose: 240 mg Furosemide (Lasix -) 20 mg PO DAILY [facility] Last Admin: 06/20/17 09:50 Dose: 20 mg Heparin Sodium (Porcine) (Heparin -) 5,000 unit SQ TID [facility] Last Admin: 06/21/17 05:55 Dose: Not Given CEFTRIAXONE 1 G/50 ML PREMIX (Ceftriaxone 1 Gm-D5w Bag) 50 mls @ 100 mls/hr IVPB DAILY [facility] Last Admin: 06/20/17 09:51 Dose: 100 mls/hr Metoclopramide HCl (Reglan Injection -) 10 mg IVPUSH Q6H PRN PRN Reason: NAUSEA AND/OR VOMITING Metronidazole (Flagyl -) 500 mg PO TID [facility] Last Admin: 06/21/17 05:53 Dose: 500 mg Nystatin (Nystatin Oral Suspension -) 500,000 units PO Q6HPO [facility] Last Admin: 06/21/17 05:53 Dose: 500,000 units Pantoprazole Sodium (Protonix -) 40 mg PO DAILY [facility] Last Admin: 06/20/17 09:50 Dose: 40 mg Valsartan (Diovan -) 80 mg PO DAILY [facility] Last Admin: 06/20/17 09:50 Dose: 80 mg - Objective Vital Signs: Vital Signs Temperature 98.7 F 06/21/17 06:56 Pulse Rate 78 06/21/17 06:56 Respiratory Rate 16 06/21/17 06:56 Blood Pressure 115/67 06/21/17 06:56 O2 Sat by Pulse Oximetry (%) 98 06/20/17 20:52 Vital Signs Period Temp Pulse Resp BP Sys/Zaman Pulse Ox Last 24 Hr 98.4 F-98.8 F 78-95 16-18 115-138/67-81 98 Constitutional: Yes: No Distress, Calm, Obese Eyes: Yes: Conjunctiva Clear, EOM Intact HENT: Yes: Atraumatic, Normocephalic Neck: Yes: Supple, Trachea Midline Respiratory: Yes: Regular, CTA Bilaterally Gastrointestinal: Yes: Normal Bowel Sounds, Soft, Abdomen, Obese. No: Distention, Tenderness, Tenderness, Epigastrium, Tenderness, Rebound Labs: CBC, BMP 06/21/17 05:25 06/21/17 05:25 INR, PTT INR 0.84 (0.82-1.09) L 06/17/17 17:11 Problem List - Problems (1) Abdominal pain Assessment/Plan: 62 yo female MMP COPD on steroids s/p multiple bariatric procedures with acute onset epigastric abdominal pain with nausea, no vomiting, passing flatus, CT scan shows dilated loops of SB 3cm which can be an expected finding several years after restrictive bariatric procedures as they fail, due to increase volume capacity over time. Possible partial SBO, Colitis, gastroenteritis, not likely bowel ishemia lactic acid now 0.9 after resuscitation. MRI reviewed. Having her baseline bowel habits Regular diet adequate analgesia she can be discharged home for followup at [facility] with her bariatric surgeon Code(s): R10.9 - UNSPECIFIED ABDOMINAL PAIN Qualifiers: Abdominal location: epigastric Qualified Code(s): R10.13 - Epigastric pain (2) COPD (chronic obstructive pulmonary disease) Code(s): J44.9 - CHRONIC OBSTRUCTIVE PULMONARY DISEASE, UNSPECIFIED Qualifiers: COPD type: unspecified COPD Qualified Code(s): J44.9 - Chronic obstructive pulmonary disease, unspecified (3) Obesity due to excess calories with serious comorbidity Code(s): E66.09 - OTHER OBESITY DUE TO EXCESS CALORIES Qualifiers: Obesity classification: adult class 3 (BMI >= 40) Body mass index: BMI 50.0 -59.9 Qualified Code(s): E66.01 - Morbid (severe) obesity due to excess calories; Z68.43 - Body mass index (BMI) 50-59.9 , adult; Z68.43 - Body mass index (BMI) 50-59.9 , adult; Z68.43 - Body mass index (BMI) 50-59.9 , adult; Z68.43 - Body mass index (BMI) 50-59.9 , adult (4) Chest pain Code(s): R07.9 - CHEST PAIN, UNSPECIFIED (5) Elevated troponin Code(s): R74.8 - ABNORMAL LEVELS OF OTHER SERUM ENZYMES (6) Hypercholesterolemia Code(s): E78.0 - PURE HYPERCHOLESTEROLEMIA * DO NOT USE * (7) Nausea Code(s): R11.0 - NAUSEA (8) Uncontrolled hypertension Code(s): I10 - ESSENTIAL (PRIMARY) HYPERTENSION
--- NOTE | 2017-06-21 09:27 | PN ---
Progress Note, Physician History of Present Illness: Abd pain continues to improve, tolerating solid intake, having BM. - Current Medication List Current Medications: Active Medications Albuterol Sulfate (Ventolin 0.083% Nebulizer Soln -) 1 amp NEB QID PRN PRN Reason: WHEEZING Last Admin: 06/19/17 20:43 Dose: 1 amp Alprazolam (Xanax -) 1 mg PO DAILY PRN PRN Reason: ANXIETY Last Admin: 06/19/17 01:27 Dose: 1 mg Atorvastatin Calcium (Lipitor -) 10 mg PO HS [facility] Last Admin: 06/20/17 21:23 Dose: 10 mg Budesonide (Pulmicort 0.5 Mg Nebulizer -) 1 amp NEB RBID [facility] Last Admin: 06/20/17 20:44 Dose: 1 amp Clopidogrel Bisulfate (Plavix -) 75 mg PO DAILY [facility] Last Admin: 06/20/17 09:51 Dose: 75 mg Diltiazem HCl (Cardizem Cd -) 240 mg PO DAILY [facility] Last Admin: 06/20/17 09:50 Dose: 240 mg Furosemide (Lasix -) 20 mg PO DAILY [facility] Last Admin: 06/20/17 09:50 Dose: 20 mg Heparin Sodium (Porcine) (Heparin -) 5,000 unit SQ TID [facility] Last Admin: 06/21/17 05:55 Dose: Not Given CEFTRIAXONE 1 G/50 ML PREMIX (Ceftriaxone 1 Gm-D5w Bag) 50 mls @ 100 mls/hr IVPB DAILY [facility] Last Admin: 06/20/17 09:51 Dose: 100 mls/hr Metoclopramide HCl (Reglan Injection -) 10 mg IVPUSH Q6H PRN PRN Reason: NAUSEA AND/OR VOMITING Metronidazole (Flagyl -) 500 mg PO TID [facility] Last Admin: 06/21/17 05:53 Dose: 500 mg Nystatin (Nystatin Oral Suspension -) 500,000 units PO Q6HPO [facility] Last Admin: 06/21/17 05:53 Dose: 500,000 units Pantoprazole Sodium (Protonix -) 40 mg PO DAILY [facility] Last Admin: 06/20/17 09:50 Dose: 40 mg Valsartan (Diovan -) 80 mg PO DAILY [facility] Last Admin: 06/20/17 09:50 Dose: 80 mg - Objective Vital Signs: Vital Signs Temperature 98.7 F 06/21/17 06:56 Pulse Rate 78 06/21/17 06:56 Respiratory Rate 16 06/21/17 06:56 Blood Pressure 115/67 06/21/17 06:56 O2 Sat by Pulse Oximetry (%) 98 06/20/17 20:52 Constitutional: Yes: No Distress, Calm Neck: Yes: Supple Cardiovascular: Yes: Regular Rate and Rhythm Respiratory: Yes: Regular, CTA Bilaterally Gastrointestinal: Yes: Normal Bowel Sounds, Soft Edema: No Labs: CBC, BMP 06/21/17 05:25 06/21/17 05:25 INR, PTT INR 0.84 (0.82-1.09) L 06/17/17 17:11 - ....Imaging X-ray: Report Reviewed (06/20/2017 AXR: Ileus) Problem List - Problems (1) Demand ischemia Code(s): I24.8 - OTHER FORMS OF ACUTE ISCHEMIC HEART DISEASE (2) Enteritis Code(s): K52.9 - NONINFECTIVE GASTROENTERITIS AND COLITIS, UNSPECIFIED (3) Abdominal pain Code(s): R10.9 - UNSPECIFIED ABDOMINAL PAIN Qualifiers: Abdominal location: epigastric Qualified Code(s): R10.13 - Epigastric pain (4) History of gastric restrictive surgery Code(s): Z98.84 - BARIATRIC SURGERY STATUS (5) Asthma Code(s): J45.909 - UNSPECIFIED ASTHMA, UNCOMPLICATED (6) Elevated troponin Code(s): R74.8 - ABNORMAL LEVELS OF OTHER SERUM ENZYMES (7) Hypercholesterolemia Code(s): E78.0 - PURE HYPERCHOLESTEROLEMIA * DO NOT USE * (8) Hypertension Code(s): I10 - ESSENTIAL (PRIMARY) HYPERTENSION Qualifiers: Hypertension type: essential hypertension Qualified Code(s): I10 - Essential (primary) hypertension (9) Status post coronary artery stent placement Code(s): Z95.5 - PRESENCE OF CORONARY ANGIOPLASTY IMPLANT AND GRAFT (10) Old myocardial infarction Code(s): I25.2 - OLD MYOCARDIAL INFARCTION (11) ASHD (arteriosclerotic heart disease) Code(s): I25.10 - ATHSCL HEART DISEASE OF [place] CORONARY ARTERY W/O ANG PCTRS Assessment/Plan 1. Abdominal pain/discomfort referable to acute enteritis, possible partial SBO resolving 2. CAD post NSTEMI post PCI/stent angina pectoris with evidence of demand ischemic injury 3. Diastolic LV dysfunction with class 0-I NYHA classification LV failure, compensated/euvolemic 4. HTN 5. Hypercholesterolemia 6. Bronchial asthma/reactive airway disease recent exacerbation 7. CKD PLAN: 1. Continue Cardizem CD 240 qd 2. Continue Diovan 80 qd 3. Continue Lipitor 10 qd 4. Continue Plavix 75 qd 5. Continue Lasix with caution 6. No additional cardiovascular intervention or evaluation indicated at this point for the above noted presentation (elevated Troponin I), to F/U with Dr. John Solano post D/C
[2017-06-21] MEDS ORDERED: PT OWN MED DRAWER 7, Y5N ONE (09:57)
[2017-06-21] MEDS: VALSARTAN 80 MG TABLET (UD) PO SCH (10:01)
[2017-06-21] MEDS: FUROSEMIDE 20 MG TABLET (FP) PO SCH (10:01)
[2017-06-21] MEDS: CLOPIDOGREL BISULFATE 75 MG TABLET (FP) PO SCH (10:01)
[2017-06-21] MEDS: CEFTRIAXONE 1 G/50 ML PREMIX 50 ML IVPB SCH (10:01)
[2017-06-21] MEDS: PANTOPRAZOLE 40 MG TABLET (FP) PO SCH (10:02)
[2017-06-21] MEDS ORDERED: LORazepam 1 MG TABLET PO PRN (11:19)
--- NOTE | 2017-06-21 11:47 | PN ---
Progress Note, Physician Chief Complaint: patient seen and examined still tenderness on exam abdominal pain has improved - Current Medication List Current Medications: Active Medications Albuterol Sulfate (Ventolin 0.083% Nebulizer Soln -) 1 amp NEB QID PRN PRN Reason: WHEEZING Last Admin: 06/19/17 20:43 Dose: 1 amp Alprazolam (Xanax -) 1 mg PO DAILY PRN PRN Reason: ANXIETY Last Admin: 06/19/17 01:27 Dose: 1 mg Atorvastatin Calcium (Lipitor -) 10 mg PO HS [facility] Last Admin: 06/20/17 21:23 Dose: 10 mg Budesonide (Pulmicort 0.5 Mg Nebulizer -) 1 amp NEB RBID [facility] Last Admin: 06/20/17 20:44 Dose: 1 amp Clopidogrel Bisulfate (Plavix -) 75 mg PO DAILY [facility] Last Admin: 06/21/17 10:01 Dose: 75 mg Diltiazem HCl (Cardizem Cd -) 240 mg PO DAILY [facility] Last Admin: 06/21/17 10:01 Dose: 240 mg Furosemide (Lasix -) 20 mg PO DAILY [facility] Last Admin: 06/21/17 10:01 Dose: 20 mg Heparin Sodium (Porcine) (Heparin -) 5,000 unit SQ TID [facility] Last Admin: 06/21/17 05:55 Dose: Not Given CEFTRIAXONE 1 G/50 ML PREMIX (Ceftriaxone 1 Gm-D5w Bag) 50 mls @ 100 mls/hr IVPB DAILY [facility] Last Admin: 06/21/17 10:01 Dose: 100 mls/hr Lorazepam (Ativan -) 1 mg PO DAILY PRN PRN Reason: ANXIETY Metoclopramide HCl (Reglan Injection -) 10 mg IVPUSH Q6H PRN PRN Reason: NAUSEA AND/OR VOMITING Metronidazole (Flagyl -) 500 mg PO TID [facility] Last Admin: 06/21/17 05:53 Dose: 500 mg Nystatin (Nystatin Oral Suspension -) 500,000 units PO Q6HPO [facility] Last Admin: 06/21/17 05:53 Dose: 500,000 units Pantoprazole Sodium (Protonix -) 40 mg PO DAILY [facility] Last Admin: 06/21/17 10:02 Dose: 40 mg Valsartan (Diovan -) 80 mg PO DAILY [facility] Last Admin: 06/21/17 10:01 Dose: 80 mg - Objective Vital Signs: Vital Signs Temperature 98.8 F 06/21/17 09:49 Pulse Rate 83 06/21/17 09:49 Respiratory Rate 20 06/21/17 09:49 Blood Pressure 143/80 06/21/17 09:49 O2 Sat by Pulse Oximetry (%) 98 06/20/17 20:52 Constitutional: Yes: Calm Cardiovascular: Yes: Regular Rate and Rhythm, S1, S2 Respiratory: Yes: CTA Bilaterally Gastrointestinal: Yes: Normal Bowel Sounds, Soft Edema: No Neurological: Yes: Alert, Oriented Labs: CBC, BMP 06/21/17 05:25 06/21/17 05:25 INR, PTT INR 0.84 (0.82-1.09) L 06/17/17 17:11 Problem List - Problems (1) Abdominal pain Assessment/Plan: imprvoing partial SBO on regular diet stil abdomnal pain on exam iv abx plan to dc home in AM Code(s): R10.9 - UNSPECIFIED ABDOMINAL PAIN Qualifiers: Abdominal location: epigastric Qualified Code(s): R10.13 - Epigastric pain (2) COPD (chronic obstructive pulmonary disease) Assessment/Plan: pulmicort nebulizer Code(s): J44.9 - CHRONIC OBSTRUCTIVE PULMONARY DISEASE, UNSPECIFIED Qualifiers: COPD type: unspecified COPD Qualified Code(s): J44.9 - Chronic obstructive pulmonary disease, unspecified (3) H/O non-ST elevation myocardial infarction (NSTEMI) Assessment/Plan: plavix and lipitor Code(s): I25.2 - OLD MYOCARDIAL INFARCTION (4) Diastolic CHF Assessment/Plan: moira choudhury lasix Code(s): I50.30 - UNSPECIFIED DIASTOLIC (CONGESTIVE) HEART FAILURE Assessment/Plan dc home in AM
--- NOTE | 2017-06-21 11:49 | DS ---
Physical Examination Vital Signs: Vital Signs Temperature 98.8 F 06/21/17 09:49 Pulse Rate 83 06/21/17 09:49 Respiratory Rate 20 06/21/17 09:49 Blood Pressure 143/80 06/21/17 09:49 O2 Sat by Pulse Oximetry (%) 98 06/20/17 20:52 Constitutional: Yes: Calm Neck: Yes: Trachea Midline Cardiovascular: Yes: Regular Rate and Rhythm Respiratory: Yes: CTA Bilaterally Gastrointestinal: Yes: Normal Bowel Sounds, Soft Neurological: Yes: Alert, Oriented Labs: CBC, BMP 06/21/17 05:25 06/21/17 05:25 Discharge Summary Reason For Visit: ELEVATION OF CARDIC ENZYMES,NAUSEA Current Active Problems Abdominal pain (Acute) COPD (chronic obstructive pulmonary disease) (Acute) Demand ischemia (Acute) Diastolic CHF (Acute) Dilated bowel (Acute) Enteritis (Acute) History of gastric restrictive surgery (Acute) Leukocytosis (Acute) Obesity due to excess calories with serious comorbidity (Acute) Old myocardial infarction (Acute) Hospital Course: 62 F with pmhx of CAD, NC X2 in (), HTN, NC s/p Stent, Asthma, Bronchitis and COPD who presents with abdominal pain since last night. States sh3 had associated nausea, that has been intermittent in nature. Pain has been cramping , and had increased in intensity. She was recently admitted and d/c'd on 06/08 for COPD Exacerbation/bronchitis and finished a course of Augmentin. No fevers or chills. States she has been on a dose of Prednisone. Denies any chest pain, pressure or shortness of breath. abdominal pain secondary to enteritis and partial SBO now improving seen by surgery was NPO then slowly advanced diet on iv antibiotics seen by cardiology as well pulm on pulmicort has not gotten steroids( prednsione ) since admission Condition: Guarded - Instructions Referrals: Сергей Alamo MD [Primary Care Provider] - John Solano MD [Staff Physician] - 2 Weeks Disposition: HOME - Home Medications Comprehensive Discharge Medication List: Ambulatory Orders Clopidogrel Bisulfate [Clopidogrel] 75 mg PO DAILY 10/28/15 Valsartan [Diovan] 80 mg PO DAILY 10/28/15 Diltiazem Cd [Cardizem Cd -] 240 mg PO DAILY 03/26/16 Furosemide [Lasix -] 20 mg PO DAILY 03/26/16 Pravastatin Sodium 20 mg PO DAILY 03/26/16 Budesonide/Formeterol Fumarate [SYMBICORT 160/4.5mcg -] 2 puff IH BID inhaler 06/08/17 Prednisone [Deltasone -] 0 mg PO DAILY 06/17/17
[2017-06-21] MEDS: BUDESONIDE 0.5 MG/2 ML INH SUSP VIAL NEB SCH ×2 (12:10→20:10)
--- NOTE | 2017-06-21 18:24 | PN ---
GI Progress Note Subjective: had a bowel movement today and passed a lot of gas - Objective Vital Signs: Vital Signs Temperature 98.3 F 06/21/17 17:11 Pulse Rate 87 06/21/17 17:11 Respiratory Rate 20 06/21/17 17:11 Blood Pressure 142/79 06/21/17 17:11 O2 Sat by Pulse Oximetry (%) 98 06/21/17 09:00 Constitutional: Well Nourished Eyes: Yes: Conjunctiva Clear HENT: Yes: Atraumatic Neck: Yes: Supple Cardiovascular: Yes: Regular Rate and Rhythm Respiratory: Yes: CTA Bilaterally ...Palpate: Yes: Soft, Tenderness (--mild). No: Firm/Rigid, Guarding, Hepatomegaly, Mass, Pulsatile Mass, Splenomegaly ...Percussion: Yes: Tympanitic Labs: CBC, BMP 06/21/17 05:25 06/21/17 05:25 INR, PTT INR 0.84 (0.82-1.09) L 06/17/17 17:11 Problem List - Problems (1) Dilated bowel Assessment/Plan: resolving R> continue low fiber lactose free diet colonoscopy as an outpatient, the patient was made aware to follow-up Code(s): [id number] -
[2017-06-21] MEDS: ATORVASTATIN CA 10 MG TABLET (FP) PO SCH (22:40)
[2017-06-21] MEDS ORDERED: morphine CARPU-JECT 10 MG/1 ML DISP.SYRIN IVPUSH ONE (23:13)
[2017-06-22] MEDS: HEPARIN NA (PORCINE) 5,000 UNITS/ML 1ML VIAL SQ SCH ×2 (06:02→14:13)
[2017-06-22] MEDS: metroNIDAZOLE 250 MG TABLET PO SCH ×2 (06:04→14:13)
[2017-06-22] MEDS: METOCLOPRAMIDE HCL 10 MG TABLET (FP) PO SCH ×2 (06:04→12:09)
[2017-06-22] MEDS: NYSTATIN 500,000 UNITS/5 ML SUSPENSION PO SCH ×3 (06:04→12:10)
[2017-06-22 06:50] VITALS: PULSE 85
[2017-06-22] MEDS: BUDESONIDE 0.5 MG/2 ML INH SUSP VIAL NEB SCH (08:25)
[2017-06-22] MEDS ORDERED: PT OWN MED DRAWER 7, Y5N ONE (09:27)
[2017-06-22 09:53] VITALS: BP 140/84; TEMP 99
--- NOTE | 2017-06-22 10:02 | PN ---
Progress Note (short form) - Note Progress Note: Chief Complaint: Events noted, notes reviewed, denies any chest pain or dyspnea , abdominal discomfort persists but improving History of Present Illness: Seen and examined. Events noted, notes reviewed, denies any chest pain or dyspnea, abdominal discomfort persists but improving - Current Medication List Current Medications Albuterol Sulfate (Ventolin 0.083% Nebulizer Soln -) 1 amp NEB QID PRN PRN Reason: WHEEZING Last Admin: 06/19/17 20:43 Dose: 1 amp Atorvastatin Calcium (Lipitor -) 10 mg PO HS [facility] Last Admin: 06/21/17 22:40 Dose: 10 mg Budesonide (Pulmicort 0.5 Mg Nebulizer -) 1 amp NEB RBID [facility] Last Admin: 06/21/17 20:10 Dose: 1 amp Clopidogrel Bisulfate (Plavix -) 75 mg PO DAILY [facility] Last Admin: 06/21/17 10:01 Dose: 75 mg Diltiazem HCl (Cardizem Cd -) 240 mg PO DAILY [facility] Last Admin: 06/21/17 10:01 Dose: 240 mg Furosemide (Lasix -) 20 mg PO DAILY [facility] Last Admin: 06/21/17 10:01 Dose: 20 mg Heparin Sodium (Porcine) (Heparin -) 5,000 unit SQ TID [facility] Last Admin: 06/22/17 06:02 Dose: Not Given CEFTRIAXONE 1 G/50 ML PREMIX (Ceftriaxone 1 Gm-D5w Bag) 50 mls @ 100 mls/hr IVPB DAILY [facility] Last Admin: 06/21/17 10:01 Dose: 100 mls/hr Lorazepam (Ativan -) 1 mg PO DAILY PRN PRN Reason: ANXIETY Last Admin: 06/21/17 23:06 Dose: 1 mg Metoclopramide HCl (Reglan -) 5 mg PO TIDAC [facility] Last Admin: 06/22/17 06:04 Dose: 5 mg Metronidazole (Flagyl -) 500 mg PO TID [facility] Last Admin: 06/22/17 06:04 Dose: 500 mg Nystatin (Nystatin Oral Suspension -) 500,000 units PO Q6HPO [facility] Last Admin: 06/22/17 06:10 Dose: Not Given Pantoprazole Sodium (Protonix -) 40 mg PO DAILY [facility] Last Admin: 06/21/17 10:02 Dose: 40 mg Valsartan (Diovan -) 80 mg PO DAILY [facility] Last Admin: 06/21/17 10:01 Dose: 80 mg - Objective Vital Signs: Last Vital Signs Temp Pulse Resp BP Pulse Ox 99.0 F 85 18 140/84 97 06/22/17 09:52 06/22/17 09:52 06/22/17 09:52 06/22/17 09:52 06/21/17 21:00 Intake & Output 06/19/17 06/20/17 06/21/17 06/22/17 23:59 23:59 23:59 23:59 Intake Total 2550 1905 870 Balance 2550 1905 870 Constitutional: No Distress Calm Neck: Supple Negative JVD No Bruit Respiratory: Clear to A&P Cardiovascular: S1 S2 Regular Rate and Rhythm Gastrointestinal: Soft Benign Normal Bowel Sounds Ext: Negative Edema Labs: CBC, BMP 06/21/17 05:25 06/21/17 05:25 Hepatic Panel Total Bilirubin 1.2 mg/dL (0.2-1.0) H 06/19/17 12:59 AST 22 U/L (15-37) D 06/19/17 12:59 ALT 38 U/L (12-78) 06/19/17 12:59 Alkaline Phosphatase 56 U/L (45-117) 06/19/17 12:59 Albumin 3.2 g/dl (3.4-5.0) L 06/19/17 12:59 Assessment/Plan Assessment: 1. Abdominal pain/discomfort referable to acute enteritis possible adhesions, resolving 2. CAD post NSTEMI post PCI/stent angina pectoris with evidence of demand ischemic injury, stable 3. Diastolic LV dysfunction with class 0-I NYHA classification LV failure, compensated/euvolemic 4. HTN 5. Hypercholesterolemia 6. Bronchial asthma/reactive airway disease recent exacerbation 7. CKD PLAN: 1. Continue Cardizem CD 2. Continue Diovan 3. Continue Statin/Lipitor therapy 4. Continue Plavix 5. Continue Lasix with caution 6. No additional cardiovascular intervention or evaluation indicated at this point for the above noted presentation (elevated Troponin I), to F/U with Dr. John Solano post D/C Cathryn Ferraro MD
[2017-06-22] MEDS: CEFTRIAXONE 1 G/50 ML PREMIX 50 ML IVPB SCH (10:06)
[2017-06-22] MEDS: VALSARTAN 80 MG TABLET (UD) PO SCH (10:06)
[2017-06-22] MEDS: PANTOPRAZOLE 40 MG TABLET (FP) PO SCH (10:06)
[2017-06-22] MEDS: CLOPIDOGREL BISULFATE 75 MG TABLET (FP) PO SCH (10:06)
[2017-06-22] MEDS: FUROSEMIDE 20 MG TABLET (FP) PO SCH (10:06)
--- NOTE | 2017-06-22 12:53 | PN ---
Progress Note, Physician Chief Complaint: awake alert ready to go home abdominal pain much less - Current Medication List Current Medications: Active Medications Albuterol Sulfate (Ventolin 0.083% Nebulizer Soln -) 1 amp NEB QID PRN PRN Reason: WHEEZING Last Admin: 06/19/17 20:43 Dose: 1 amp Atorvastatin Calcium (Lipitor -) 10 mg PO HS [facility] Last Admin: 06/21/17 22:40 Dose: 10 mg Budesonide (Pulmicort 0.5 Mg Nebulizer -) 1 amp NEB RBID [facility] Last Admin: 06/22/17 08:25 Dose: 1 amp Clopidogrel Bisulfate (Plavix -) 75 mg PO DAILY [facility] Last Admin: 06/22/17 10:06 Dose: 75 mg Diltiazem HCl (Cardizem Cd -) 240 mg PO DAILY [facility] Last Admin: 06/22/17 10:06 Dose: 240 mg Furosemide (Lasix -) 20 mg PO DAILY [facility] Last Admin: 06/22/17 10:06 Dose: 20 mg Heparin Sodium (Porcine) (Heparin -) 5,000 unit SQ TID [facility] Last Admin: 06/22/17 06:02 Dose: Not Given CEFTRIAXONE 1 G/50 ML PREMIX (Ceftriaxone 1 Gm-D5w Bag) 50 mls @ 100 mls/hr IVPB DAILY [facility] Last Admin: 06/22/17 10:06 Dose: 100 mls/hr Lorazepam (Ativan -) 1 mg PO DAILY PRN PRN Reason: ANXIETY Last Admin: 06/21/17 23:06 Dose: 1 mg Metoclopramide HCl (Reglan -) 5 mg PO TIDAC [facility] Last Admin: 06/22/17 12:09 Dose: 5 mg Metronidazole (Flagyl -) 500 mg PO TID [facility] Last Admin: 06/22/17 06:04 Dose: 500 mg Nystatin (Nystatin Oral Suspension -) 500,000 units PO Q6HPO [facility] Last Admin: 06/22/17 12:10 Dose: Not Given Pantoprazole Sodium (Protonix -) 40 mg PO DAILY [facility] Last Admin: 06/22/17 10:06 Dose: 40 mg Valsartan (Diovan -) 80 mg PO DAILY [facility] Last Admin: 06/22/17 10:06 Dose: 80 mg - Objective Vital Signs: Vital Signs Temperature 99.0 F 01/16/18 09:52 Pulse Rate 85 06/22/17 09:52 Respiratory Rate 18 06/22/17 09:52 Blood Pressure 140/84 06/22/17 09:52 O2 Sat by Pulse Oximetry (%) 98 06/22/17 09:00 Constitutional: Yes: Calm Neck: Yes: Trachea Midline Cardiovascular: Yes: Regular Rate and Rhythm, S1, S2 Respiratory: Yes: CTA Bilaterally Gastrointestinal: Yes: Normal Bowel Sounds, Soft, Tenderness (mild) Edema: No Labs: CBC, BMP 06/21/17 05:25 06/21/17 05:25 INR, PTT INR 0.84 (0.82-1.09) L 06/17/17 17:11 Problem List - Problems (1) Abdominal pain Assessment/Plan: improving partial SBO on regular diet change abx to po plan to dc seen by GI and surgery Code(s): R10.9 - UNSPECIFIED ABDOMINAL PAIN Qualifiers: Abdominal location: epigastric Qualified Code(s): R10.13 - Epigastric pain (2) COPD (chronic obstructive pulmonary disease) Assessment/Plan: pulmicort nebulizer Code(s): J44.9 - CHRONIC OBSTRUCTIVE PULMONARY DISEASE, UNSPECIFIED Qualifiers: COPD type: unspecified COPD Qualified Code(s): J44.9 - Chronic obstructive pulmonary disease, unspecified (3) H/O non-ST elevation myocardial infarction (NSTEMI) Assessment/Plan: plavix and lipitor Code(s): I25.2 - OLD MYOCARDIAL INFARCTION (4) Diastolic CHF Assessment/Plan: diovan,cardizem,lasix Code(s): I50.30 - UNSPECIFIED DIASTOLIC (CONGESTIVE) HEART FAILURE
[2017-06-22] MEDS ORDERED: ACETAMINOPHEN 325 MG TABLET (FP) PO ONE (14:30)
== END 2017-06-22 15:32 | disposition home or self-care (01) | DRG 392 ==
LOC: JER 13:53 → JERBED 21:13 → J8W 06-18 20:44
PROVIDERS: ADMIT Internal Medicine; ATTEND Family Medicine
DX: K52.9 Noninfective gastroenteritis and colitis, unspecified (principal); K56.609 Unspecified intestinal obstruction, unspecified as to partial versus complete obstruction; I13.0 Hypertensive heart and chronic kidney disease with heart failure and stage 1 through stage 4 chronic kidney disease, or unspecified chronic kidney disease; I50.30 Unspecified diastolic (congestive) heart failure; I24.8 Other forms of acute ischemic heart disease; Z68.43 Body mass index [BMI] 50.0-59.9, adult; J44.9 Chronic obstructive pulmonary disease, unspecified; N18.9 Chronic kidney disease, unspecified; I25.10 Atherosclerotic heart disease of native coronary artery without angina pectoris; Z98.61 Coronary angioplasty status; E78.5 Hyperlipidemia, unspecified; D72.829 Elevated white blood cell count, unspecified; E66.01 Morbid (severe) obesity due to excess calories; J45.909 Unspecified asthma, uncomplicated; Z87.891 Personal history of nicotine dependence
CPT/HCPCS: 36415; 71045-TC; 74018-TC; 74019-TC; 74176-TC; 80048; 80053; 80061; 81003; 81015; 82150; 82550; 82553; 83036; 83605; 83690; 83721; 83735; 84100; 84484; 85025; 85027; 85610; 85651; 87045; 87046; 87086; 87324; 87449; 87804; 93005; 93010; 94640; 99285-25; C8902; J1644